=== PATIENT | male | born 1960 | race Two or more races ===

== ENCOUNTER 2024-08-03 11:50 | Inpatient (IN) | payer BC, SELFPAY ==
[2024-08-03] VITALS (8 sets, daily range): BP systolic 107–176; BP diastolic 76–101; PULSE 95–124; RESP 16–95; TEMP 36.6–38.8; O2SAT 93–95; BMI 31.6; BMI 38.2
--- NOTE | 2024-08-03 12:28 | XR_ITS ---
Examination: PA lateral chest 2 views Technique: Upright PA lateral chest 2 views Exam date and time: August 03, 2024 1306 hrs. Indications: Coughing beginning one week ago. Findings: Bilateral pneumonia, diffuse and significant in the right lung, miliary type pattern Mild prominence of ventricle Intact osseous structures Impression: Bilateral pneumonia, significant in the right lung, differential would include active tuberculosis
[2024-08-03 13:13] LABS: Lactate (Lactic Acid) 1.3 mMol/L (0.4-2.0)
[2024-08-03 13:18] LABS: Basophils % (Auto) 0 % (0-2.5); Eosinophils % (Auto) 0 % (0-10); Hematocrit 47.6 % (41.0-53.0); Hemoglobin 16.8 g/dL (13.5-16.0); Immature Granulocytes % (Auto) 0 % (0-0); Immature Granulocytes Auto 0.03 Thou/mm3 (0.00-0.00); Lymphocytes # (Auto) 1.5 Thou/mm3 (1.0-4.8); Lymphocytes % (Auto) 19 % (10-50); Mean Corpuscular HGB Conc 35.3 g/dl (31.0-37.0); Mean Corpuscular Hemoglobin 31.3 pg (25.0-35.0); Mean Corpuscular Volume 89 fL (80-100); Monocytes # (Auto) 0.5 Thou/mm3 (0.0-0.8); Monocytes % (Auto) 7 % (0-12); Neutrophils # (Auto) 5.8 Thou/mm3 (1.8-7.7); Neutrophils % (Auto) 73 % (37-80); Nucleated Red Blood Cell % 0 /100 WBC (0); Platelet Count 136 Thou/mm3 (140-440); RDW Standard Deviation 38.9 fL (35.1-43.9); Red Blood Count 5.36 Miln/mm3 (4.50-5.90); White Blood Count 7.9 Thou/mm3 (3.8-10.6)
[2024-08-03] MEDS: ACETAMINOPHEN 500 MG TABLET 1000 MG PO (13:31)
[2024-08-03 13:40] LABS: Alanine Aminotransferase 59 U/L (10-49); Albumin, Serum 4.1 gm/dL (3.4-4.8); Albumin/Globulin Ratio 1.2 (1.2-2.2); Alkaline Phosphatase 52 U/L (46-116); Anion Gap 10 (7-16); Aspartate Amino Transferase 81 U/L (0-34); BUN/Creatinine Ratio 12 Ratio (12-20); Bilirubin,Total 1.7 mg/dL (0.3-1.2); Blood Urea Nitrogen 14 mg/dL (9-23); Calcium 8.7 mg/dL (8.3-10.6); Calcium (Corrected) 8.7 mg/dL (8.5-10.1); Carbon Dioxide 25.3 mMol/L (20.0-31.0); Chloride 96 mMol/L (98-107); Creatinine (Component) 1.2 mg/dL (0.6-1.3); Estimated Creatinine Clearance 63.6 mL/min (>60); Globulin 3.5 gm/dL (2.3-3.5); Glucose 109 mg/dL (74-106); Osmolality,Calculated 264 (275-295); Potassium 3.9 mMol/L (3.4-5.1); Procalcitonin 0.26 ng/ml (0.0-0.49); Sodium 131 mMol/L (136-145); Total Protein 7.6 gm/dL (5.7-8.2); eGFR > 60 See Note
--- NOTE | 2024-08-03 15:10 | PD.EDRME ---
Rapid Medical Screening Exam RME Arrival date/time: 08/03/24 11:50 64-year-old male presents emergency dept today for complaints of fever and cough with diagnosis of pneumonia outpatient yesterday Chief Complaint: Nausea/Vomiting/Diarrhea Time Seen by Provider: 08/03/24 12:05 Vital signs: Vital Signs Temperature 101.8 F H 08/03/24 12:15 Pulse Rate 109 H 08/03/24 12:15 Respiratory Rate 18 08/03/24 12:15 Blood Pressure 129/90 H 08/03/24 12:15 Pulse Oximetry (%) 95 08/03/24 12:15 Oxygen Delivery Method Room Air 08/03/24 12:15
--- NOTE | 2024-08-03 16:06 | EDNOTE_ITS ---
ED General RME/HPI General Chief complaint: Nausea/Vomiting/Diarrhea Stated complaint: SHORTNESS OF BREATH; RECENTLY DX'D WITH PNEUMONIA Time Seen by Provider: 08/03/24 12:05 Arrival date/time: 08/03/24 11:50 RME / HPI RME / HPI narrative: 08/03/24 11:50 64-year-old male presents emergency dept today for complaints of fever and cough with diagnosis of pneumonia outpatient yesterday DR. PINA MAIN ED EVALUATION: 64 year old male presents to the Emergency Department accompanied by his with complaints of productive cough, hemoptysis, fevers, chills, and shortness of breath. Patient was diagnosed with pneumonia and has been treated with azithromycin as an outpatient but is not getting better; patient states at night he cannot sleep from so much cough and the phlegm. He also mentions he has diarrhea. No nausea, vomiting, constipation, nor blood in the stools. PCP: [facility] Related Data Home Medications ?Medication ?Instructions ?Recorded ?Confirmed azithromycin 250 mg tablet See Rx Instructions PO .COM PLEX 08/04/24 08/04/24 (Zithromax) lisinopril 10 mg tablet 10 mg PO QDAY 08/04/2408/04 Allergies Allergy/AdvReac Type Severity Reaction Status Date / Time No Known Allergies Allergy Verified 08/03/24 11:56 Review of Systems Review of Systems Systems Reviewed: All systems reviewed, normal except as documented Past Medical History Social History SMOKING STATUS: Never smoker SUBSTANCE USE: does not use ALCOHOL: Never ED Exam Narrative Physical exam: GENERAL APPEARANCE: alert and oriented x 4, well-developed, well-nourished, dyspneic VITALS: All vitals were reviewed and the pulse ox is 95% on room air, which is normal according to my interpretation. HEENT: Normocephalic, atraumatic; pupils equal, round, reactive to light; EOMI; mucous membranes pink, moist; oropharynx clear NECK: Supple LUNGS: dyspneic but CTABL; no wheezes, no rales, no rhonchi HEART: Regular rate, regular rhythm; normal S1, S2; no murmurs ABDOMEN: non distended; normal BS; soft, no tenderness, no guarding, no rebound; no masses, no organomegaly, no hernia BACK: no CVA tenderness EXTREMITIES: atraumatic; no edema NEUROLOGIC: awake; alert and oriented x4; cranial nerves II-XII grossly intact; no focal sensory or motor deficits PSYCHIATRIC: appropriate mood and affect SKIN: warm, dry, normal color; no rashes Course Course Course Narrative: 1215: Sepsis alert initiated. Orders made at this time are congruent with ED Adult Sepsis Order List. Re-evaluation is to be completed. 1631: Fluids started. 1650:Sepsis reassessment performed consisting of lab review, vitals, physical exam including auscultation of heart, lungs, and visual evaluation of capillary refills, mucosal membranes and extremities. Quality Measures Current suspected stage: sepsis Possible source: pulmonary Blood cultures ordered: yes Antibiotic ordered: Yes Pertinent labs: 08/03/24 13:03 Lactic Acid 1.3 mMol/L (0.4-2.0) Procalcitonin 0.26 ng/ml (0.0-0.49) sepsis Orders Category Date Time Status Bedside COVID-19 Antigen Test NOW Care 08/03/24 12:28 Completed Bedside Influenza A&B Antigen Test NOW Care 08/03/24 12:28 Completed XR chest 2V Stat Exams 08/03/24 12:28 Completed Blood Culture (Lab) Stat Lab 08/03/24 12:57 Results CBC Stat Lab 08/03/24 13:03 Completed Cocci Serology IgM with reflex to IgG [Cocci Serology, Lab 08/03/24 13:33 Completed Unk History] Stat Comprehensive Metabolic Panel Stat Lab 08/03/24 13:03 Completed Lactate (Lactic Acid) Stat Lab 08/03/24 13:03 Completed Procalcitonin Stat Lab 08/03/24 13:03 Completed Quantiferon-TB* Stat Lab 08/03/24 15:16 Received Acetaminophen Tab [Tylenol ES Tab] Med 08/03/24 12:28 Discontinued 1,000 mg PO X1 ONE Sodium Chloride 0.9% 1000 ml [Ns] 1,000 ml Med 08/03/24 16:22 Discontinued IV 999 mls/hr cefTRIAXone/D5w 1gm IV premix [Rocephin/D5w 1gm IV Med 08/03/24 16:22 Discontinued premix] 1 gm in 50 ml IV X1 Vital Signs Vital signs: Vital Signs Temperature 101.8 F H 08/03/24 12:15 Pulse Rate 109 H 08/03/24 12:15 Respiratory Rate 18 08/03/24 12:15 Blood Pressure 129/90 H 08/03/24 12:15 Pulse Oximetry (%) 95 08/03/24 12:15 Oxygen Delivery Method Room Air 08/03/24 12:15 [facility] Patient data External records reviewed:: [facility] previous records (Reviewed last ED visit dated 01/12/22, discharged with the following: Hypertension) Clinical information provided by:: patient Social determinants that could affect healthcare access:: none Patient has the following chronic illnesses:: Recent pneumonia diagnosis How is presenting disease/condition affected by chronic disease/condition?: e xacerbated by Evaluation data The following diagnostics were reviewed and interpreted by me:: lab results and radiology exam(s) Lab and/or radiology exams considered but not ordered:: none Interpretation Summary: Procedure(s): XR chest 2V Accession Number(s): [id number] cc: Patricia (TJ),Erick SPENCER; Chaitanya Montoya MD; NO PRIMARY/FAMILY,PHYSICIAN~ Examination: PA lateral chest 2 views Technique: Upright PA lateral chest 2 views Exam date and time: August 03, 2024 1306 hrs. Indications: Coughing beginning one week ago. Findings: Bilateral pneumonia, diffuse and significant in the right lung, miliary type pattern Mild prominence of ventricle Intact osseous structures Impression: Bilateral pneumonia, significant in the right lung, differential would include active tuberculosis Dictated By: Chaitanya Montoya MD Medications Medications considered but not ordered:: none Medication administrations:: Medication Administration History Acetaminophen (Acetaminophen 325 Mg Tablet) 650 mg PO Q6H PRN PRN Reason: Fever >100.3, PAIN RATED 1-3 Stop: 09/02/24 17:24 Fluconazole (Fluconazole 100 Mg Tablet) 400 mg PO QDAY [facility] Stop: 08/11/24 14:59 Last Admin: 08/04/24 15:16 Dose: 400 mg Documented By: COSME Heparin Sodium (Porcine) (Heparin Sod Inj 5000 Unit/Ml Vial) 5,000 unit SC Q8HR [facility] Stop: 08/17/24 21:59 Last Admin: 08/05/24 05:07 Dose: 5,000 unit Documented By: ELVA Co-signed By: Admin: 08/04/24 21:19 Dose: 5,000 unit Documented By: ELVA Co-signed By: Admin: 08/04/24 13:49 Dose: 5,000 unit Documented By: COSME Co-signed By: TEENA Admin: 08/04/24 05:14 Dose: 5,000 unit Documented By: ANGLE Co-signed By: FRANTZ Admin: 08/03/24 21:49 Dose: 5,000 unit Documented By: INGRID Co-signed By: FRANTZ Azithromycin 500 mg/ Sodium (Chloride) 250 mls @ 250 mls/hr IV QDAY@2100 [facility] Stop: 08/10/24 19:44 Last Infusion: 08/04/24 22:17 Dose: Infused Documented By: Admin: 08/04/24 20:25 Dose: 250 mls/hr Documented By: Infusion: 08/04/24 19:20 Dose: Infused Documented By: Admin: 08/03/24 21:15 Dose: 250 mls/hr Documented By: INGRID Ceftriaxone Sodium/Dextrose (Rocephin/D5w 1gm Iv Premix) 1 gm in 50 mls @ 100 mls/hr IV QDAY [facility] Stop: 08/10/24 17:33 Last Infusion: 08/04/24 19:20 Dose: Infused Documented By: Admin: 08/04/24 08:31 Dose: 100 mls/hr Documented By: Infusion: 08/03/24 19:10 Dose: Infused Documented By: Admin: 08/03/24 18:40 Dose: 100 mls/hr Documented By: LIA Diltiazem HCl (Diltiazem In D5w 125 Mg) 125 mg in 125 mls @ 5 mls/hr IV .Q24H [facility] Stop: 09/03/24 10:24 Last Admin: 08/04/24 13:14 Dose: 5 mg/hr, 5 mls/hr Documented By: COSME Sodium Chloride (Ns) 1,000 mls @ 75 mls/hr IV .[id number] [facility] Stop: 09/03/24 22:39 Last Admin: 08/04/24 23:15 Dose: 75 mls/hr Documented By: ELVA Levalbuterol HCl (Levalbuterol Rt 0.63 Mg/3 Ml Nebu) 0.63 mg INH Q8HRRT PRN PRN Reason: SHORTNESS OF BREATH OR WHEEZE Stop: 09/02/24 18:15 Ondansetron HCl (Ondansetron Inj 2 Mg/Ml Inj 2 Ml) 4 mg IV Q6H PRN; Protocol PRN Reason: NAUSEA OR VOMITING Stop: 09/02/24 17:24 Discontinued Medications Acetaminophen (Acetaminophen 500 Mg Tablet) 1,000 mg PO X1 ONE Stop: 08/03/24 12:29 Last Admin: 08/03/24 13:31 Dose: 1,000 mg Documented By: OA Amlodipine Besylate (Amlodipine Besylate 5 Mg Tablet) 5 mg PO X1 ONE Stop: 08/04/24 00:16 Last Admin: 08/04/24 00:48 Dose: 5 mg Documented By: CV Diltiazem HCl (Diltiazem Inj 5 Mg/Ml Vial 5 Ml) 15 mg IV X1 ONE Stop: 08/03/24 21:05 Last Admin: 08/03/24 21:36 Dose: 15 mg Documented By: AD Diltiazem HCl (Diltiazem Inj 5 Mg/Ml Vial 5 Ml) 15 mg IV X1 ONE Stop: 08/03/24 23:58 Last Admin: 08/04/24 00:13 Dose: Not Given Documented By: CV Non-Admin Reason: Other, see note Comments: held per MD Garduno Ceftriaxone Sodium/Dextrose (Rocephin/D5w 1gm Iv Premix) 1 gm in 50 mls @ 100 mls/hr IV X1 ONE Stop: 08/03/24 16:51 Last Infusion: 08/03/24 17:23 Dose: Infused Documented By: Admin: 08/03/24 16:33 Dose: 100 mls/hr Documented By: CS Sodium Chloride (Ns) 1,000 mls @ 999 mls/hr IV .Q1H1M ONE Stop: 08/03/24 17:22 Last Infusion: 08/03/24 18:36 Dose: Infused Documented By: Admin: 08/03/24 16:31 Dose: 999 mls/hr Documented By: CS Sodium Chloride (Ns) 1,000 mls @ 999 mls/hr IV .Q1H1M ONE Stop: 08/03/24 18:31 Last Admin: 08/03/24 18:40 Dose: 999 mls/hr Documented By: CS Sodium Chloride (Ns) 500 mls @ 125 mls/hr IV .Q4H [facility] Stop: 09/02/24 18:29 Last Admin: 08/03/24 19:30 Dose: Not Given Documented By: CV Non-Admin Reason: Discontinued Sodium Chloride (Ns) 1,000 mls @ 125 mls/hr IV .Q8H [facility] Stop: 09/02/24 20:29 Last Infusion: 08/05/24 06:32 Dose: Infused Documented By: Admin: 08/04/24 13:13 Dose: 125 mls/hr Documented By: Infusion: 08/04/24 13:13 Dose: Infused Documented By: Admin: 08/04/24 05:14 Dose: 125 mls/hr Documented By: Infusion: 08/04/24 05:14 Dose: Infused Documented By: Admin: 08/03/24 21:20 Dose: 125 mls/hr Documented By: HV Magnesium Sulfate (Magnesium Sulfate Ivpb) 4 gm in 50 mls @ 12.5 mls/hr IV X1 ONE Stop: 08/04/24 00:49 Last Infusion: 08/04/24 19:20 Dose: Infused Documented By: KABaron Admin: 08/03/24 21:11 Dose: 12.5 mls/hr Documented By: HV Sodium Chloride (Ns) 500 mls @ 999 mls/hr IV .Q31M ONE Stop: 08/03/24 21:45 Last Infusion: 08/04/24 19:20 Dose: Infused Documented By: KABaron Admin: 08/03/24 21:51 Dose: 999 mls/hr Documented By: HV Potassium Chloride (Potassium Chloride 20 Meq Tabcr) 20 meq PO X1 ONE Stop: 08/03/24 20:51 Last Admin: 08/03/24 21:10 Dose: 20 meq Documented By: HV Sodium Chloride (Sodium Chloride Rt 10% 15 Ml Nebu) 5 ml INH X1 ONE Stop: 08/03/24 17:26 Tuberculin PPD (Tuberculin Ppd Inj 5 Unit/0.1 Ml Dose) 5 unit ID X1 ONE Stop: 08/03/24 17:31 Last Admin: 08/03/24 21:04 Dose: 5 unit Documented By: RL see above Consultations Consultation(s) initiated? (list below): Yes Consultation #1 (Physician, Specialty, Details): Discussed test HPI, PMHx, lab, radiology results and/or management with hospitalist. Will admit for further evaluation and management. Accepts patient for admission. Time: 16:55 Diagnosis Differential Diagnosis ED Complaint MDM: sepsis, URI, pneumonia Most likely diagnosis given after review of the tests above:: Pneumonia Sepsis Admission Indicated Admission indicated?: indicated Explain why admission is indicated or not indicated:: Diagnoses meet admission criteria. Admission Request Was there a request for admission?: Yes Admission Attestation Admission request attestation: Discussed case with [] from Hospitalist service regarding admission. Discussed patients ED course, exam findings, labs, and radiology results. The Hospitalist [agrees,declines] to accept the patient for admission. Disposition Plan Disposition Plan: Admit Medical Decision Making MDM Narrative MDM Narrative: I, Kita Garcia am scribing for and in the presence of Dr. Pina. Differential Diagnosis Differential Diagnosis: sepsis, URI, pneumonia Lab Data 08/05/24 04:10 08/05/24 04:10 Labs: Lab Results 08/03/24 08/03/24 Range/Units 13:03 13:33 WBC 7.9 (3.8-10.6) Thou/mm3 RBC 5.36 (4.50-5.90) Miln/mm3 Hgb 16.8 H (13.5-16.0) g/dL Hct 47.6 (41.0-53.0) % MCV 89 (80-100) fL MCH 31.3 (25.0-35.0) pg MCHC 35.3 (31.0-37.0) g/dl RDW Std Deviation 38.9 (35.1-43.9) fL Plt Count 136 L (140-440) Thou/mm3 Neut % (Auto) 73 (37-80) % Lymph % (Auto) 19 (10-50) % [place] % (Auto) 7 (0-12) % Eos % (Auto) 0 (0-10) % Baso % (Auto) 0 (0-2.5) % Neut # (Auto) 5.8 (1.8-7.7) Thou/mm3 Lymph # (Auto) 1.5 (1.0-4.8) Thou/mm3 [place] # (Auto) 0.5 (0.0-0.8) Thou/mm3 Eos # (Auto) 0.0 (0.0-0.5) Thou/mm3 Baso # (Auto) 0.0 (0.0-0.2) Thou/mm3 Immature Gran # (Auto) 0.03 H (0.00-0.00) Thou/mm3 Absolute Nucleated RBC 0.00 (0.00-0.00) Thou/mm3 Immature Gran % 0 (0-0) % Nucleated RBC % 0 (0) /100 WBC Sodium 131 L (136-145) mMol/L Potassium 3.9 (3.4-5.1) mMol/L Chloride 96 L (98-107) mMol/L Carbon Dioxide 25.3 (20.0-31.0) mMol/L Anion Gap 10 (7-16) BUN 14 (9-23) mg/dL Creatinine 1.2 (0.6-1.3) mg/dL Estim Creat Clear Calc 63.6 (>60) mL/min eGFR > 60 (60 - ) See Note BUN/Creatinine Ratio 12 (12-20) Ratio Glucose 109 H (74-106) mg/dL Calculated Osmolality 264 L (275-295) Lactic Acid 1.3 (0.4-2.0) mMol/L Calcium 8.7 (8.3-10.6) mg/dL Corrected Calcium 8.7 (8.5-10.1) mg/dL Total Bilirubin 1.7 H (0.3-1.2) mg/dL AST 81 H (0-34) U/L ALT 59 H (10-49) U/L Alkaline Phosphatase 52 (46-116) U/L Total Protein 7.6 (5.7-8.2) gm/dL Albumin 4.1 (3.4-4.8) gm/dL Globulin 3.5 (2.3-3.5) gm/dL Albumin/Globulin Ratio 1.2 (1.2-2.2) Procalcitonin 0.26 (0.0-0.49) ng/ml Coccidioides IgM Ab Positive A (Negative) Critical Care Time Critical Care Time Critical Care Time: Yes Total Critical Care Time (min.): 30 Attestation: The high probability of sudden, clinically significant deterioration in the patient?s condition required the highest level of my preparedness to intervene urgently. The services I provided to this patient were to treat and/or prevent clinically significant deterioration. Services included the following: chart data review, reviewing nursing notes and/or old charts, documentation time, cardiology consultants collaboration regarding findings and treatment options, medication orders and management, direct patient care, vital sign assessments and ordering, interpreting and reviewing diagnostic studies and lab tests. Aggregate critical care time includes only time during which I was engaged in work directly related to the patient?s care, as described above, whether at bedside or elsewhere in the Emergency Department. It did not include time spent performing other reported procedures or the services of residents, students, nurses or physician assistants. Discharge Plan Plan Patient Disposition: Admit Acute Care w/in Hospital Problem List Clinical Impression: Pneumonia, Sepsis
[2024-08-03] MEDS: SODIUM CHLORIDE 0.9% 1000 ML 1,000 ML 999 ML IV ×2 (16:31→18:40)
[2024-08-03] MEDS: cefTRIAXone/D5w 1gm IV premix 1 GM/50 ML BAG IV ×2 (16:33→18:40)
--- NOTE | 2024-08-03 17:38 | ESHP_ITS ---
<Statement entered by Carmelo Ramírez MD - 08/04/24 08:02> Patient coming in with complaints of shortness of breath and coughing along with hemoptysis. Patient has failed outpatient antibiotics, will admit and treat for pneumonia and rule out cocci infection and TB with PPD test. Patient has low suspicion for TB infection as he denies any weight loss, night sweats, severe fevers or exposure. Case discussed with team. Carmelo Ramírez MD PGY3 Documentation for date of: 08/03/24 HPI History of Present Illness History of present illness: Mr. Gan is a 64-year-old male with no past medical history presented to the ED complaining of shortness of breath and cough for the past 4 days for which he went to a clinic and was prescribed antibiotics patient states he took the antibiotics twice yesterday and once this morning without relief and continued to have worsening cough and noticed streaks of blood in his sputum. Patient denies any previous history of similar. Patient denies any fever chills or night sweats and also denies any recent weight loss. Patient also denies any recent travels or sick contacts. Patient denies any abdominal pain, nausea vomiting or diarrhea. Patient works in the [employer]. ED course In the ED initial vitals include blood pressure 129/90, pulse 109, respirations 18, temperature 101.8, saturating at 95% on room air. Labs are significant for hemoglobin 16.8, platelet 136, sodium 131, chloride 96, glucose 109, total billirubin 1.7, AST 81, ALT 59 In the ED patient is given 1 L bolus of normal saline, 1 g of acetaminophen, and 1 g of ceftriaxone PMH: No significant past medical history PSH: Appendectomy SH: Patient denies smoking and drug use, patient endorses to drinking beer occasionally at parties. Home meds: Patient does not take any medications at home Review of Systems Review of Systems Systems Reviewed: All systems reviewed, normal except as documented Exam Vital Signs Temp Pulse Resp BP Pulse Ox O2 Del Method 98.4 F 95 16 107/76 95 Room Air 08/03/24 16:01 08/03/24 16:01 08/03/24 16:01 08/03/24 16:01 08/03/24 16:01 08/03/24 16:01 Narrative Exam GENERAL: A&Ox3 . elderly obese male, appears to be in mild distress due to cough NEURO: no focal neurological deficits noted HEENT: Atraumatic, Normocephalic. mucous membranes moist. Eyes open, symmetrical, & clear HEART: Normal Heart Sounds LUNGS: decreased breath sounds heard bilaterally ABDOMEN: soft, non-distended, non-tender, bowel sounds heard, no guarding or rebound tenderness SKIN: No Rash or ecchymoses EXTREMITIES: No edema, tenderness, able to move all 4 extremities, pedal pulses palpated Results: Labs 08/04/24 05:28 08/04/24 05:28 Labs: Short CBC 08/03/24 Range/Units 13:03 WBC 7.9 (3.8-10.6) Thou/mm3 Hgb 16.8 H (13.5-16.0) g/dL Hct 47.6 (41.0-53.0) % Plt Count 136 L (140-440) Thou/mm3 BMP 08/03/24 13:03 Sodium 131 L Potassium 3.9 Chloride 96 L Carbon Dioxide 25.3 BUN 14 Creatinine 1.2 Glucose 109 H Calcium 8.7 Liver Function 08/03/24 Range/Units 13:03 Total Bilirubin 1.7 H (0.3-1.2) mg/dL AST 81 H (0-34) U/L ALT 59 H (10-49) U/L Alkaline Phosphatase 52 (46-116) U/L Albumin 4.1 (3.4-4.8) gm/dL Quality Measures Quality Measures sepsis Current suspected stage: sepsis Possible source: pulmonary Blood cultures ordered: yes Antibiotic ordered: Yes Medications Home Medications and Allergies Allergies Allergy/AdvReac Type Severity Reaction Status Date / Time No Known Allergies Allergy Verified 08/03/24 11:56 Visit Medications Acetaminophen (Acetaminophen 325 Mg Tablet) 650 mg PO Q6H PRN PRN Reason: Fever >100.3, PAIN RATED 1-3 Stop: 09/02/24 17:24 Heparin Sodium (Porcine) (Heparin Sod Inj 5000 Unit/Ml Vial) 5,000 unit SC Q8HR [facility] Stop: 08/17/24 21:59 Sodium Chloride (Ns) 1,000 mls @ 999 mls/hr IV .Q1H1M ONE Stop: 08/03/24 18:31 Sodium Chloride (Ns) 500 mls @ 125 mls/hr IV .Q4H [facility] Stop: 09/02/24 18:29 Azithromycin 500 mg/ Sodium (Chloride) 250 mls @ 250 mls/hr IV QDAY [facility] Stop: 08/10/24 17:33 Ceftriaxone Sodium/Dextrose (Rocephin/D5w 1gm Iv Premix) 1 gm in 50 mls @ 100 mls/hr IV QDAY [facility] Stop: 08/10/24 17:33 Azithromycin 500 mg/ Sodium (Chloride) 250 mls @ 250 mls/hr IV X1 ONE Stop: 08/03/24 18:44 Ondansetron HCl (Ondansetron Inj 2 Mg/Ml Inj 2 Ml) 4 mg IV Q6H PRN; Protocol PRN Reason: NAUSEA OR VOMITING Stop: 09/02/24 17:24 Discontinued Medications Acetaminophen (Acetaminophen 500 Mg Tablet) 1,000 mg PO X1 ONE Stop: 08/03/24 12:29 Last Admin: 08/03/24 13:31 Dose: 1,000 mg Ceftriaxone Sodium/Dextrose (Rocephin/D5w 1gm Iv Premix) 1 gm in 50 mls @ 100 mls/hr IV X1 ONE Stop: 08/03/24 16:51 Last Infusion: 08/03/24 17:23 Dose: Infused Sodium Chloride (Ns) 1,000 mls @ 999 mls/hr IV .Q1H1M ONE Stop: 08/03/24 17:22 Last Admin: 08/03/24 16:31 Dose: 999 mls/hr Sodium Chloride (Sodium Chloride Rt 10% 15 Ml Nebu) 5 ml INH X1 ONE Stop: 08/03/24 17:26 Tuberculin PPD (Tuberculin Ppd Inj 5 Unit/0.1 Ml Dose) 5 unit ID X1 ONE Stop: 08/03/24 17:31 Assessment & Plan Plan Mr. Gan is a 64-year-old male with no past medical history presented to the ED complaining of shortness of breath and cough for the past 4 days for which he went to a clinic and was prescribed antibiotics patient states he took the antibiotics twice yesterday and once this morning without relief and continued to have worsening cough and noticed streaks of blood in his sputum. Pt is admitted to the hospital for further management of community acquired pneumonia. #Sepsis 2/2 #Community acquired pneumonia #Hemoptysis -Pt is complaining of SOB, cough for 4 days, he noticed streaks of blood today in his sputum -Pt meets sepsis criteria with SIRS 2/4 tachycardia, and fever plus end organ damage, evidence of CHRIS -Lactic acid 1.4, procalcitonin 0.26 -In the ED pt receiced rocephin 1gm and 1L bolus fluid -CXR- Bilateral pneumonia, significant in the right lung Plan: -Blood and sputum cultured ordered -Supplemental oxygen PRN -IV fluids ordered -Cocci, RSV and TB PPD skin test ordered -Influenza and covid negative -Rocephin and azithromycin started 08/03- #Acute Kidney injury -On admission Cr 1.2 and baseline 1.0, likely secondary to decreased oral intake -IV fluids given -Will continue to monitor daily CMP -Avoid nephrotoxic and renally dose medications #Transiminitis #Hyerbillirubinemia -On Admission Total billirubin 1.7 and AST 81 and ALT 59 -Pt denies alcohol use or RUQ pain -Liver US ordered -will continue to monitor daily labs Health Maintenance Disposition: Med-tele DVT Prophylaxis: Heparin 5000 units SC Q8 hrs GI Prophylaxis: not indicated Diet: Cardiac Diet Lines: Peripheral lines Code status: Full Assessment and plan discussed with my senior resident Dr. Ramírez & attending physician Dr. Reina Moody (PGY-1)- Internal medicine resident Attending Provider Attestation/Addendum I attest that I was physically present for the evaluation, physical examination, lab and imaging review of the patient with the residents. I discussed the case with the residents and agree with the findings and plans of care as documented above. Patient is a 64 years old male with no known past medical history presented to the ED with complaint of shortness of breath and cough for past 4 days. Patient initially started having cough with phlegm and mild shortness of breath which has been worsening. He also has noticed streaks of blood in his sputum. He went to his PCP yesterday and received some antibiotics. Despite antibiotic, he continued to worsen and decided to visit the ED. Patient works in [employer] but denies any fever, chills, night sweats, recent weight loss, sick contacts or travel. In the ED, he was found to be tachycardic, had a temperature of 101.8 ?F. He was saturating well on room air. Lab results were significant for sodium of 131, total bilirubin 1.7, AST 81 and ALT 59. Chest x-ray was done, which shows bilateral extensive pneumonia, concerning for cocci/TB. We will admit the patient for management of sepsis secondary to community-acquired pneumonia. We will start him on IV Rocephin and azithromycin. We will obtain cocci, RSV serology and PPD. Patient also noted to have CHRIS with mild creatinine increased to 1.2, he received 30 cc/kg IV fluid, we will monitor closely for kidney function. Given patient's liver function, we will obtain liver ultrasound. Amanda Huang MD
--- NOTE | 2024-08-03 18:46 | XR_ITS ---
Examination: Abdomen sonogram, Limited Date and time of exam: August 03, 2024 2036 hrs. Indications: Elevated transaminase and bilirubin on laboratory examination today Technique: Real-time kim scale transabdominal sonographic images of the upper abdomen obtained. Findings: Contracted gallbladder Gallbladder wall 0.3 cm Common bile duct 0.4 cm Pancreatic head prominent 3.7 cm Liver 17.1 cm fatty infiltration Normal hepatopedal portal venous Patent IVC Impression: Recommend repeating the gallbladder portion of the study with fasting No extrahepatic biliary tract dilatation Prominent pancreatic head 3.7 cm, recommend CT scan abdomen pelvis post intravenous contrast follow-up
--- NOTE | 2024-08-03 18:50 | PC.NURSE ---
Received phone report from ED nurse Amelie at [phone]. Patient not on the floor yet. Gave hand off report to night nurse Vero RN and Diane RN.
[2024-08-03 19:27] LABS: Respiratory Syncytial Virus Ag Negative (Negative)
--- NOTE | 2024-08-03 20:39 | PC.NURSE ---
POWER CUTTING MACHINE OPERATOR called due to concern for change of rhythm, EKG, cxr, meds (see chart) ordered.
--- NOTE | 2024-08-03 20:43 | EKG_ITS ---
[facility] Test Date: 2024-08-03 Pat Name: CHANDAN MICHAELS [facility] Gynecologist: ROBERT : 1960 Requested By: Amanda Huang Order Number: [id number] [place] MD: Amanda Huang Measurements Intervals [place] Rate: 125 P: [place]: QRS: -5 QRSD: 93 T: 33 QT: 286 QTc: 413 Interpretive Statements ATRIAL FIBRILLATION WITH RAPID VENTRICULAR RESPONSE NONSPECIFIC T-WAVE ABNORMALITY ABNORMAL RHYTHM ECG No previous ECG available for comparison /store/S0/[id number]/ecg/[id number]
--- NOTE | 2024-08-03 20:49 | XR_ITS ---
Examination: AP chest single view Technique one AP portable upright chest single view Exam date and time: August 03, 2024: 36 hours Comparison August 03, 2024 1306 hrs. Indications: Atrial fibrillation chest pain today. Findings: Diffuse significant right lung pneumonia Mild enlargement cardiac contour with prominent vascular congestion Moderate osteopenia Impression: Diffuse significant bilateral pneumonia Mild heart failure
[2024-08-03] MEDS: TUBERCULIN PPD INJ 5 UNIT/0.1 ML DOSE ID (21:04)
--- NOTE | 2024-08-03 21:09 | PD.RESEVENT ---
Documentation for date of: 08/03/24 Event Note Event Note: At 12:35 PM rapid response was called to room 360 due to patient having A-fib. Record reviewed vitals were blood pressure 148/100, heart rate 124, oxygen saturation 95 on room air, respiratory rate 28. Patient denied shortness of breath, chest pain, was lying in the bed during the abdominal ultrasound. EKG showed A-fib with RVR, on telemetry heart rate was in the range 120s?140s. On examination rate irregularly irregular. On ausculation mild wheezing. Ordered diltiazem 15 mg IV once, magnesium 4 g IV once, bolus of fluids 500 ml, potassium, magnesium, lactate levels, chest x-ray. Plan of care discussed with attending Dr. Hoang, PGY-[address] Garduno. Cara David MD, PGY 1.
[2024-08-03] MEDS: POTASSIUM CHLORIDE 20 mEq TABCR PO (21:10)
[2024-08-03] MEDS: Magnesium Sulfate 4 GM Ivpb 4 GM/50 ML BAG IV (21:11)
[2024-08-03] MEDS: AZITHROMYCIN INJ 500 MG in SODIUM CHLORIDE 0.9% 250 ML 250 ML 250 MG IV (21:15)
--- NOTE | 2024-08-03 21:18 | PC.NURSE ---
TB skin test done on the inner left forearm at 2103. Med syringe expiration date 08/03/24 @ 2130.
[2024-08-03] MEDS: SODIUM CHLORIDE 0.9% 1000 ML 1,000 ML 125 ML IV (21:20)
[2024-08-03] MEDS: DILTIAZEM INJ 5 MG/ML VIAL 5 ML 15 MG IV (21:36)
[2024-08-03] MEDS: HEPARIN SOD INJ 5000 UNIT/ML VIAL SC (21:49)
[2024-08-03] MEDS: SODIUM CHLORIDE 0.9% 500 ML 500 ML 999 ML IV (21:51)
[2024-08-04] VITALS (11 sets, daily range): BP systolic 128–164; BP diastolic 85–97; PULSE 63–137; RESP 19–96; TEMP 36.1–37.3; O2SAT 92–97
[2024-08-04 00:22] LABS: Magnesium 2.1 mg/dL (1.6-2.6)
[2024-08-04] MEDS: amLODIPine BESYLATE 5 MG TABLET PO (00:48)
[2024-08-04] MEDS: SODIUM CHLORIDE 0.9% 1000 ML 1,000 ML 125 ML IV ×2 (05:14→13:13)
[2024-08-04] MEDS: HEPARIN SOD INJ 5000 UNIT/ML VIAL SC ×3 (05:14→21:19)
[2024-08-04 05:48] LABS: Quantiferon-TB* See Sep Rpt
[2024-08-04 05:51] LABS: Basophils % (Auto) 0 % (0-2.5); Eosinophils % (Auto) 0 % (0-10); Hematocrit 43.1 % (41.0-53.0); Hemoglobin 15.1 g/dL (13.5-16.0); Immature Granulocytes % (Auto) 1 % (0-0); Immature Granulocytes Auto 0.04 Thou/mm3 (0.00-0.00); Lymphocytes # (Auto) 2.1 Thou/mm3 (1.0-4.8); Lymphocytes % (Auto) 32 % (10-50); Mean Corpuscular Hemoglobin 31.3 pg (25.0-35.0); Mean Corpuscular Volume 89 fL (80-100); Monocytes # (Auto) 0.5 Thou/mm3 (0.0-0.8); Monocytes % (Auto) 7 % (0-12); Neutrophils # (Auto) 3.9 Thou/mm3 (1.8-7.7); Neutrophils % (Auto) 60 % (37-80); Nucleated Red Blood Cell % 0 /100 WBC (0); Platelet Count 126 Thou/mm3 (140-440); RDW Standard Deviation 39.7 fL (35.1-43.9); Red Blood Count 4.83 Miln/mm3 (4.50-5.90); White Blood Count 6.5 Thou/mm3 (3.8-10.6)
[2024-08-04 06:51] LABS: Glucose Estimated Average 120 mg/dL (80-131); Hemoglobin A1C 5.8 % Hgb (4.8-6.0)
[2024-08-04 06:57] LABS: Alanine Aminotransferase 51 U/L (10-49); Albumin, Serum 3.6 gm/dL (3.4-4.8); Albumin/Globulin Ratio 1.2 (1.2-2.2); Alkaline Phosphatase 45 U/L (46-116); Anion Gap 11 (7-16); Aspartate Amino Transferase 65 U/L (0-34); BUN/Creatinine Ratio 14 Ratio (12-20); Bilirubin,Total 0.8 mg/dL (0.3-1.2); Blood Urea Nitrogen 13 mg/dL (9-23); Calcium 7.9 mg/dL (8.3-10.6); Calcium (Corrected) 8.2 mg/dL (8.5-10.1); Carbon Dioxide 21.9 mMol/L (20.0-31.0); Cardiac Risk Estimate 5.9 RATIO (4.0-6.7); Chloride 103 mMol/L (98-107); Cholesterol 82 mg/dL (132-200); Creatinine (Component) 0.9 mg/dL (0.6-1.3); Estimated Creatinine Clearance 93.4 mL/min (>60); Globulin 2.9 gm/dL (2.3-3.5); Glucose 99 mg/dL (74-106); HDL Cholesterol 14 mg/dL (40-60); LDL Cholesterol,Calculated 49 mg/dL (0-130); Magnesium 2.6 mg/dL (1.6-2.6); Osmolality,Calculated 272 (275-295); Phosphorous 2.8 mg/dL (2.4-5.1); Potassium 4.2 mMol/L (3.4-5.1); Sodium 136 mMol/L (136-145); Thyroid Stimulating Hormone 0.81 uIU/mL (0.55-4.78); Total Protein 6.5 gm/dL (5.7-8.2); Triglycerides 96 mg/dL (30-150); eGFR > 60 See Note
[2024-08-04] MEDS: cefTRIAXone/D5w 1gm IV premix 1 GM/50 ML BAG IV (08:31)
--- NOTE | 2024-08-04 10:14 | PC.NURSE ---
drs at nurse station, updated about pt HR in 130's and high blood pressure. no new orders received. pt doesnt complain about any chest pain, laying in bed. per dr, will put orders in.
--- NOTE | 2024-08-04 10:24 | ECHO_ITS ---
Transthoracic Echo Report Ht (in): 65 Wt (lb): 230 Exam Location: Portable Status: Inpatient Deputy Chief Magistrate: GILBERT Rafael^^^^ Indications: Procedure Performed: BP: 138 / 82 HR: 110 Rhythm: Atrial fibrillation Technical Quality: Fair MEASUREMENTS (Male / Female) Normal Values 2D ECHO LV Diastolic Diameter PLAX 5.0 cm 4.2 - 5.9 / 3.9 - 5.3 cm LV Systolic Diameter PLAX 4.0 cm IVS Diastolic Thickness 1.1 cm 0.6 - 1.0 / 0.6 - 0.9 cm LVPW Diastolic Thickness 1.2 cm 0.6 - 1.0 / 0.6 - 0.9 cm LV Relative Wall Thickness 0.5 LVOT Diameter 1.7 cm Aortic Root Diameter 4.3 cm LA Systolic Diameter LX 4.2 cm 3.0 - 4.0 / 2.7 - 3.8 cm LV Ejection Fraction MOD 4C 36.3 % LV Cardiac Index MOD 4C 5459.3 cm?/min?m? LV Ejection Fraction 4C AL 39.5 % LV Cardiac Index 4C AL 6170.7 cm?/min?m? LA Volume Index 62.4 cm?/m? 16 - 28 cm?/m? DOPPLER AV Peak Velocity 150.0 cm/s AV Peak Gradient 9.0 mmHg AV Mean Gradient 6.0 mmHg AV Velocity Time Integral 23.9 cm AI Peak Velocity 274.0 cm/s AI Peak Gradient 30.0 mmHg AI Pressure Half Time 440.0 ms LVOT Peak Velocity 104.0 cm/s LVOT Peak Gradient 4.3 mmHg LVOT Velocity Time Integral 18.9 cm LVOT Cardiac Index 2109.9 cm?/min?m? AV Area Cont Eq vti 1.8 cm? AV Area Cont Eq pk 1.6 cm? MV Peak Velocity 81.8 cm/s MV Peak Gradient 2.7 mmHg MV Mean Velocity 50.3 cm/s MV Mean Gradient 1.0 mmHg MV Area PHT 4.7 cm? MR Peak Velocity 515.0 cm/s MR Peak Gradient 106.1 mmHg Mitral E Point Velocity 81.5 cm/s LV E' Lateral Velocity 8.2 cm/s Mitral E to LV E' Lateral Ratio 9.9 LV E' Septal Velocity 7.3 cm/s Mitral E to LV E' Septal Ratio 11.2 TR Peak Velocity 265.0 cm/s TR Peak Gradient 28.1 mmHg PV Peak Velocity 94.7 cm/s PV Peak Gradient 3.6 mmHg RVOT Peak Velocity 58.4 cm/s FINDINGS Left Ventricle The left ventricular ejection fraction is mildly decreased, mild global hypokinesis LVEF estimated at 40-45%. There is grade III diastolic dysfunction of the left ventricle (restrictive filling pattern). Right Ventricle The right ventricle is normal in size and systolic function. The estimated right ventricular systolic pressure, 45 mmHg. Left Atrium Moderately increased left atrial volume 62.4 mL/m?. Right Atrium The right atrium is normal by two-dimensional imaging, color flow and Doppler imaging with no structural abnormalities, no thrombus formation present. Atrial Septum The interatrial septum appears normal with no evidence of a shunt. Aorta The aorta is normal by two-dimensional, color flow and Doppler interrogation. Mitral Valve [id number] mitral regurgitation. Mild thickening of the mitral valve leaflets. Mild mitral annular calcification. Aortic Valve Aortic valve sclerosis. Eccentric aortic regurgitation jet directed at the mitral valve. Tricuspid Valve There is mild tricuspid valve regurgitation. Pulmonic Valve Trivial pulmonic valve regurgitation. Vessels The pulmonary artery appears normal. The inferior vena cava pulmonary and hepatic veins appear normal. Pericardium The pericardium is normal by two-dimensional imaging. There is no significant pericardial effusion. CONCLUSIONS indication: Afib w/ RVR Normal size LV with MIld global hypokinesis LVEF 40% Normal RV size and fucntion RVSP mildly elevated 45 mmHg LA is moderatley dilated Mild MAC with moderate 2+ miotral regurgitation Mild tricuspid regurgitation AOV scelerosis with mild aortic regurgitation Aminta Ansari (Electronically Signed) Final Date: 04 August 2024 12:57
--- NOTE | 2024-08-04 10:26 | XR_ITS ---
Examination: CT abdomen with intravenous contrast CT pelvis with intravenous contrast 2-D coronal reconstructions 2-D sagittal reconstructions Date and time of exam:August 04, 2024 1223 hrs. Indications: Ultrasound abdomen the grade 2024 enlarged pancreatic head. CTDI: vol (mGy) 11.9 DLP: (mGycm) 808 Technique: Multiple axial sections of the abdomen and pelvis have been obtained. 64 slice high-resolution scanner used. 3 mm axial sections have been obtained, post intravenous injection 60 cc [id number] 2-D sagittal, coronal reconstructions obtained. Low dose protocols were performed. One or more of the following dose reduction techniques were used; automated exposure control, adjustment of the mA and/or KV according to patient size, use of iterative reconstruction technique. Findings: Diffuse right lung pneumonia. Left base pneumonia Mild enlargement cardiac contour Fatty liver Contracted gallbladder No pancreatic edema AP dimension pancreatic head 2.6 cm No dilated pancreatic duct Bilateral benign renal cysts No hydronephrosis Aorta normal size No pericecal inflammatory change No bowel obstruction Intact urinary bladder Normal seminal vesicles Transverse prostate dimension 5.4 cm Impression: Diffuse right lung pneumonia Left base pneumonia No pancreatic mass or peripancreatic edema
--- NOTE | 2024-08-04 10:49 | PC.NURSE ---
pt has a order for diltezam iv drip.pt is on [facility] as a tele bed.charge nurse yayo updated that pt has a order to transfer pt to tele [facility] pt need iv drip .charge nurse updated she said they will move pt from 260 and after that we will transfer the patient 360 to 260.
--- NOTE | 2024-08-04 10:50 | PC.SS ---
Patient Ziggy Gan is a 64 Year old male admitted for SOB, Cough and PNA. SS contacted patient's , Devante Hanson who reports patient lives at home with her and is also surrogate decision maker, . Patient is able to ambulate independently prior to admission and was able to complete all ADL's independently. patient was seen at [facility] in [place]. Choice of Pharmacy is [facility]. At time of discharge patient will return home, family will provide transportation. Next of Kin, , Devante Hanson Discharge Plan: Home
--- NOTE | 2024-08-04 10:53 | PC.NURSE ---
dr groves updated that pt is at [facility] when pt move to tele they will start a drip .dr groves said she will come and see patient.
--- NOTE | 2024-08-04 11:35 | PC.NURSE ---
waiting for bed assigned to pt so pt moved to tele for iv drip.
--- NOTE | 2024-08-04 11:36 | PC.SS ---
SS follow up note; TB R/O pending. Patient is on IV ABX. Coxy results pending. When patient is medically cleared patient will return back home.
[2024-08-04] MEDS: DILTIAZEM in D5W 125 MG 125 MG/125 ML BAG IV (13:14)
--- NOTE | 2024-08-04 13:18 | PC.NURSE ---
room 260 ready for pt to be transferred. called and gave report to Radha REICH on phone at [phone]. pt went to CT then from CT pt will go to room 260
--- NOTE | 2024-08-04 13:26 | ESPR_ITS ---
<Statement entered by Uzair Wilkinson MD - 08/05/24 13:29> Senior Resident Attestation: I supervised/discussed management plan with business services intern physician Dr. Moody, and was involved in the care of this patient. I personally saw and examined the patient and discussed the assessment and plan with the entire medicine team, including my attending. I agree with the assessment and plan as documented. Patient's care was discussed with attending physician, Dr. Huang. Uzair Wilkinson MD PGY-2. Documentation for date of: 08/04/24 Subjective Subjective Interval history: Overnight team reported patient had rapid response and patient was found to be in A-fib with RVR with heart rate in 140s patient was given diltiazem and magnesium. Patient seen and examined at bedside this morning patient continues to be in A-fib with RVR with heart rate of 130s diltiazem drip is started patient is transferred to telemetry. An echocardiogram is ordered. patient denies any chest pain, or shortness of saturating on room air at 94%. Patient denies any abdominal pain constipation or dysuria/urinary urgency. Patient AST and ALT is elevated and ultrasound of the liver showed pancreatic head prominence 3.7cm. CT of abdomen/pelvis did not show pancreatic mass or peripancreatic edema. Cocci is positive, will start fluconazole. Exam Vital Signs Temp Pulse Resp BP Pulse Ox O2 Del Method O2 Flow Rate 98.7 F 137 H 19 135/96 H 95 Nasal Cannula 4 08/04/24 08:00 08/04/24 13:14 08/04/24 08:00 08/04/24 13:14 08/04/24 08:00 08/04/24 08:00 08/04/24 08:00 Narrative Exam GENERAL: A&Ox3 . elderly obese male, laying in bed, not in acute distress NEURO: no focal neurological deficits noted HEENT: Atraumatic, Normocephalic. mucous membranes moist. Eyes open, symmetrical, & clear HEART: Normal Heart Sounds LUNGS: decreased breath sounds heard bilaterally ABDOMEN: soft, non-distended, non-tender, bowel sounds heard, no guarding or rebound tenderness SKIN: No Rash or ecchymoses EXTREMITIES: No edema, tenderness, able to move all 4 extremities, pedal pulses palpated Objective Labs 08/05/24 04:10 08/05/24 04:10 Labs: Laboratory Results - last 24 hr 08/03/24 08/03/24 08/03/24 13:03 18:28 21:10 WBC RBC Hgb Hct MCV MCH MCHC RDW Std Deviation Plt Count Neut % (Auto) Lymph % (Auto) [place] % (Auto) Eos % (Auto) Baso % (Auto) Neut # (Auto) Lymph # (Auto) [place] # (Auto) Eos # (Auto) Baso # (Auto) Immature Gran # (Auto) Absolute Nucleated RBC Immature Gran % Nucleated RBC % Sodium 131 L Potassium 3.9 Chloride 96 L Carbon Dioxide 25.3 Anion Gap 10 BUN 14 Creatinine 1.2 Estim Creat Clear Calc 63.6 eGFR > 60 BUN/Creatinine Ratio [address] Glu mg/dL Hemoglobin A1c Calculated Osmolality 264 L Lactic Acid 1.3 1.0 Calcium 8.7 Corrected Calcium 8.7 Phosphorus Magnesium 2.1 Total Bilirubin 1.7 H AST 81 H ALT 59 H Alkaline Phosphatase 52 Total Protein 7.6 Albumin 4.1 Globulin 3.5 Albumin/Globulin Ratio 1.2 Triglycerides Cholesterol LDL Cholesterol, Calc HDL Cholesterol Cholesterol/HDL Ratio Procalcitonin 0.26 TSH RSV Rapid Negative 08/04/24 05:28 WBC 6.5 RBC 4.83 Hgb 15.1 Hct 43.1 MCV 89 MCH 31.3 MCHC 35.0 RDW Std Deviation 39.7 Plt Count 126 L Neut % (Auto) 60 Lymph % (Auto) 32 [place] % (Auto) 7 Eos % (Auto) 0 Baso % (Auto) 0 Neut # (Auto) 3.9 Lymph # (Auto) 2.1 [place] # (Auto) 0.5 Eos # (Auto) 0.0 Baso # (Auto) 0.0 Immature Gran # (Auto) 0.04 H Absolute Nucleated RBC 0.00 Immature Gran % 1 H Nucleated RBC % 0 Sodium 136 Potassium 4.2 Chloride 103 Carbon Dioxide 21.9 Anion Gap 11 BUN 13 Creatinine 0.9 Estim Creat Clear Calc 93.4 eGFR > 60 BUN/Creatinine Ratio [address] Glu mg/dL 120 Hemoglobin A1c 5.8 Calculated Osmolality 272 L Lactic Acid Calcium 7.9 L Corrected Calcium 8.2 L Phosphorus 2.8 Magnesium 2.6 Total Bilirubin 0.8 D AST 65 H ALT 51 H Alkaline Phosphatase 45 L Total Protein 6.5 Albumin 3.6 D Globulin 2.9 Albumin/Globulin Ratio 1.2 Triglycerides 96 Cholesterol 82 L LDL Cholesterol, Calc 49 HDL Cholesterol 14 L Cholesterol/HDL Ratio 5.9 Procalcitonin TSH 0.81 RSV Rapid Quality Measures Quality Measures sepsis Current suspected stage: sepsis Possible source: pulmonary Blood cultures ordered: yes Antibiotic ordered: Yes Assessment & Plan Assessment Current Active Medications: Generic Name Dose Route Start Last Admin Trade Name Freq PRN Reason Stop Dose Admin Acetaminophen 650 mg 08/03/24 17:25 Acetaminophen 325 Mg Tablet PO 09/02/24 17:24 Q6H PRN Fever >100.3, PAIN RATED 1-3 Heparin Sodium (Porcine) 5,000 unit 08/03/24 22:00 08/04/24 05:14 Heparin Sod Inj 5000 Unit/Ml Vial SC 08/17/24 21:59 5,000 unit Q8HR NANDO Administration Azithromycin 500 mg/ Sodium 250 mls @ 250 mls/hr 08/03/24 19:45 08/03/24 21:15 Chloride IV 08/10/24 19:44 250 mls/hr QDAY@2100 NANDO Administration Ceftriaxone Sodium/Dextrose 1 gm in 50 mls @ 100 mls/hr 08/03/24 17:34 08/04/24 08:31 Rocephin/D5w 1gm Iv Premix IV 08/10/24 17:33 100 mls/hr QDAY NANDO Administration Sodium Chloride 1,000 mls @ 125 mls/hr 08/03/24 20:30 08/04/24 13:13 Ns IV 09/02/24 20:29 125 mls/hr .Q8H NANDO Administration Diltiazem HCl 125 mg in 125 mls @ 5 mls/hr 08/04/24 10:25 08/04/24 13:14 Diltiazem In D5w 125 Mg IV 09/03/24 10:24 5 mg/hr .Q24H NANDO 5 mls/hr Administration 5 MG/HR Levalbuterol HCl 0.63 mg 08/03/24 18:16 Levalbuterol Rt 0.63 Mg/3 Ml Nebu INH 09/02/24 18:15 Q8HRRT PRN SHORTNESS OF BREATH OR WHEEZE Ondansetron HCl 4 mg 08/03/24 17:25 Ondansetron Inj 2 Mg/Ml Inj 2 Ml IV 09/02/24 17:24 Q6H PRN NAUSEA OR VOMITING Protocol Plan Mr. Gan is a 64-year-old male with no past medical history presented to the ED complaining of shortness of breath and cough for the past 4 days for which he went to a clinic and was prescribed antibiotics patient states he took the antibiotics twice yesterday and once this morning without relief and continued to have worsening cough and noticed streaks of blood in his sputum. Pt is admitted to the hospital for further management of community acquired pneumonia. #Sepsis 2/2 #Community acquired pneumonia #Cocci pneumonia #Hemoptysis - resolved -Pt is complaining of SOB, cough for 4 days, he noticed streaks of blood today in his sputum -Pt meets sepsis criteria with SIRS 2/4 tachycardia, and fever plus end organ damage, evidence of CHRIS -Lactic acid 1.4, procalcitonin 0.26 -In the ED pt receiced rocephin 1gm and 1L bolus fluid -CXR- Bilateral pneumonia, significant in the right lung -Cocci IgM positive Plan: -Blood and sputum cultured ordered -Supplemental oxygen PRN -IV fluids ordered -Cocci IgM positive, RSV negative TB PPD skin test ordered -Influenza and covid negative -Rocephin and azithromycin started 08/03- -Flucanazole 400mg daily ordered 07/04- -ID consult placed #A-fib with RVR, new onset -Overnight on 08/04 pt developed a-fib with RVR with HR above 140's -EKG is evident pf afib wit RVR with rate of 125 -Pt is given dose of diltiazam PO overnight -CHADs-VAS score 1 plan: -Diltiazam drip started -Echo ordered -will consider cardip consult if pt continues to be in afib despite diltiazam drip #Acute Kidney injury - resolved -On admission Cr 1.2 and baseline 1.0, likely secondary to decreased oral intake -IV fluids given -Will continue to monitor daily CMP -Avoid nephrotoxic and renally dose medications #Transiminitis #Hyerbillirubinemia -On Admission Total billirubin 1.7 and AST 81 and ALT 59 -Pt denies alcohol use or RUQ pain -Liver US - showed pancreatic head priminent 3.7cm -CT of abdomen/Pelvis did not show pancreatic mass or peripancreatic edema -will continue to monitor daily labs Health Maintenance Disposition: telemetry for diltiazam drip DVT Prophylaxis: Heparin 5000 units SC Q8 hrs GI Prophylaxis: not indicated Diet: Cardiac Diet Lines: Peripheral lines Code status: Full Assessment and plan discussed with my senior resident Dr. Wilkinson & attending physician Dr. Reina Moody (PGY-1)- Internal medicine resident Attending Provider Attestation/Addendum I attest that I was physically present for the evaluation, physical examination, lab and imaging review of the patient with the residents. I discussed the case with the residents and agree with the findings and plans of care as documented above. At bedside today, patient states he is feeling well and does not have new complaints.? He continues to have some cough, shortness of breath improved.? Was saturating well on room air.? LFTs noted to be improving.? Overnight, patient went into A-fib with RVR, received IV diltiazem with conversion back to sinus rhythm.? This morning, he again started having A-fib with RVR, we will start him on diltiazem drip.? Liver ultrasound yesterday showed enlarged pancreatic head at 3.7 cm, we will obtain CT abdomen/pelvis with contrast as recommended.? Blood pressure noted to be high at 164/96 this morning, we will monitor his blood pressure closely since he is started on diltiazem drip. Amanda Huang MD
[2024-08-04 13:44] LABS: Cocid Sro, CF/ID (UCD) NO CHG* See Sep Rpt
[2024-08-04 13:44] LABS: Cocci Serology, IgM Positive (Negative)
[2024-08-04] MEDS: FLUCONAZOLE 100 MG TABLET 400 MG PO (15:16)
--- NOTE | 2024-08-04 16:40 | ESPR_ITS ---
Subjective Subjective Interval history: pos cocci but recent rx initiation at the [address] [place] [address]. Exam Vital Signs Temp Pulse Resp BP Pulse Ox O2 Del Method O2 Flow Rate 97.2 F 119 H 20 135/96 H 97 Nasal Cannula 4 08/04/24 12:00 08/04/24 16:01 08/04/24 16:01 08/04/24 13:14 08/04/24 12:00 08/04/24 12:00 08/04/24 16:01 Narrative Exam on O2 but not distressed. Objective - Internal Medicine Labs 08/04/24 05:28 08/04/24 05:28 Labs: Laboratory Results - last 24 hr 08/03/24 08/03/24 08/03/24 13:33 18:28 21:10 WBC RBC Hgb Hct MCV MCH MCHC RDW Std Deviation Plt Count Neut % (Auto) Lymph % (Auto) [place] % (Auto) Eos % (Auto) Baso % (Auto) Neut # (Auto) Lymph # (Auto) [place] # (Auto) Eos # (Auto) Baso # (Auto) Immature Gran # (Auto) Absolute Nucleated RBC Immature Gran % Nucleated RBC % Sodium Potassium Chloride Carbon Dioxide Anion Gap BUN Creatinine Estim Creat Clear Calc eGFR BUN/Creatinine Ratio Glucose Estimated Ave Glu mg/dL Hemoglobin A1c Calculated Osmolality Lactic Acid 1.0 Calcium Corrected Calcium Phosphorus Magnesium 2.1 Total Bilirubin AST ALT Alkaline Phosphatase Total Protein Albumin Globulin Albumin/Globulin Ratio Triglycerides Cholesterol LDL Cholesterol, Calc HDL Cholesterol Cholesterol/HDL Ratio TSH Coccidioides IgM Ab Positive A RSV Rapid Negative 08/04/24 05:28 WBC 6.5 RBC 4.83 Hgb 15.1 Hct 43.1 MCV 89 MCH 31.3 MCHC 35.0 RDW Std Deviation 39.7 Plt Count 126 L Neut % (Auto) 60 Lymph % (Auto) 32 [place] % (Auto) 7 Eos % (Auto) 0 Baso % (Auto) 0 Neut # (Auto) 3.9 Lymph # (Auto) 2.1 [place] # (Auto) 0.5 Eos # (Auto) 0.0 Baso # (Auto) 0.0 Immature Gran # (Auto) 0.04 H Absolute Nucleated RBC 0.00 Immature Gran % 1 H Nucleated RBC % 0 Sodium 136 Potassium 4.2 Chloride 103 Carbon Dioxide 21.9 Anion Gap 11 BUN 13 Creatinine 0.9 Estim Creat Clear Calc 93.4 eGFR > 60 BUN/Creatinine Ratio [address] Glu mg/dL 120 Hemoglobin A1c 5.8 Calculated Osmolality 272 L Lactic Acid Calcium 7.9 L Corrected Calcium 8.2 L Phosphorus 2.8 Magnesium 2.6 Total Bilirubin 0.8 D AST 65 H ALT 51 H Alkaline Phosphatase 45 L Total Protein 6.5 Albumin 3.6 D Globulin 2.9 Albumin/Globulin Ratio 1.2 Triglycerides 96 Cholesterol 82 L LDL Cholesterol, Calc 49 HDL Cholesterol 14 L Cholesterol/HDL Ratio 5.9 TSH 0.81 Coccidioides IgM Ab RSV Rapid Assessment & Plan A&P Narrative 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 but if O2 need static or improved then stay with the flucon 400 will check procal in am and may move to all po by friday if that is neg Time Spent With Patient Time: Total time spent is greater than 50% in coordination of care (as documented) at patient's floor/unit and/or counseling patient:
--- NOTE | 2024-08-04 19:24 | ESCONSULT_ITS ---
RE: CHANDAN MICHAELS : 1960 DATE OF CONSULTATION: 08/04/2024 REFERRING PHYSICIAN: Dr. Huang. REASON FOR CONSULTATION: Valley fever recently started on treatment versus other pneumonia. HISTORY OF PRESENT ILLNESS: The patient is here for presumptive Valley fever. He was diagnosed recently apparently as an outpatient at the [facility] clinic, but he reports that he did not start treatment until very recently. He may have only started treatment on admission. He has been on azithromycin, Rocephin, and fluconazole. The fluconazole is oral, which is fine. He should probably finish 3 days of azithromycin tomorrow. If his procal is negative, we will probably stop the Rocephin or switch him to oral and stop the azithromycin on Friday. Fluconazole can be continued orally as we do not know its titer and we cannot get a result from [facility]. The patient's chest x-ray is abnormal. He is also on O2 He is on oxygen, but not distressed. Oxygen saturations are in the mid to upper 90s on 4 liters, so he may be less on 2 liters on nothing, but as long as he is above 90%, he may not qualify for home oxygen. The exam is otherwise benign. The patient denies stress. I do not think there is any reason to suspect TB at this time. His Valley fever test is positive as noted. I will check on him again superficially on Friday. DT: 16:44:18 TT: 18:22:00 Ref: [id number] - TID: [id number] [facility]
[2024-08-04] MEDS: AZITHROMYCIN INJ 500 MG in SODIUM CHLORIDE 0.9% 250 ML 250 ML 250 MG IV (20:25)
[2024-08-04] MEDS: SODIUM CHLORIDE 0.9% 1000 ML 1,000 ML 75 ML IV (23:15)
[2024-08-05] VITALS (14 sets, daily range): BP systolic 117–151; BP diastolic 79–99; PULSE 81–111; RESP 13–96; TEMP 36.1–36.6; O2SAT 95–100; BMI 38.3
[2024-08-05] MEDS: HEPARIN SOD INJ 5000 UNIT/ML VIAL SC ×3 (05:07→21:24)
[2024-08-05 05:41] LABS: Basophils % (Auto) 1 % (0-2.5); Eosinophils % (Auto) 0 % (0-10); Hematocrit 42.1 % (41.0-53.0); Hemoglobin 14.5 g/dL (13.5-16.0); Immature Granulocytes % (Auto) 1 % (0-0); Immature Granulocytes Auto 0.04 Thou/mm3 (0.00-0.00); Lymphocytes # (Auto) 3.1 Thou/mm3 (1.0-4.8); Lymphocytes % (Auto) 39 % (10-50); Mean Corpuscular HGB Conc 34.4 g/dl (31.0-37.0); Mean Corpuscular Volume 90 fL (80-100); Monocytes # (Auto) 0.6 Thou/mm3 (0.0-0.8); Monocytes % (Auto) 8 % (0-12); Neutrophils # (Auto) 4.2 Thou/mm3 (1.8-7.7); Neutrophils % (Auto) 52 % (37-80); Nucleated Red Blood Cell % 0 /100 WBC (0); Platelet Count 141 Thou/mm3 (140-440); Red Blood Count 4.67 Miln/mm3 (4.50-5.90)
[2024-08-05 06:21] LABS: Alanine Aminotransferase 52 U/L (10-49); Albumin, Serum 3.6 gm/dL (3.4-4.8); Albumin/Globulin Ratio 1.3 (1.2-2.2); Alkaline Phosphatase 43 U/L (46-116); Anion Gap 7 (7-16); Aspartate Amino Transferase 53 U/L (0-34); BUN/Creatinine Ratio 15 Ratio (12-20); Bilirubin,Total 0.8 mg/dL (0.3-1.2); Blood Urea Nitrogen 12 mg/dL (9-23); Calcium 8.2 mg/dL (8.3-10.6); Calcium (Corrected) 8.5 mg/dL (8.5-10.1); Carbon Dioxide 28.4 mMol/L (20.0-31.0); Chloride 104 mMol/L (98-107); Creatinine (Component) 0.8 mg/dL (0.6-1.3); Estimated Creatinine Clearance 105.1 mL/min (>60); Globulin 2.7 gm/dL (2.3-3.5); Glucose 89 mg/dL (74-106); Osmolality,Calculated 276 (275-295); Phosphorous 2.5 mg/dL (2.4-5.1); Potassium 3.5 mMol/L (3.4-5.1); Procalcitonin 0.15 ng/ml (0.0-0.49); Sodium 139 mMol/L (136-145); Total Protein 6.3 gm/dL (5.7-8.2); eGFR > 60 See Note
[2024-08-05 06:49] LABS: Hepatitis C Antibody Non Reactive (Non React)
[2024-08-05 08:21] LABS: HIV (1&2) Antibody Rapid Non-Reactive
[2024-08-05] MEDS: POTASSIUM CHLORIDE 20 mEq TABCR 40 MEQ PO (08:24)
[2024-08-05] MEDS: FLUCONAZOLE 100 MG TABLET 400 MG PO (08:24)
[2024-08-05] MEDS: cefTRIAXone/D5w 1gm IV premix 1 GM/50 ML BAG IV (08:24)
--- NOTE | 2024-08-05 08:31 | PC.SS ---
SS follow up note; SS contacted financial counselor Chelle in regards to patient obtaining medi-madi, She informed SS that yesterday morning referral was sent to the medical worker, at the time patient is pending call.
[2024-08-05] MEDS: DILTIAZEM in D5W 125 MG 125 MG/125 ML BAG IV (08:36)
--- NOTE | 2024-08-05 10:20 | ESPR_ITS ---
<Statement entered by Uzair Wilkinson MD - 08/06/24 14:20> Senior Resident Attestation: I supervised/discussed management plan with graphic design intern physician Dr. Moody, and was involved in the care of this patient. I personally saw and examined the patient and discussed the assessment and plan with the entire medicine team, including my attending. I agree with the assessment and plan as documented. Patient's care was discussed with attending physician, Dr. Huang. Uzair Wilkinson MD PGY-2. Documentation for date of: 08/05/24 Subjective Subjective Interval history: No acute overnight events reported. Patient seen and examined bedside this morning patient is still in A-fib with RVR with heart rate of 1 10-1 40s. Patient initially saturating 100% on 2 L oxygen and then turned off the oxygen patient continues to saturate at 100% on room air. Patient is notified atthat positive results and TB is negative patient is started on fluconazole and ID is consulted. Echo was done on 07/04 which showed HFrEF with EF of 40% patient is started on GDMT slowly with spironolactone and metoprolol for now and will consult cardio for further management. Patient denies any chest pain pressure or palpitations patient states he feels much better his shortness of breath has resolved he is continues to have a mild cough. Patient has no other complaints, labs are significant for potassium 3.5 and 40 mEq repleted. Blood cultures and sputum culture showed no growth at 24 hours. T. bili has resolved 0.8. Exam Vital Signs Temp Pulse Resp BP Pulse Ox O2 Del Method O2 Flow Rate 97.9 F 97 20 151/98 H 100 Nasal Cannula 2 08/05/24 08:00 08/05/24 08:36 08/05/24 08:00 08/05/24 08:36 08/05/24 08:00 08/05/24 08:00 08/05/24 08:00 Narrative Exam GENERAL: A&Ox3 . elderly obese male, laying in bed, not in acute distress NEURO: no focal neurological deficits noted HEENT: Atraumatic, Normocephalic. mucous membranes moist. Eyes open, symmetrical, & clear HEART: Normal Heart Sounds LUNGS: decreased breath sounds heard bilaterally ABDOMEN: soft, non-distended, non-tender, bowel sounds heard, no guarding or rebound tenderness SKIN: No Rash or ecchymoses EXTREMITIES: No edema, tenderness, able to move all 4 extremities, pedal pulses palpated Objective Labs 08/06/24 05:26 08/06/24 05:26 Labs: Laboratory Results - last 24 hr 08/03/24 08/05/24 13:33 04:10 WBC 8.0 RBC 4.67 Hgb 14.5 Hct 42.1 MCV 90 MCH 31.0 MCHC 34.4 RDW Std Deviation 41.0 Plt Count 141 Neut % (Auto) 52 Lymph % (Auto) 39 [place] % (Auto) 8 Eos % (Auto) 0 Baso % (Auto) 1 Neut # (Auto) 4.2 Lymph # (Auto) 3.1 [place] # (Auto) 0.6 Eos # (Auto) 0.0 Baso # (Auto) 0.0 Immature Gran # (Auto) 0.04 H Absolute Nucleated RBC 0.00 Immature Gran % 1 H Nucleated RBC % 0 Sodium 139 Potassium 3.5 D Chloride 104 Carbon Dioxide 28.4 Anion Gap 7 BUN 12 Creatinine 0.8 Estim Creat Clear Calc 105.1 eGFR > 60 BUN/Creatinine Ratio 15 Glucose 89 Calculated Osmolality 276 Calcium 8.2 L Corrected Calcium 8.5 Phosphorus 2.5 Magnesium 2.0 Total Bilirubin 0.8 AST 53 H ALT 52 H Alkaline Phosphatase 43 L Total Protein 6.3 Albumin 3.6 Globulin 2.7 Albumin/Globulin Ratio 1.3 Procalcitonin 0.15 Coccidioides IgM Ab Positive A Hepatitis C Antibody Non Reactive HIV 1&2 Antibody Rapid Non-Reactive Quality Measures Quality Measures sepsis Current suspected stage: sepsis (resolved) Possible source: pulmonary Blood cultures ordered: yes Antibiotic ordered: Yes Assessment & Plan Assessment Current Active Medications: Generic Name Dose Route Start Last Admin Trade Name Freq PRN Reason Stop Dose Admin Acetaminophen 650 mg 08/03/24 17:25 Acetaminophen 325 Mg Tablet PO 09/02/24 17:24 Q6H PRN Fever >100.3, PAIN RATED 1-3 Fluconazole 400 mg 08/04/24 15:00 08/05/24 08:24 Fluconazole 100 Mg Tablet PO 08/11/24 14:59 400 mg QDAY NANDO Administration Heparin Sodium (Porcine) 5,000 unit 08/03/24 22:00 08/05/24 05:07 Heparin Sod Inj 5000 Unit/Ml Vial SC 08/17/24 21:59 5,000 unit Q8HR NANDO Administration Azithromycin 500 mg/ Sodium 250 mls @ 250 mls/hr 08/03/24 19:45 08/04/24 22:17 Chloride IV 08/10/24 19:44 Infused QDAY@2100 NANDO Infusion Ceftriaxone Sodium/Dextrose 1 gm in 50 mls @ 100 mls/hr 08/03/24 17:34 08/05/24 08:24 Rocephin/D5w 1gm Iv Premix IV 08/10/24 17:33 100 mls/hr QDAY NANDO Administration Diltiazem HCl 125 mg in 125 mls @ 5 mls/hr 08/04/24 10:25 08/05/24 08:36 Diltiazem In D5w 125 Mg IV 09/03/24 10:24 5 mg/hr .Q24H NANDO 5 mls/hr Administration 5 MG/HR Sodium Chloride 1,000 mls @ 75 mls/hr 08/04/24 22:40 08/04/24 23:15 Ns IV 09/03/24 22:39 75 mls/hr .[id number] NANDO Administration Levalbuterol HCl 0.63 mg 08/03/24 18:16 Levalbuterol Rt 0.63 Mg/3 Ml Nebu INH 09/02/24 18:15 Q8HRRT PRN SHORTNESS OF BREATH OR WHEEZE Metoprolol Succinate 25 mg 08/05/24 10:30 Metoprolol Succinate Xl 25 Mg Tabcr PO 09/04/24 10:29 QDAY NANDO Ondansetron HCl 4 mg 08/03/24 17:25 Ondansetron Inj 2 Mg/Ml Inj 2 Ml IV 09/02/24 17:24 Q6H PRN NAUSEA OR VOMITING Protocol Plan Mr. Gan is a 64-year-old male with no past medical history presented to the ED complaining of shortness of breath and cough for the past 4 days for which he went to a clinic and was prescribed antibiotics patient states he took the antibiotics twice yesterday and once this morning without relief and continued to have worsening cough and noticed streaks of blood in his sputum. Pt is admitted to the hospital for further management of community acquired pneumonia. #A-fib with RVR, new onset #HFrEF, EF 40% -Overnight on 08/04 pt developed a-fib with RVR with HR above 140's -EKG is evident pf afib wit RVR with rate of 125 -Pt is given dose of diltiazam PO overnight -CHADs-VAS score 1, at this time will defer anticoagulation -Echo done on 08/04: Normal size LV with MIld global hypokinesis LVEF 40% Normal RV size and fucntion RVSP mildly elevated 45 mmHg LA is moderatley dilated Mild MAC with moderate 2+ miotral regurgitation Mild tricuspid regurgitation AOV scelerosis with mild aortic regurgitation plan: -Diltiazam drip started, will eventually transition to PO diltiazam -will consider cardip consult if pt continues to be in afib despite diltiazam drip -Metoprolol succinate 25mg daily added -Will slowly start GDMT, will continue to monitor BP and add medications as tolerated. Currently started metoprolol and spironolactone -Consulted Cardio, appreciate recommendations #Sepsis 2/2- resolved #Community acquired pneumonia #Cocci pneumonia #Hemoptysis - resolved -Pt is complaining of SOB, cough for 4 days, he noticed streaks of blood today in his sputum -Pt meets sepsis criteria with SIRS 2/4 tachycardia, and fever plus end organ damage, evidence of CHRIS -Lactic acid 1.4, procalcitonin 0.26 -In the ED pt received rocephin 1gm and 1L bolus fluid -CXR- Bilateral pneumonia, significant in the right lung -Cocci IgM positive Plan: -Blood and sputum cultured ordered -Supplemental oxygen PRN -IV fluids ordered -Cocci IgM positive, RSV negative TB PPD skin test ordered -Influenza and covid negative -Rocephin and azithromycin started 08/03- -Flucanazole 400mg daily ordered 07/04- -ID consult placed #Acute Kidney injury - resolved -On admission Cr 1.2 and baseline 1.0, likely secondary to decreased oral intake -IV fluids given -Will continue to monitor daily CMP -Avoid nephrotoxic and renally dose medications #Transiminitis - improving #Hyerbillirubinemia - resolved -On Admission Total billirubin 1.7 and AST 81 and ALT 59 -Pt denies alcohol use or RUQ pain -Liver US - showed pancreatic head priminent 3.7cm -CT of abdomen/Pelvis did not show pancreatic mass or peripancreatic edema -will continue to monitor daily labs Health Maintenance Disposition: telemetry for diltiazam drip DVT Prophylaxis: Heparin 5000 units SC Q8 hrs GI Prophylaxis: not indicated Diet: Cardiac Diet Lines: Peripheral lines Code status: Full Assessment and plan discussed with my senior resident Dr. Wilkinson & attending physician Dr. Reina Moody (PGY-1)- Internal medicine resident Attending Provider Attestation/Addendum I attest that I was physically present for the evaluation, physical examination, lab and imaging review of the patient with the residents. I discussed the case with the residents and agree with the findings and plans of care as documented above. At bedside today, patient states he is feeling better compared to yesterday.? Denies any new complaints.? His PPD test has been negative for more than 48 hours, we will discontinue his isolation.? 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 Infectious disease following, appreciate recommendations.? Patient's heart rate continues to be difficult to control, he continues to be on diltiazem drip, added metoprolol 25 daily.? Still in A-fib with RVR at bedside, heart rate going up to 110s.? Blood pressure has been on higher range as well, 148/79 this afternoon.? Patient found to have ejection fraction of 40% on echocardiography.? Stopped IV hydration, added spironolactone as goal-directed medical therapy.? We will also obtain cardiology consult. Amanda Huang MD
[2024-08-05] MEDS: SPIRONOLACTONE 25 MG TABLET 12.5 MG PO ×2 (11:12→20:38)
[2024-08-05] MEDS: METOPROLOL SUCCINATE XL 25 MG TABCR PO (11:13)
--- NOTE | 2024-08-05 16:37 | ESCONSULT_ITS ---
<Statement entered by Marcial Rees MD - 08/07/24 19:50> I personally evaluated the patient examined the patient appears to be atrial fibrillation moderate rapid ventricular sponsor continue beta-pema IV followed by oral beta-pema metoprolol increase the doses as tolerated. I evaluated the patient with PGY 2 Dr. Denisha Daniels agree with the treatment plan recommendation will continue to follow the patient. HPI Data of Consult Requesting Physician: Amanda Huang MD Admitting Provider: Amanda Huang MD Attending Provider: Amanda Huang MD Primary Care Provider: Physician No Primary/Family Consult Narrative Reason for consult: New onset afib and new onset CHF with reduced EF History of present illness: Patient is a 64-year-old Cymraes-speaking male with no past medical history who presented to the ED on 08/03/2024 with 4 days of shortness of breath, cough, and blood-tinged sputum. Interpretation completed using [employer] telephone events intern. He had seen an outpatient clinic for these symptoms and was prescribed 2 antibiotics but felt no relief after taking them so came to the hospital. CXR findings showed diffuse significant bilateral pneumonia and patient was found to have fever 101.8 and tachycardia. Patient was subsequently admitted for sepsis secondary to community acquired pneumonia and was diagnosed with pulmonary coccidioidomycosis with a positive IgM. He works various seasonal jobs in physical labor. Patient went into afib on the night of admission with HR up to the 120-140s range. Patient was subsequently started on diltiazem drip at 5 mg/hr. Cardiology was consulted due to persistent afib and new onset CHF as found on echo with EF of 40%. Patient does endorse episodes of chest pain described as pressure-like which occur during times of physical activity and typically last around 15 minutes and resolve with rest. He states these episodes have happened only occasionally, once every 1-2 months. Patient does endorse feelings of palpitations over the last 1 month. Patient otherwise denies any orthopnea, lower extremity swelling, or shortness of breath on exertion other than in the recent few days due to the pneumonia. He currently denies chest pain on this admission. Patient denies any prior cardiac history, history of cardiac arrhythmias, and denies taking any home medications for any reason. Review of Systems Review of systems otherwise negative except what is mentioned above. cc:: cc: Amanda Huang MD Past Medical History Past Medical History Comments PMH COMMENT: Past Medical History: No known past medical history Family History: No first-degrees relatives with history of cardiac disease. Mother - alive. Father - , ESRD and diabetic. No other known first- degree relatives with diabetes. Surgical History: Appendectomy in 1982 Social History: Denies history of smoking, occasional social alcohol use last drink 2 months ago, denies recreational drug use Current Medications: No home medications Allergies: No known drug allergies Exam Vital Signs Temp Pulse Resp BP Pulse Ox O2 Del Method O2 Flow Rate 96.9 F 85 13 148/79 H 96 Room Air 2 08/05/24 11:41 08/05/24 15:58 08/05/24 11:41 08/05/24 11:41 08/05/24 11:41 08/05/24 11:41 08/05/24 08:00 Narrative Exam Physical Exam General: Awake and in no acute distress. Conversational and non-toxic appearing. HEENT: Normocephalic, atraumatic, mucous membranes moist. Heart: Regular rate and rhythm, normal S1 and S2, no murmurs. Lungs: Mild wheezing bilaterally. Abdomen: Soft, obese, nondistended, nontender, positive bowel sounds. ?No guarding or rebound tenderness. Neurologic: Alert and oriented x3, no gross neurological deficit, and patient able to move all 4 extremities. Extremities: No edema. Skin: No rash or ecchymoses. Results Labs 08/05/24 04:10 08/05/24 04:10 Labs: Short CBC 08/05/24 Range/Units 04:10 WBC 8.0 (3.8-10.6) Thou/mm3 Hgb 14.5 (13.5-16.0) g/dL Hct 42.1 (41.0-53.0) % Plt Count 141 (140-440) Thou/mm3 BMP 08/05/24 04:10 Sodium 139 Potassium 3.5 D Chloride 104 Carbon Dioxide 28.4 BUN 12 Creatinine 0.8 Glucose 89 Calcium 8.2 L Liver Function 08/05/24 Range/Units 04:10 Total Bilirubin 0.8 (0.3-1.2) mg/dL AST 53 H (0-34) U/L ALT 52 H (10-49) U/L Alkaline Phosphatase 43 L (46-116) U/L Albumin 3.6 (3.4-4.8) gm/dL Quality Measures Quality Measures sepsis Current suspected stage: sepsis Possible source: pulmonary Blood cultures ordered: yes Antibiotic ordered: Yes Medications Home Medications and Allergies Home Medications ?Medication ?Instructions ?Recorded ?Confirmed ?Type azithromycin 250 mg tablet See Rx Instructions PO .COM PLEX 08/04/24 08/04/24 History (Zithromax) lisinopril 10 mg tablet 10 mg PO QDAY 08/04/2408/04 History Allergies Allergy/AdvReac Type Severity Reaction Status Date / Time No Known Allergies Allergy Verified 08/03/24 11:56 Visit Medications Acetaminophen (Acetaminophen 325 Mg Tablet) 650 mg PO Q6H PRN PRN Reason: Fever >100.3, PAIN RATED 1-3 Stop: 09/02/24 17:24 Azithromycin (Azithromycin 250 Mg Tablet) [address] [facility] Stop: 08/10/24 19:44 Fluconazole (Fluconazole 100 Mg Tablet) [address] [facility] Stop: 08/11/24 14:59 Last Admin: 08/05/24 08:24 Dose: 400 mg Heparin Sodium (Porcine) (Heparin Sod Inj 5000 Unit/Ml Vial) 5,000 unit SC Q8HR NANDO Stop: 08/17/24 21:59 Last Admin: 08/05/24 14:21 Dose: 5,000 unit Azithromycin 500 mg/ Sodium (Chloride) 250 mls @ 250 mls/hr IV QDAY@2100 [facility] Stop: 08/06/24 09:00 Last Infusion: 08/04/24 22:17 Dose: Infused Ceftriaxone Sodium/Dextrose (Rocephin/D5w 1gm Iv Premix) 1 gm in 50 mls @ 100 mls/hr IV QDAY NANDO Stop: 08/10/24 17:33 Last Admin: 08/05/24 08:24 Dose: 100 mls/hr Diltiazem HCl (Diltiazem In D5w 125 Mg) 125 mg in 125 mls @ 5 mls/hr IV .Q24H NANDO Stop: 09/03/24 10:24 Last Admin: 08/05/24 08:36 Dose: 5 mg/hr, 5 mls/hr Levalbuterol HCl (Levalbuterol Rt 0.63 Mg/3 Ml Nebu) 0.63 mg INH Q8HRRT PRN PRN Reason: SHORTNESS OF BREATH OR WHEEZE Stop: 09/02/24 18:15 Metoprolol Succinate (Metoprolol Succinate Xl 25 Mg Tabcr) [address] [facility] Stop: 09/04/24 10:29 Last Admin: 08/05/24 11:13 Dose: 25 mg Ondansetron HCl (Ondansetron Inj 2 Mg/Ml Inj 2 Ml) 4 mg IV Q6H PRN; Protocol PRN Reason: NAUSEA OR VOMITING Stop: 09/02/24 17:24 Spironolactone (Spironolactone 25 Mg Tablet) 12.[address] [facility] Stop: 09/04/24 10:29 Last Admin: 08/05/24 11:12 Dose: 12.5 mg Discontinued Medications Acetaminophen (Acetaminophen 500 Mg Tablet) 1,000 mg PO X1 ONE Stop: 08/03/24 12:29 Last Admin: 08/03/24 13:31 Dose: 1,000 mg Amlodipine Besylate (Amlodipine Besylate 5 Mg Tablet) 5 mg PO X1 ONE Stop: 08/04/24 00:16 Last Admin: 08/04/24 00:48 Dose: 5 mg Diltiazem HCl (Diltiazem Inj 5 Mg/Ml Vial 5 Ml) 15 mg IV X1 ONE Stop: 08/03/24 21:05 Last Admin: 08/03/24 21:36 Dose: 15 mg Diltiazem HCl (Diltiazem Inj 5 Mg/Ml Vial 5 Ml) 15 mg IV X1 ONE Stop: 08/03/24 23:58 Last Admin: 08/04/24 00:13 Dose: Not Given Ceftriaxone Sodium/Dextrose (Rocephin/D5w 1gm Iv Premix) 1 gm in 50 mls @ 100 mls/hr IV X1 ONE Stop: 08/03/24 16:51 Last Infusion: 08/03/24 17:23 Dose: Infused Sodium Chloride (Ns) 1,000 mls @ 999 mls/hr IV .Q1H1M ONE Stop: 08/03/24 17:22 Last Infusion: 08/03/24 18:36 Dose: Infused Sodium Chloride (Ns) 1,000 mls @ 999 mls/hr IV .Q1H1M ONE Stop: 08/03/24 18:31 Last Admin: 08/03/24 18:40 Dose: 999 mls/hr Sodium Chloride (Ns) 500 mls @ 125 mls/hr IV .Q4H [facility] Stop: 09/02/24 18:29 Last Admin: 08/03/24 19:30 Dose: Not Given Sodium Chloride (Ns) 1,000 mls @ 125 mls/hr IV .Q8H [facility] Stop: 09/02/24 20:29 Last Infusion: 08/05/24 06:32 Dose: Infused Magnesium Sulfate (Magnesium Sulfate Ivpb) 4 gm in 50 mls @ 12.5 mls/hr IV X1 ONE Stop: 08/04/24 00:49 Last Infusion: 08/04/24 19:20 Dose: Infused Sodium Chloride (Ns) 500 mls @ 999 mls/hr IV .Q31M ONE Stop: 08/03/24 21:45 Last Infusion: 08/04/24 19:20 Dose: Infused Sodium Chloride (Ns) 1,000 mls @ 75 mls/hr IV .[id number] [facility] Stop: 09/03/24 22:39 Last Admin: 08/04/24 23:15 Dose: 75 mls/hr Potassium Chloride (Potassium Chloride 20 Meq Tabcr) 20 meq PO X1 ONE Stop: 08/03/24 20:51 Last Admin: 08/03/24 21:10 Dose: 20 meq Potassium Chloride (Potassium Chloride 20 Meq Tabcr) 40 meq PO X1 ONE Stop: 08/05/24 08:06 Last Admin: 08/05/24 08:24 Dose: 40 meq Sodium Chloride (Sodium Chloride Rt 10% 15 Ml Nebu) 5 ml INH X1 ONE Stop: 08/03/24 17:26 Tuberculin PPD (Tuberculin Ppd Inj 5 Unit/0.1 Ml Dose) 5 unit ID X1 ONE Stop: 08/03/24 17:31 Last Admin: 08/03/24 21:04 Dose: 5 unit Assessment & Plan Plan 64-year-old male with no past medical history who presented to the ED on 08/03/2024 with 4 days of shortness of breath, cough, and blood-tinged sputum. Patient was subsequently admitted for sepsis secondary to community acquired pneumonia and was diagnosed with pulmonary coccidioidomycosis with a positive IgM. Cardiology was consulted due to persistent afib and new onset CHF as found on echo with EF of 40%. #Persistent versus paroxsymal afib with RvR Patient was tachycardic on admission and on the same night rapid was called for afib with RvR. EKG at that time showed afib at a rate of 125. Patient denies known history of diagnosed afib. [id number] score is 2 stroke risk 2.2% per year given +hypertension and +CHF as found on this admission. Anticoagulation may be recommended. -Stop diltiazem drip -Start metoprolol succinate 50 mg qday, uptitrate if needed to achieve rate control -Treat underlying sepsis -Keep K >4.0 and Mag >2.0 #New diagnosis of CHF with reduced EF 40%, not currently in exacerbation #Angina-type chest pain #Likely tachycardia-induced cardiomyopathy 08/04/2024 Echo showed normal size LV with mild global hypokinesis LVEF 40%, normal RV size and function, RVSP mildly elevated 45 mmHg, LA is moderately dilated, mild MAC with moderate 2+ mitral regurgitation, mild tricuspid regurgitation, AOV sclerosis with mild aortic regurgitation. Patient denies any known cardiac history. Patient does endorse episodes of anginal-like chest pain lasting 15 minutes with physical activity that improves upon rest, this happens every once in a couple months. Patient denies any chest pain this admission, denies orthopnea, denies any leg edema. Does not appear to be in acute heart failure exacerbation at this time. Patient denies drug use or any significant alcohol use. Suspecting tachycardia-induced cardiomyopathy. Ischemic heart disease also cannot be ruled out and patient likely would benefit from outpatient cardiac workup. -Continue metoprolol succinate 50 mg qday -Will obtain a BNP for baseline -Outpatient cardiac stress testing after sepsis is treated #Essential hypertension Patient had BP ranging in the 140-150 systolic and the 80-90s diastolic range since admission, likely has some underlying hypertension, patient not previously on meds. -Continue with beta-pema for now as BP tolerates -Add antihypertensive agent HIRAM or ARB if BP still elevated Rest of conditions to continue current management per primary team: #Sepsis #Community acquired pneumonia #Pulmonary coccidioidomycosis #Acute kidney injury #Elevated AST and ALT #Elevated alkaline phosphatase Patient was discussed with the Cardiology attending, Dr. Rees. Thank you for allowing us to participate in the care of this patient. Natasha Dc, PGY-2
[2024-08-05] MEDS: AZITHROMYCIN INJ 500 MG in SODIUM CHLORIDE 0.9% 250 ML 250 ML 250 MG IV (20:38)
[2024-08-06] VITALS (13 sets, daily range): BP systolic 139–160; BP diastolic 92–118; PULSE 85–161; RESP 14–100; TEMP 36.1–36.9; O2SAT 98–100
[2024-08-06] MEDS: HEPARIN SOD INJ 5000 UNIT/ML VIAL SC (05:10)
[2024-08-06 05:55] LABS: Basophils % (Auto) 1 % (0-2.5); Eosinophils # (Auto) 0.1 Thou/mm3 (0.0-0.5); Eosinophils % (Auto) 1 % (0-10); Hematocrit 43.6 % (41.0-53.0); Hemoglobin 15.3 g/dL (13.5-16.0); Immature Granulocytes % (Auto) 1 % (0-0); Immature Granulocytes Auto 0.04 Thou/mm3 (0.00-0.00); Lymphocytes # (Auto) 2.7 Thou/mm3 (1.0-4.8); Lymphocytes % (Auto) 35 % (10-50); Mean Corpuscular HGB Conc 35.1 g/dl (31.0-37.0); Mean Corpuscular Hemoglobin 31.2 pg (25.0-35.0); Mean Corpuscular Volume 89 fL (80-100); Monocytes # (Auto) 0.6 Thou/mm3 (0.0-0.8); Monocytes % (Auto) 8 % (0-12); Neutrophils # (Auto) 4.1 Thou/mm3 (1.8-7.7); Neutrophils % (Auto) 55 % (37-80); Nucleated Red Blood Cell % 0 /100 WBC (0); Platelet Count 164 Thou/mm3 (140-440); Red Blood Count 4.91 Miln/mm3 (4.50-5.90); White Blood Count 7.6 Thou/mm3 (3.8-10.6)
[2024-08-06 06:13] LABS: B-Type Natriuretic Peptide 298 pg/mL (0-100)
[2024-08-06 06:18] LABS: Alanine Aminotransferase 58 U/L (10-49); Albumin, Serum 3.9 gm/dL (3.4-4.8); Albumin/Globulin Ratio 1.3 (1.2-2.2); Alkaline Phosphatase 47 U/L (46-116); Anion Gap 9 (7-16); Aspartate Amino Transferase 49 U/L (0-34); BUN/Creatinine Ratio 13 Ratio (12-20); Bilirubin,Total 1.5 mg/dL (0.3-1.2); Blood Urea Nitrogen 9 mg/dL (9-23); Calcium (Corrected) 9.1 mg/dL (8.5-10.1); Carbon Dioxide 24.6 mMol/L (20.0-31.0); Chloride 105 mMol/L (98-107); Creatinine (Component) 0.7 mg/dL (0.6-1.3); Glucose 96 mg/dL (74-106); Osmolality,Calculated 276 (275-295); Phosphorous 2.9 mg/dL (2.4-5.1); Potassium 3.6 mMol/L (3.4-5.1); Sodium 139 mMol/L (136-145); Total Protein 6.9 gm/dL (5.7-8.2); eGFR > 60 See Note
[2024-08-06] MEDS: FLUCONAZOLE 100 MG TABLET 400 MG PO (08:21)
[2024-08-06] MEDS: METOPROLOL SUCCINATE XL 25 MG TABCR 50 MG PO ×2 (08:21→20:17)
[2024-08-06] MEDS: SPIRONOLACTONE 25 MG TABLET 12.5 MG PO ×2 (08:22→20:17)
[2024-08-06] MEDS: cefTRIAXone/D5w 1gm IV premix 1 GM/50 ML BAG IV (08:23)
[2024-08-06] MEDS: POTASSIUM CHLORIDE 20 mEq TABCR 40 MEQ PO (08:24)
--- NOTE | 2024-08-06 09:16 | ESPR_ITS ---
Subjective Subjective Interval history: called [facility]. they do not have a specimen. will re order as precaution. no hiv test noted. no hep c. Exam Vital Signs Temp Pulse Resp BP Pulse Ox O2 Del Method O2 Flow Rate 97.3 F 119 H 18 160/105 H 100 Room Air 2 08/06/24 08:00 08/06/24 08:22 08/06/24 08:00 08/06/24 08:22 08/06/24 08:00 08/06/24 08:00 08/05/24 16:00 Narrative Exam limited eval Objective - Internal Medicine Labs 08/06/24 05:26 08/06/24 05:26 Labs: Laboratory Results - last 24 hr 08/06/24 05:26 WBC 7.6 RBC 4.91 Hgb 15.3 Hct 43.6 MCV 89 MCH 31.2 MCHC 35.1 RDW Std Deviation 40.0 Plt Count 164 Neut % (Auto) 55 Lymph % (Auto) 35 [place] % (Auto) 8 Eos % (Auto) 1 Baso % (Auto) 1 Neut # (Auto) 4.1 Lymph # (Auto) 2.7 [place] # (Auto) 0.6 Eos # (Auto) 0.1 Baso # (Auto) 0.0 Immature Gran # (Auto) 0.04 H Absolute Nucleated RBC 0.00 Immature Gran % 1 H Nucleated RBC % 0 Sodium 139 Potassium 3.6 Chloride 105 Carbon Dioxide 24.6 Anion Gap 9 BUN 9 Creatinine 0.7 Estim Creat Clear Calc 118.0 eGFR > 60 BUN/Creatinine Ratio 13 Glucose 96 Calculated Osmolality 276 Calcium 9.0 Corrected Calcium 9.1 Phosphorus 2.9 Magnesium 2.0 Total Bilirubin 1.5 H D AST 49 H ALT 58 H Alkaline Phosphatase 47 B-Natriuretic Peptide 298 H Total Protein 6.9 Albumin 3.9 Globulin 3.0 Albumin/Globulin Ratio 1.3 Assessment & Plan A&P Narrative probable [place] fever, off O2 now. pneumonia , procal neg. stay with the flucon 400/day moved to [facility] po home at your discretion I can see in clinic but a copy of the cxr and cocci at [facility] are needed as well as a referral from outpt primary. Time Spent With Patient Time: Total time spent is greater than 50% in coordination of care (as documented) at patient's floor/unit and/or counseling patient:
--- NOTE | 2024-08-06 09:45 | ESPR_ITS ---
<Statement entered by Uzair Wilkinson MD - 08/07/24 09:38> Senior Resident Attestation: I supervised/discussed management plan with pharmacy graduate intern physician Dr. Moody, and was involved in the care of this patient. I personally saw and examined the patient and discussed the assessment and plan with the entire medicine team, including my attending. I agree with the assessment and plan as documented. Patient's care was discussed with attending physician, Dr. Huang. Uzair Wilkinson MD PGY-2. Documentation for date of: 08/06/24 Subjective Subjective Interval history: No acute overnight events reported. Pt is seen and examined at bedside this morning. Saturating on room air. Telemetry is review, Pt continues to be in a- fib with HR range 100-140's. Although pt denies any chest pain, palpitation, SOB or pressure. Pt is saturating on room air, continues to have a cough and wheezing. Pt has remained afebrile. Per cardiology recommendation patient is off of diltiazem drip and will titrate metoprolol as his blood pressure is tolerating. Patient is also started on Entresto with a half a tablet and will continue spironolactone as part of GDMT. Patient is explained that he will need to follow-up with outpatient cardiology for further workup. Currently patient has no other complaints. Significant labs passing 3.6 and 40 mEq is repleted, BNP is 298 and T. bili is and will continue to monitor with daily labs. Exam Vital Signs Temp Pulse Resp BP Pulse Ox O2 Del Method O2 Flow Rate 97.3 F 119 H 18 160/105 H 100 Room Air 2 08/06/24 08:00 08/06/24 08:22 08/06/24 08:00 08/06/24 08:22 08/06/24 08:00 08/06/24 08:00 08/05/24 16:00 Narrative Exam GENERAL: A&Ox3 . elderly obese male, laying in bed, saturating on room air, not in acute distress NEURO: no focal neurological deficits noted HEENT: Atraumatic, Normocephalic. mucous membranes moist. Eyes open, symmetrical, & clear HEART: Normal Heart Sounds LUNGS: wheezing heard bilaterally ABDOMEN: soft, non-distended, non-tender, bowel sounds heard, no guarding or rebound tenderness SKIN: No Rash or ecchymoses EXTREMITIES: No edema, tenderness, able to move all 4 extremities, pedal pulses palpated Objective Labs 08/06/24 05:26 08/07/24 06:45 Labs: Laboratory Results - last 24 hr 08/06/24 05:26 WBC 7.6 RBC 4.91 Hgb 15.3 Hct 43.6 MCV 89 MCH 31.2 MCHC 35.1 RDW Std Deviation 40.0 Plt Count 164 Neut % (Auto) 55 Lymph % (Auto) 35 [place] % (Auto) 8 Eos % (Auto) 1 Baso % (Auto) 1 Neut # (Auto) 4.1 Lymph # (Auto) 2.7 [place] # (Auto) 0.6 Eos # (Auto) 0.1 Baso # (Auto) 0.0 Immature Gran # (Auto) 0.04 H Absolute Nucleated RBC 0.00 Immature Gran % 1 H Nucleated RBC % 0 Sodium 139 Potassium 3.6 Chloride 105 Carbon Dioxide 24.6 Anion Gap 9 BUN 9 Creatinine 0.7 Estim Creat Clear Calc 118.0 eGFR > 60 BUN/Creatinine Ratio 13 Glucose 96 Calculated Osmolality 276 Calcium 9.0 Corrected Calcium 9.1 Phosphorus 2.9 Magnesium 2.0 Total Bilirubin 1.5 H D AST 49 H ALT 58 H Alkaline Phosphatase 47 B-Natriuretic Peptide 298 H Total Protein 6.9 Albumin 3.9 Globulin 3.0 Albumin/Globulin Ratio 1.3 Quality Measures Quality Measures sepsis Current suspected stage: sepsis (resolved) Possible source: pulmonary Blood cultures ordered: yes Antibiotic ordered: Yes Assessment & Plan Assessment Current Active Medications: Generic Name Dose Route Start Last Admin Trade Name Freq PRN Reason Stop Dose Admin Acetaminophen 650 mg 08/03/24 17:25 Acetaminophen 325 Mg Tablet PO 09/02/24 17:24 Q6H PRN Fever >100.3, PAIN RATED 1-3 Apixaban 5 mg 08/06/24 09:45 Apixaban 2.5 Mg Tablet PO 09/05/24 09:44 BID [facility] Cefuroxime Axetil 250 mg 08/06/24 21:00 Cefuroxime Axetil 250 Mg Tablet PO 08/09/24 12:00 BID NANDO Fluconazole 400 mg 08/04/24 15:00 08/06/24 08:21 Fluconazole 100 Mg Tablet PO 08/11/24 14:59 400 mg QDAY NANDO Administration Levalbuterol HCl 0.63 mg 08/03/24 18:16 Levalbuterol Rt 0.63 Mg/3 Ml Nebu INH 09/02/24 18:15 Q8HRRT PRN SHORTNESS OF BREATH OR WHEEZE Metoprolol Succinate 50 mg 08/06/24 09:00 08/06/24 08:21 Metoprolol Succinate Xl 25 Mg Tabcr PO 09/05/24 08:59 50 mg QDAY NANDO Administration Ondansetron HCl 4 mg 08/03/24 17:25 Ondansetron Inj 2 Mg/Ml Inj 2 Ml IV 09/02/24 17:24 Q6H PRN NAUSEA OR VOMITING Protocol Sacubitril/Valsartan 0.5 tab 08/06/24 09:45 Sacubitril 24 Mg/Valsartan 26 Mg Tablet PO 09/05/24 09:44 BID NANDO Spironolactone 12.5 mg 08/05/24 10:30 08/06/24 08:22 Spironolactone 25 Mg Tablet PO 09/04/24 10:29 12.5 mg BID NANDO Administration Plan Mr. Gan is a 64-year-old male with no past medical history presented to the ED complaining of shortness of breath and cough for the past 4 days for which he went to a clinic and was prescribed antibiotics patient states he took the antibiotics twice yesterday and once this morning without relief and continued to have worsening cough and noticed streaks of blood in his sputum. Pt is admitted to the hospital for further management of community acquired pneumonia. 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 -Overnight on 08/04 pt developed a-fib with RVR with HR above 140's -EKG is evident pf afib wit RVR with rate of 125 -Pt is given dose of diltiazam PO overnight -CHADs-VAS score 2, at this time will defer anticoagulation -Echo done on 08/04: Normal size LV with MIld global hypokinesis LVEF 40% Normal RV size and fucntion RVSP mildly elevated 45 mmHg LA is moderatley dilated Mild MAC with moderate 2+ mitral regurgitation Mild tricuspid regurgitation AOV scelerosis with mild aortic regurgitation plan: -Diltiazam drip is turned of 08/06, transitioned to metoprolol sucinate and will continue to uptitrate as BP is able to tolerate -Metoprolol succinate 25mg daily added -Will slowly start GDMT, will continue to monitor BP and add medications as tolerated. Currently started metoprolol, 1/2 tablet entresto and spironolactone -Consulted Cardio, and following -Eliquis 5mg BID for anticoagulation in the setting of A-fib #Sepsis 2/2- resolved #Community acquired pneumonia #Cocci pneumonia #Hemoptysis - resolved -Pt is complaining of SOB, cough for 4 days, he noticed streaks of blood today in his sputum -Pt meets sepsis criteria with SIRS 2/4 tachycardia, and fever plus end organ damage, evidence of CHRIS -Lactic acid 1.4, procalcitonin 0.26 -In the ED pt received rocephin 1gm and 1L bolus fluid -CXR- Bilateral pneumonia, significant in the right lung -Cocci IgM positive Plan: -Blood and sputum cultured ordered -Supplemental oxygen PRN -IV fluids ordered -Cocci IgM positive, RSV negative TB PPD skin test negative -Influenza and covid negative -Rocephin and azithromycin started 08/03- -Flucanazole 400mg daily ordered 07/04- -ID consult placed #Acute Kidney injury - resolved -On admission Cr 1.2 and baseline 1.0, likely secondary to decreased oral intake -IV fluids given -Will continue to monitor daily CMP -Avoid nephrotoxic and renally dose medications #Fatty liver #Transiminitis - improving #Hyerbillirubinemia -On Admission Total billirubin 1.7 and AST 81 and ALT 59 -Pt denies alcohol use or RUQ pain -Liver US - showed pancreatic head priminent 3.7cm -CT of abdomen/Pelvis did not show pancreatic mass or peripancreatic edema -will continue to monitor daily labs Health Maintenance Disposition: telemetry for management and monitoring of afib DVT Prophylaxis: pt is on eliquis GI Prophylaxis: not indicated Diet: Cardiac Diet Lines: Peripheral lines Code status: Full Assessment and plan discussed with my senior resident Dr. Wilkinson & attending physician Dr. Reina Moody (PGY-1)- Internal medicine resident Attending Provider Attestation/Addendum I attest that I was physically present for the evaluation, physical examination, lab and imaging review of the patient with the residents. I discussed the case with the residents and agree with the findings and plans of care as documented above. At bedside, patient states he is feeling better and denies new complaints.? Noted to have mild elevation in bilirubin from 0.8-1.5.? AST and ALT are slightly elevated but stable.? BNP also mildly elevated at 298.? Patient does not have any pedal edema on exam.? Continues to have bilateral wheezing but saturating well on room air.? Patient continues to be on A-fib with heart rate fluctuating between 80s to 140s.? Discussed with cardiology, changed metoprolol dosing from 50 mg daily to 50 mg twice daily.? Patient also continues to have high blood pressure.? Added half tab Entresto twice daily. Amanda Huang MD
[2024-08-06 10:06] LABS: Coccid Serology, CF (UCD)* See Sep Rpt
[2024-08-06] MEDS: SACUBITRIL 24 MG/VALSARTAN 26 MG TABLET 0.5 TAB PO ×2 (10:07→20:18)
[2024-08-06] MEDS: APIXABAN 2.5 MG TABLET 5 MG PO ×2 (10:07→20:26)
[2024-08-06 11:07] LABS: Hepatitis C Antibody Non Reactive (Non React)
[2024-08-06 11:52] LABS: HIV (1&2) Antibody Rapid Non-Reactive
--- NOTE | 2024-08-06 13:10 | PC.CC ---
Gris, Dental Financial Coordinator, met with patient and at bedside to discuss insurance coverage and medication access. Note [employer] Cov [place] card scanned into EMR today. See note below. Provided the patient with discount cards for newly prescribed discharge medications. Advised the patient to follow up with their primary care provider (PCP) for medication refills and routine follow-up care. Additionally, encouraged the patient to verify their insurance status. The patient?s reported that their insurance had been mistakenly deactivated, but she received notification on 08/05/2024 that it has been reactivated and may take a few days to reflect in the system. The patient inquired about an outpatient cardiology referral; I advised them to discuss this with the medical team, who can assess the need for outpatient cardiology follow-up.
--- NOTE | 2024-08-06 13:27 | ESPR_ITS ---
<Statement entered by Marcial Rees MD - 08/07/24 19:50> I personally examined the patient evaluated patient appears to be doing better but heart rate is still 120 bpm despite increasing metoprolol succinate to 50 mg dose twice daily will recommend IV amiodarone drip bolus followed by infusion continue anticoagulation as well with Eliquis. If the heart rate is controlled or if patient goes to sinus rhythm we will discharge him home tomorrow otherwise may require another day of hospitalization I evaluated the patient with PGY 2 Dr[address] Denisha Dc agree with treatment plan recommendations. Documentation for date of: 08/06/24 Subjective Subjective Interval history: No acute events overnight.?Diltiazem drip was discontinued and metoprolol succinate was increased from 50 mg qday to BID. Patient seen and examined at bedside, he reports no new symptoms and that he is feeling better since admission. He denies any chest pain, palpitations, or shortness of breath.?Labs and vitals were reviewed.?24-hour telemetry reviewed. Patient HR remains fluctuating from 80-150s in afib. Due to this patient was started on amiodarone drip in the evening. Hopefully will convert and be transitioned to PO for discharge. Potassium 3.6 this morning and patient received 40 mEq PO repletion. Magnesium 2.0. BNP was 298. Treatment course was explained to patient using [place]ugu [employer] upholstery tech. No further complaints at this time. Review of systems otherwise negative except what is mentioned above. Exam Vital Signs Temp Pulse Resp BP Pulse Ox O2 Del Method O2 Flow Rate 98.4 F 124 H 14 149/92 H 99 Room Air 2 08/06/24 12:00 08/06/24 12:00 08/06/24 12:08/06/24 12:08/06/24 12:08/06/24 12:08/05/24 16:00 Narrative Exam Physical Exam General: Awake and in no acute distress. Conversational and non-toxic appearing. HEENT: Normocephalic, atraumatic, mucous membranes moist. Heart: Irregularly irregular rate and rhythm, normal S1 and S2, no murmurs. Lungs: Clear to auscultation bilaterally. Abdomen: Soft, obese, nondistended, nontender, positive bowel sounds. ?No guarding or rebound tenderness. Neurologic: Alert and oriented x3, no gross neurological deficit, and patient able to move all 4 extremities. Extremities: No edema. Skin: No rash or ecchymoses. Objective Labs 08/06/24 05:26 08/06/24 05:26 Labs: Laboratory Results - last 24 hr 08/06/24 05:26 WBC 7.6 RBC 4.91 Hgb 15.3 Hct 43.6 MCV 89 MCH 31.2 MCHC 35.1 RDW Std Deviation 40.0 Plt Count 164 Neut % (Auto) 55 Lymph % (Auto) 35 [place] % (Auto) 8 Eos % (Auto) 1 Baso % (Auto) 1 Neut # (Auto) 4.1 Lymph # (Auto) 2.7 [place] # (Auto) 0.6 Eos # (Auto) 0.1 Baso # (Auto) 0.0 Immature Gran # (Auto) 0.04 H Absolute Nucleated RBC 0.00 Immature Gran % 1 H Nucleated RBC % 0 Sodium 139 Potassium 3.6 Chloride 105 Carbon Dioxide 24.6 Anion Gap 9 BUN 9 Creatinine 0.7 Estim Creat Clear Calc 118.0 eGFR > 60 BUN/Creatinine Ratio 13 Glucose 96 Calculated Osmolality 276 Calcium 9.0 Corrected Calcium 9.1 Phosphorus 2.9 Magnesium 2.0 Total Bilirubin 1.5 H D AST 49 H ALT 58 H Alkaline Phosphatase 47 B-Natriuretic Peptide 298 H Total Protein 6.9 Albumin 3.9 Globulin 3.0 Albumin/Globulin Ratio 1.3 Hepatitis C Antibody Non Reactive HIV 1&2 Antibody Rapid Non-Reactive Quality Measures Quality Measures sepsis Current suspected stage: sepsis Possible source: pulmonary Blood cultures ordered: yes Antibiotic ordered: Yes Assessment & Plan Assessment Current Active Medications: Generic Name Dose Route Start Last Admin Trade Name Freq PRN Reason Stop Dose Admin Acetaminophen 650 mg 08/03/24 17:25 Acetaminophen 325 Mg Tablet PO 09/02/24 17:24 Q6H PRN Fever >100.3, PAIN RATED 1-3 Apixaban 5 mg 08/06/24 09:45 08/06/24 10:07 Apixaban 2.5 Mg Tablet PO 09/05/24 09:44 5 mg BID NANDO Administration Cefuroxime Axetil 250 mg 08/06/24 21:00 Cefuroxime Axetil 250 Mg Tablet PO 08/09/24 12:00 BID NANDO Fluconazole 400 mg 08/04/24 15:00 08/06/24 08:21 Fluconazole 100 Mg Tablet PO 08/11/24 14:59 400 mg QDAY NANDO Administration Levalbuterol HCl 0.63 mg 08/03/24 18:16 Levalbuterol Rt 0.63 Mg/3 Ml Nebu INH 09/02/24 18:15 Q8HRRT PRN SHORTNESS OF BREATH OR WHEEZE Metoprolol Succinate 50 mg 08/06/24 21:00 Metoprolol Succinate Xl 25 Mg Tabcr PO 09/05/24 20:59 BID NANDO Ondansetron HCl 4 mg 08/03/24 17:25 Ondansetron Inj 2 Mg/Ml Inj 2 Ml IV 09/02/24 17:24 Q6H PRN NAUSEA OR VOMITING Protocol Sacubitril/Valsartan 0.5 tab 08/06/24 09:45 08/06/24 10:07 Sacubitril 24 Mg/Valsartan 26 Mg Tablet PO 09/05/24 09:44 0.5 tab BID NANDO Administration Spironolactone 12.5 mg 08/05/24 10:30 08/06/24 08:22 Spironolactone 25 Mg Tablet PO 09/04/24 10:29 12.5 mg BID NANDO Administration Plan 64-year-old male with no past medical history who presented to the ED on 08/03/2024 with 4 days of shortness of breath, cough, and blood-tinged sputum. Patient was subsequently admitted for sepsis secondary to community acquired pneumonia and was diagnosed with pulmonary coccidioidomycosis with a positive IgM. Cardiology was consulted due to persistent afib and new onset CHF as found on echo with EF of 40%. #Persistent versus paroxsymal afib with RvR Patient was tachycardic on admission and on the same night rapid was called for afib with RvR. EKG at that time showed afib at a rate of 125. Patient denies known history of diagnosed afib. [id number] score is 2 stroke risk 2.2% per year given +hypertension and +CHF as found on this admission. Anticoagulation may be recommended. 08/06/2024 HR is still afib fluctuating 80-150, therefore amio drip was started -Increased metoprolol succinate 50 mg qday to BID, may convert to 100 mg qday on discharge -Started amiodarone IV drip -Keep K >4.0 and Mag >2.0 -Continue Eliquis 5 mg BID #New diagnosis of CHF with reduced EF 40%, not currently in exacerbation #History of angina-type chest pain #Likely tachycardia-induced cardiomyopathy 08/04/2024 Echo showed normal size LV with mild global hypokinesis LVEF 40%, normal RV size and function, RVSP mildly elevated 45 mmHg, LA is moderately dilated, mild MAC with moderate 2+ mitral regurgitation, mild tricuspid regurgitation, AOV sclerosis with mild aortic regurgitation. Patient denies any known cardiac history. Patient does endorse episodes of anginal-like chest pain lasting 15 minutes with physical activity that improves upon rest, this happens every once in a couple months. Patient denies any chest pain this admission, denies orthopnea, denies any leg edema. Does not appear to be in acute heart failure exacerbation at this time. Patient denies drug use or any significant alcohol use. Suspecting tachycardia-induced cardiomyopathy. Ischemic heart disease also cannot be ruled out and patient likely would benefit from outpatient cardiac workup. -Increased metoprolol succinate 50 mg qday to BID, may convert to 100 mg qday on discharge -Outpatient cardiac stress testing after sepsis is treated #Essential hypertension Patient had BP ranging in the 140-150 systolic and the 80-90s diastolic range since admission, likely has some underlying hypertension, patient not previously on meds. -Continue with beta-pema -Continue with HIRAM/ARB or Entresto Rest of conditions to continue current management per primary team: #Sepsis #Community acquired pneumonia #Pulmonary coccidioidomycosis #Acute kidney injury #Elevated AST and ALT #Elevated alkaline phosphatase Patient was discussed with the Cardiology attending, Dr. Rees. Thank you for allowing us to participate in the care of this patient. Natasha Dc, PGY-2
--- NOTE | 2024-08-06 15:42 | PC.SS ---
SS follow up note; Heart rate being monitored, patient will discharge back home when medically cleared.
[2024-08-06] MEDS: AMIODARONE 150 MG IVPB 150 MG/100 ML BAG 600 MG IV (20:03)
[2024-08-06] MEDS: cefuroxime axetiL 250 MG TABLET PO (20:19)
[2024-08-06] MEDS: AMIODARONE 360 MG IVPB 360 MG/200 ML BAG 33.333 MG IV (20:24)
[2024-08-07] VITALS (14 sets, daily range): BP systolic 124–155; BP diastolic 95–116; PULSE 82–125; RESP 12–97; TEMP 35.9–36.6; O2SAT 97–100
[2024-08-07] MEDS: AMIODARONE 360 MG IVPB 360 MG/200 ML BAG 16.667 MG IV ×2 (02:06→13:46)
[2024-08-07 07:22] LABS: Alanine Aminotransferase 81 U/L (10-49); Albumin/Globulin Ratio 1.3 (1.2-2.2); Alkaline Phosphatase 51 U/L (46-116); Anion Gap 7 (7-16); Aspartate Amino Transferase 56 U/L (0-34); BUN/Creatinine Ratio 14 Ratio (12-20); Bilirubin,Total 1.3 mg/dL (0.3-1.2); Blood Urea Nitrogen 13 mg/dL (9-23); Calcium 9.2 mg/dL (8.3-10.6); Calcium (Corrected) 9.2 mg/dL (8.5-10.1); Carbon Dioxide 27.9 mMol/L (20.0-31.0); Chloride 103 mMol/L (98-107); Creatinine (Component) 0.9 mg/dL (0.6-1.3); Estimated Creatinine Clearance 91.8 mL/min (>60); Glucose 111 mg/dL (74-106); Magnesium 2.1 mg/dL (1.6-2.6); Osmolality,Calculated 276 (275-295); Potassium 4.6 mMol/L (3.4-5.1); Sodium 138 mMol/L (136-145); eGFR > 60 See Note
[2024-08-07] MEDS: APIXABAN 2.5 MG TABLET 5 MG PO ×2 (08:32→20:22)
[2024-08-07] MEDS: SACUBITRIL 24 MG/VALSARTAN 26 MG TABLET 0.5 TAB PO (08:33)
[2024-08-07] MEDS: cefuroxime axetiL 250 MG TABLET PO ×2 (08:33→20:23)
[2024-08-07] MEDS: FLUCONAZOLE 100 MG TABLET 400 MG PO (08:34)
[2024-08-07] MEDS: SPIRONOLACTONE 25 MG TABLET 12.5 MG PO ×2 (08:34→20:23)
[2024-08-07] MEDS: METOPROLOL SUCCINATE XL 25 MG TABCR 100 MG PO (08:39)
[2024-08-07] MEDS: DAPAGLIFLOZIN PROPANEDIOL 5 MG TABLET PO (10:02)
--- NOTE | 2024-08-07 10:08 | PD.RESPRO ---
Documentation for date of: 08/07/24 Subjective Subjective Interval history: No acute overnight events reported. Patient is seen and examined at bedside this morning patient denies shortness of breath, chest pain, palpitation or chest pressure. Patient continues to have a lingering cough but is not as bothersome as before. Patient is saturating on room air and is comfortable. Patient's is at bedside. Patient continues to be in A-fib, yesterday patient was started on amnio drip by the fire control technician b however patient continues to be in A-fib on telemetry with a heart rate going up to 130s. Although patient is eager to go home he understands that his heart rate needs to be have better control, discussed with patient not if unable to be rate controlled by amiodarone will consider a discussion with cardiology about the possibility of cardioversion which patient is agreeable to. Blood pressure is improved however still high therefore we will increase the Entresto to 1 tablet twice daily and will add SGL 2 inhibitor. Patient is net +400 mL and fluid restrictions are to 1500. Labs are reviewed and are stable, T. bili is improving. Patient has no other complaints. Exam Vital Signs Temp Pulse Resp BP Pulse Ox O2 Del Method O2 Flow Rate 96.9 F 120 H 16 155/109 H 100 Room Air 2 08/07/24 08:00 08/07/24 08:39 08/07/24 08:00 08/07/24 08:39 08/07/24 08:00 08/07/24 08:00 08/05/24 16:00 Narrative Exam GENERAL: A&Ox3 . elderly obese male, laying in bed, saturating on room air, not in acute distress NEURO: no focal neurological deficits noted HEENT: Atraumatic, Normocephalic. mucous membranes moist. Eyes open, symmetrical, & clear HEART: Normal Heart Sounds LUNGS: clear breath sounds heard bilaterally ABDOMEN: soft, non-distended, non-tender, bowel sounds heard, no guarding or rebound tenderness SKIN: No Rash or ecchymoses EXTREMITIES: No edema, tenderness, able to move all 4 extremities, pedal pulses palpated Objective Labs 08/06/24 05:26 08/07/24 06:45 Labs: Laboratory Results - last 24 hr 08/06/24 08/07/24 05:26 06:45 Sodium 138 Potassium 4.6 D Chloride 103 Carbon Dioxide 27.9 Anion Gap 7 BUN 13 Creatinine 0.9 Estim Creat Clear Calc 91.8 eGFR > 60 BUN/Creatinine Ratio 14 Glucose 111 H Calculated Osmolality 276 Calcium 9.2 Corrected Calcium 9.2 Magnesium 2.1 Total Bilirubin 1.3 H AST 56 H ALT 81 H Alkaline Phosphatase 51 Total Protein 7.0 Albumin 4.0 Globulin 3.0 Albumin/Globulin Ratio 1.3 Hepatitis C Antibody Non Reactive HIV 1&2 Antibody Rapid Non-Reactive Quality Measures Quality Measures sepsis Current suspected stage: sepsis (resolved) Possible source: pulmonary Blood cultures ordered: yes Antibiotic ordered: Yes Assessment & Plan Assessment Current Active Medications: Generic Name Dose Route Start Last Admin Trade Name Freq PRN Reason Stop Dose Admin Acetaminophen 650 mg 08/03/24 17:25 Acetaminophen 325 Mg Tablet PO 09/02/24 17:24 Q6H PRN Fever >100.3, PAIN RATED 1-3 Apixaban 5 mg 08/06/24 09:45 08/07/24 08:32 Apixaban 2.5 Mg Tablet PO 09/05/24 09:44 5 mg BID NANDO Administration Cefuroxime Axetil 250 mg 08/06/24 21:00 08/07/24 08:33 Cefuroxime Axetil 250 Mg Tablet PO 08/09/24 12:00 250 mg BID NANDO Administration Dapagliflozin 5 mg 08/07/24 10:00 08/07/24 10:02 Dapagliflozin Propanediol 5 Mg Tablet PO 09/06/24 09:59 5 mg QAM NANDO Administration Fluconazole 400 mg 08/04/24 15:00 08/07/24 08:34 Fluconazole 100 Mg Tablet PO 08/11/24 14:59 400 mg QDAY NANDO Administration Amiodarone HCl/Dextrose 360 mg in 200 mls @ 16.667 mls/hr 08/07/24 01:55 08/07/24 02:06 Nexterone Ivpb IV 08/08/24 01:54 16.667 mls/hr .Q12H NANDO Administration Levalbuterol HCl 0.63 mg 08/03/24 18:16 Levalbuterol Rt 0.63 Mg/3 Ml Nebu INH 09/02/24 18:15 Q8HRRT PRN SHORTNESS OF BREATH OR WHEEZE Metoprolol Succinate 100 mg 08/07/24 09:00 08/07/24 08:39 Metoprolol Succinate Xl 25 Mg Tabcr PO 09/06/24 08:59 100 mg QDAY NANDO Administration Ondansetron HCl 4 mg 08/03/24 17:25 Ondansetron Inj 2 Mg/Ml Inj 2 Ml IV 09/02/24 17:24 Q6H PRN NAUSEA OR VOMITING Protocol Sacubitril/Valsartan 1 tab 08/07/24 21:00 Sacubitril 24 Mg/Valsartan 26 Mg Tablet PO 09/06/24 20:59 BID NANDO Spironolactone 12.5 mg 08/05/24 10:30 08/07/24 08:34 Spironolactone 25 Mg Tablet PO 09/04/24 10:29 12.5 mg BID NANDO Administration Plan Mr. aGn is a 64-year-old male with no past medical history presented to the ED complaining of shortness of breath and cough for the past 4 days for which he went to a clinic and was prescribed antibiotics patient states he took the antibiotics twice yesterday and once this morning without relief and continued to have worsening cough and noticed streaks of blood in his sputum. Pt is admitted to the hospital for further management of community acquired pneumonia. 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 -Overnight on 08/04 pt developed a-fib with RVR with HR above 140's -EKG is evident pf afib wit RVR with rate of 125 -Pt is given dose of diltiazam PO overnight -CHADs-VAS score 2, at this time will defer anticoagulation -Echo done on 08/04: Normal size LV with MIld global hypokinesis LVEF 40% Normal RV size and fucntion RVSP mildly elevated 45 mmHg LA is moderatley dilated Mild MAC with moderate 2+ mitral regurgitation Mild tricuspid regurgitation AOV scelerosis with mild aortic regurgitation Plan: -Diltiazam drip is turned of 08/06, transitioned to metoprolol sucinate and will continue to uptitrate as BP is able to tolerate -Metoprolol succinate 25mg daily added -Will slowly start GDMT, will continue to monitor BP and add medications as tolerated. Currently started metoprolol, 1/2 tablet entresto and spironolactone -Consulted Cardio, and following -Eliquis 5mg BID for anticoagulation in the setting of A-fib #Sepsis 2/2- resolved #Community acquired pneumonia #Cocci pneumonia #Hemoptysis - resolved -Pt is complaining of SOB, cough for 4 days, he noticed streaks of blood today in his sputum -Pt meets sepsis criteria with SIRS 2/4 tachycardia, and fever plus end organ damage, evidence of CHRIS -Lactic acid 1.4, procalcitonin 0.26 -In the ED pt received rocephin 1gm and 1L bolus fluid -CXR- Bilateral pneumonia, significant in the right lung -Cocci IgM positive Plan: -Blood and sputum cultured ordered -Supplemental oxygen PRN -IV fluids ordered -Cocci IgM positive, RSV negative TB PPD skin test negative -Influenza and covid negative -Rocephin and azithromycin started 08/03- 08/06, started on cefuroxime 250 twice daily 08/06- -Flucanazole 400mg daily ordered 07/04- -ID following, appreciate recommendations #Acute Kidney injury - resolved -On admission Cr 1.2 and baseline 1.0, likely secondary to decreased oral intake -IV fluids given -Will continue to monitor daily CMP -Avoid nephrotoxic and renally dose medications #Fatty liver #Transiminitis - improving #Hyerbillirubinemia -On Admission Total billirubin 1.7 and AST 81 and ALT 59 -Pt denies alcohol use or RUQ pain -Liver US - showed pancreatic head prominent 3.7cm -CT of abdomen/Pelvis did not show pancreatic mass or peripancreatic edema -will continue to monitor daily labs Health Maintenance Disposition: telemetry for management and monitoring of afib DVT Prophylaxis: pt is on eliquis GI Prophylaxis: not indicated Diet: Cardiac Diet Lines: Peripheral lines Code status: Full Assessment and plan discussed with my attending physician Dr. Reina Moody (PGY-1)- Internal medicine resident Attending Provider Attestation/Addendum I attest that I was physically present for the evaluation, physical examination, lab and imaging review of the patient with the residents. I discussed the case with the residents and agree with the findings and plans of care as documented above. At bedside, patient continues to feel well and denies any new complaints. Has been saturating well on room air. Blood pressure has been slightly elevated. Patient continues to be on A-fib with RVR with heart rate going up to 140s. Has been started on amiodarone drip with cardiology. Also added SGLT2 inhibitor along with increasing Entresto dosing to full tablets twice daily. 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 Antibiotics have been switched to cefuroxime for possible superimposed bacterial pneumonia. Infectious disease following, appreciate recommendations. CHRIS has resolved, creatinine stable. Liver function continues to be stable as well. Awaiting patient's heart rate to be stabilized before discharge. Amanda Huang MD
--- NOTE | 2024-08-07 17:19 | ESPR_ITS ---
<Statement entered by Marcial Rees MD - 08/08/24 16:30> I personally evaluated the patient examined in the telemetry unit to 60 discussed about options patient has atrial fibrillation are very symptomatic but heart rate is quite fast 110 120 range amiodarone is being continued we will continue the amiodarone and switch her to oral amiodarone after the 3 bags for rate control also continue to increase beta-pema dose to 100 mg twice daily as tolerated for rate control continue anticoagulation. Since the patient not symptomatic no need for cardioversion we will plan on doing elective cardioversion after 3 weeks of anticoagulation. Continue to monitor the patient in the telemetry. I discussed about all options and explained risks benefits alternatives with the patient with per diem interpreter and understood. Evaluate the patient along with resident physician PGY [address] Dr[address] Denisha Dc agree with the treatment plan recommendation as documented. Documentation for date of: 08/07/24 Subjective Subjective Interval history: No acute events overnight.?Patient seen and examined at bedside this AM.?He reports doing better, cough has improved overall. He continues to be asymptomatic for the afib, denying chest pain or palpitations. Labs and vitals were reviewed.?Potassium 4.6, Mag 2.1. He remains saturating well on room air. Patient continues to have elevated BP systolic ranging 140-150s and diastolic elevated at 90-110s. Okay with increasing dose of Entresto. 24-hour telemetry reviewed and showed that the patient was still in afib with rate continuously fluctuating in the 80-130s. There appears to be slight improvement in heart rate variability after starting the amiodarone drip. Will complete the loading infusion and transition to PO amio tomorrow. Likely discharge on 200 mg PO amiodarone BID and metoprolol XL 100 mg qday. Continue with the Eliquis and patient will need close outpatient follow-up with cardiology. Review of systems otherwise negative except what is mentioned above. Exam Vital Signs Temp Pulse Resp BP Pulse Ox O2 Del Method O2 Flow Rate 96.9 F 102 H 27 H 137/102 H 100 Room Air 2 08/07/24 16:00 08/07/24 16:00 08/07/24 16:00 08/07/24 16:00 08/07/24 16:00 08/07/24 16:00 08/07/24 16:00 Narrative Exam Physical Exam General: Awake and in no acute distress. Conversational and non-toxic appearing. HEENT: Normocephalic, atraumatic, mucous membranes moist. Heart: Irregularly irregular rate and rhythm, normal S1 and S2, no murmurs. Lungs: Clear to auscultation bilaterally. Abdomen: Soft, obese, nondistended, nontender, positive bowel sounds. ?No guarding or rebound tenderness. Neurologic: Alert and oriented x3, no gross neurological deficit, and patient able to move all 4 extremities. Extremities: No edema. Skin: No rash or ecchymoses. Objective Labs 08/06/24 05:26 08/07/24 06:45 Labs: Laboratory Results - last 24 hr 08/07/24 06:45 Sodium 138 Potassium 4.6 D Chloride 103 Carbon Dioxide 27.9 Anion Gap 7 BUN 13 Creatinine 0.9 Estim Creat Clear Calc 91.8 eGFR > 60 BUN/Creatinine Ratio 14 Glucose 111 H Calculated Osmolality 276 Calcium 9.2 Corrected Calcium 9.2 Magnesium 2.1 Total Bilirubin 1.3 H AST 56 H ALT 81 H Alkaline Phosphatase 51 Total Protein 7.0 Albumin 4.0 Globulin 3.0 Albumin/Globulin Ratio 1.3 Quality Measures Quality Measures sepsis Current suspected stage: ruled out Possible source: pulmonary Blood cultures ordered: yes Antibiotic ordered: Yes Assessment & Plan Assessment Current Active Medications: Generic Name Dose Route Start Last Admin Trade Name Freq PRN Reason Stop Dose Admin Acetaminophen 650 mg 08/03/24 17:25 Acetaminophen 325 Mg Tablet PO 09/02/24 17:24 Q6H PRN Fever >100.3, PAIN RATED 1-3 Apixaban 5 mg 08/06/24 09:45 08/07/24 08:32 Apixaban 2.5 Mg Tablet PO 09/05/24 09:44 5 mg BID NANDO Administration Cefuroxime Axetil 250 mg 08/06/24 21:00 08/07/24 08:33 Cefuroxime Axetil 250 Mg Tablet PO 08/09/24 12:00 250 mg BID NANDO Administration Dapagliflozin 5 mg 08/07/24 10:00 08/07/24 10:02 Dapagliflozin Propanediol 5 Mg Tablet PO 09/06/24 09:59 5 mg QAM NANDO Administration Fluconazole 400 mg 08/04/24 15:00 08/07/24 08:34 Fluconazole 100 Mg Tablet PO 08/11/24 14:59 400 mg QDAY NANDO Administration Amiodarone HCl/Dextrose 360 mg in 200 mls @ 16.667 mls/hr 08/07/24 01:55 08/07/24 13:46 Nexterone Ivpb IV 08/08/24 01:54 16.667 mls/hr .Q12H NANDO Administration Levalbuterol HCl 0.63 mg 08/03/24 18:16 Levalbuterol Rt 0.63 Mg/3 Ml Nebu INH 09/02/24 18:15 Q8HRRT PRN SHORTNESS OF BREATH OR WHEEZE Metoprolol Succinate 100 mg 08/07/24 09:00 08/07/24 08:39 Metoprolol Succinate Xl 25 Mg Tabcr PO 09/06/24 08:59 100 mg QDAY NANDO Administration Ondansetron HCl 4 mg 08/03/24 17:25 Ondansetron Inj 2 Mg/Ml Inj 2 Ml IV 09/02/24 17:24 Q6H PRN NAUSEA OR VOMITING Protocol Sacubitril/Valsartan 1 tab 08/07/24 21:00 Sacubitril 24 Mg/Valsartan 26 Mg Tablet PO 09/06/24 20:59 BID NANDO Spironolactone 12.5 mg 08/05/24 10:30 08/07/24 08:34 Spironolactone 25 Mg Tablet PO 09/04/24 10:29 12.5 mg BID NANDO Administration Plan 64-year-old male with no past medical history who presented to the ED on 08/03/2024 with 4 days of shortness of breath, cough, and blood-tinged sputum. Patient was subsequently admitted for sepsis secondary to community acquired pneumonia and was diagnosed with pulmonary coccidioidomycosis with a positive IgM. Cardiology was consulted due to persistent afib and new onset CHF as found on echo with EF of 40%. #Persistent versus paroxsymal afib with RvR Patient was tachycardic on admission and on the same night rapid was called for afib with RvR. EKG at that time showed afib at a rate of 125. Patient denies known history of diagnosed afib. [id number] score is 2 stroke risk 2.2% per year given +hypertension and +CHF as found on this admission. Anticoagulation may be recommended. 08/06/2024 HR is still afib fluctuating 80-150, therefore amio drip was started For consideration of cardioversion, patient may require a CHEL to first evaluate for any thrombus as it is uncertain how long the patient has been in afib prior to hospitalization. Likely will be outpatient follow up. -Continue metoprolol succinate 100 mg qday -Continue amiodarone IV drip until completion -Start amiodarone 200 mg BID tomorrow AM -Keep K >4.0 and Mag >2.0 -Continue Eliquis 5 mg BID -Discharge tomorrow on the above regimen if HR <110, follow up with cardiology in 1-2 weeks #New diagnosis of CHF with reduced EF 40%, not currently in exacerbation #History of angina-type chest pain #Likely tachycardia-induced cardiomyopathy 08/04/2024 Echo showed normal size LV with mild global hypokinesis LVEF 40%, normal RV size and function, RVSP mildly elevated 45 mmHg, LA is moderately dilated, mild MAC with moderate 2+ mitral regurgitation, mild tricuspid regurgitation, AOV sclerosis with mild aortic regurgitation. Patient denies any known cardiac history. Patient does endorse episodes of anginal-like chest pain lasting 15 minutes with physical activity that improves upon rest, this happens every once in a couple months. Patient denies any chest pain this admission, denies orthopnea, denies any leg edema. Does not appear to be in acute heart failure exacerbation at this time. Patient denies drug use or any significant alcohol use. Suspecting tachycardia-induced cardiomyopathy. Ischemic heart disease also cannot be ruled out and patient likely would benefit from outpatient cardiac workup. -Continue metoprolol succinate 100 mg qday -Outpatient cardiac stress testing after sepsis is treated #Essential hypertension Patient had BP ranging in the 140-150 systolic and the 90-110s diastolic range since admission, likely had underlying untreated hypertension, patient not previously on meds. -Continue with beta-pema -Continue with HIRAM/ARB or Entresto Rest of conditions to continue current management per primary team: #Sepsis #Community acquired pneumonia #Pulmonary coccidioidomycosis #Acute kidney injury #Elevated AST and ALT #Elevated alkaline phosphatase Patient was discussed with the Cardiology attending, Dr. Rees. Thank you for allowing us to participate in the care of this patient. Natasha Dc, PGY-2
[2024-08-07] MEDS: SACUBITRIL 24 MG/VALSARTAN 26 MG TABLET 1 TAB PO (20:22)
[2024-08-08] VITALS (16 sets, daily range): BP systolic 126–157; BP diastolic 92–113; PULSE 84–145; RESP 14–100; TEMP 36.1–36.6; O2SAT 97–100
[2024-08-08 06:33] LABS: Alanine Aminotransferase 75 U/L (10-49); Albumin, Serum 3.8 gm/dL (3.4-4.8); Alkaline Phosphatase 49 U/L (46-116); Anion Gap 10 (7-16); BUN/Creatinine Ratio 12 Ratio (12-20); Blood Urea Nitrogen 13 mg/dL (9-23); Calcium 8.9 mg/dL (8.3-10.6); Calcium (Corrected) 9.1 mg/dL (8.5-10.1); Carbon Dioxide 23.1 mMol/L (20.0-31.0); Chloride 103 mMol/L (98-107); Creatinine (Component) 1.1 mg/dL (0.6-1.3); Estimated Creatinine Clearance 75.1 mL/min (>60); Glucose 109 mg/dL (74-106); Osmolality,Calculated 273 (275-295); Potassium 4.4 mMol/L (3.4-5.1); Sodium 136 mMol/L (136-145); eGFR > 60 See Note
[2024-08-08 06:37] LABS: Albumin/Globulin Ratio 1.1 (1.2-2.2); Aspartate Amino Transferase 40 U/L (0-34); Bilirubin,Total 1.9 mg/dL (0.3-1.2); Globulin 3.4 gm/dL (2.3-3.5); Total Protein 7.2 gm/dL (5.7-8.2)
[2024-08-08] MEDS: AMIODARONE HCL 200 MG TABLET PO ×2 (10:12→20:39)
[2024-08-08] MEDS: METOPROLOL SUCCINATE XL 25 MG TABCR 100 MG PO ×2 (10:17→20:40)
[2024-08-08] MEDS: SPIRONOLACTONE 25 MG TABLET 12.5 MG PO ×2 (10:17→20:38)
[2024-08-08] MEDS: APIXABAN 2.5 MG TABLET 5 MG PO ×2 (10:17→20:39)
[2024-08-08] MEDS: DAPAGLIFLOZIN PROPANEDIOL 5 MG TABLET PO (10:18)
[2024-08-08] MEDS: FLUCONAZOLE 100 MG TABLET 400 MG PO (10:18)
[2024-08-08] MEDS: cefuroxime axetiL 250 MG TABLET PO ×2 (10:18→20:39)
[2024-08-08] MEDS: SACUBITRIL 24 MG/VALSARTAN 26 MG TABLET 1 TAB PO ×2 (10:18→20:39)
--- NOTE | 2024-08-08 12:44 | ESPR_ITS ---
Documentation for date of: 08/08/24 Subjective Subjective Interval history: Patient was seen and examined at bedside. No acute overnight events. He is currently remains elevated between 80 to 130 bpm and is irregularly irregular. He is on oral amiodarone and metoprolol for rate control. Will discuss with cardiology regarding further management of his A-fib and continue monitoring patient. Discharge was postponed due to A-fib with RVR. Exam Vital Signs Temp Pulse Resp BP Pulse Ox O2 Del Method O2 Flow Rate 96.9 F 118 H 15 154/98 H 100 Room Air 2 08/08/24 11:39 08/08/24 11:39 08/08/24 11:39 08/08/24 11:39 08/08/24 11:39 08/08/24 11:39 08/07/24 16:00 Narrative Exam Gen: Well-developed and well-nourished obese male. HEENT: NCAT, PERRLA, EOMI, MMM, anicteric conjunctivae. CVS: normal S1 and S2. Irregularly irregular. No M/R/G. Resp: CTA B/L. No rhonchi, rales, crackles or wheezing. Abd: soft, obese, non-tender, non-distended. BS+ in all 4 quadrants. MSK: Good ROM in BUE & BLE. No edema or rash. Neuro: CN II-XII grossly intact. Strength 5/5 in BUE & BLE. Alert and oriented x3. Psych: appropriate mood and affect. Objective Labs 08/06/24 05:26 08/08/24 05:32 Labs: Laboratory Results - last 24 hr 08/08/24 05:32 Sodium 136 Potassium 4.4 Chloride 103 Carbon Dioxide 23.1 Anion Gap 10 BUN 13 Creatinine 1.1 Estim Creat Clear Calc 75.1 eGFR > 60 BUN/Creatinine Ratio 12 Glucose 109 H Calculated Osmolality 273 L Calcium 8.9 Corrected Calcium 9.1 Magnesium 2.0 Total Bilirubin 1.9 H D AST 40 H ALT 75 H Alkaline Phosphatase 49 Total Protein 7.2 Albumin 3.8 Globulin 3.4 Albumin/Globulin Ratio 1.1 L Quality Measures Quality Measures sepsis Current suspected stage: sepsis Possible source: pulmonary Blood cultures ordered: yes Antibiotic ordered: Yes Assessment & Plan Assessment Current Active Medications: Generic Name Dose Route Start Last Admin Trade Name Freq PRN Reason Stop Dose Admin Acetaminophen 650 mg 08/03/24 17:25 Acetaminophen 325 Mg Tablet PO 09/02/24 17:24 Q6H PRN Fever >100.3, PAIN RATED 1-3 Amiodarone HCl 200 mg 08/08/24 09:00 08/08/24 10:12 Amiodarone Hcl 200 Mg Tablet PO 09/07/24 08:59 200 mg BID NANDO Administration Apixaban 5 mg 08/06/24 09:45 08/08/24 10:17 Apixaban 2.5 Mg Tablet PO 09/05/24 09:44 5 mg BID NANDO Administration Cefuroxime Axetil 250 mg 08/06/24 21:00 08/08/24 10:18 Cefuroxime Axetil 250 Mg Tablet PO 08/09/24 12:00 250 mg BID NANDO Administration Dapagliflozin 5 mg 08/07/24 10:00 08/08/24 10:18 Dapagliflozin Propanediol 5 Mg Tablet PO 09/06/24 09:59 5 mg QAM NNADO Administration Fluconazole 400 mg 08/04/24 15:00 08/08/24 10:18 Fluconazole 100 Mg Tablet PO 08/11/24 14:59 400 mg QDAY NANDO Administration Levalbuterol HCl 0.63 mg 08/03/24 18:16 Levalbuterol Rt 0.63 Mg/3 Ml Nebu INH 09/02/24 18:15 Q8HRRT PRN SHORTNESS OF BREATH OR WHEEZE Metoprolol Succinate 100 mg 08/07/24 09:00 08/08/24 10:17 Metoprolol Succinate Xl 25 Mg Tabcr PO 09/06/24 08:59 100 mg QDAY NANDO Administration Ondansetron HCl 4 mg 08/03/24 17:25 Ondansetron Inj 2 Mg/Ml Inj 2 Ml IV 09/02/24 17:24 Q6H PRN NAUSEA OR VOMITING Protocol Sacubitril/Valsartan 1 tab 08/07/24 21:00 08/08/24 10:18 Sacubitril 24 Mg/Valsartan 26 Mg Tablet PO 09/06/24 20:59 1 tab BID NANDO Administration Spironolactone 12.5 mg 08/05/24 10:30 08/08/24 10:17 Spironolactone 25 Mg Tablet PO 09/04/24 10:29 12.5 mg BID NANDO Administration Plan Mr. Gan is a 64-year-old male with no past medical history presented to the ED complaining of shortness of breath and cough for the past 4 days for which he went to a clinic and was prescribed antibiotics patient states he took the antibiotics twice yesterday and once this morning without relief and continued to have worsening cough and noticed streaks of blood in his sputum. Pt is admitted to the hospital for further management of community acquired pneumonia. #A-fib with RVR, new onset. #HFrEF, EF 40%, newly diagnosed. 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 -Overnight on 08/04 pt developed a-fib with RVR with HR above 140's -EKG is evident pf afib wit RVR with rate of 125 -Pt is given dose of diltiazam PO overnight -CHADs-VAS score 2, at this time will defer anticoagulation -Echo done on 08/04: Normal size LV with MIld global hypokinesis LVEF 40% Normal RV size and fucntion RVSP mildly elevated 45 mmHg LA is moderatley dilated Mild MAC with moderate 2+ mitral regurgitation Mild tricuspid regurgitation AOV scelerosis with mild aortic regurgitation Diltiazam drip is turned of 08/06 Plan: -Metoprolol succinate 100 mg daily to BID and amiodarone 200 mg BID. -continue entresto and spironolactone -Consulted Cardio, and following -Eliquis 5mg BID for anticoagulation in the setting of A-fib. #Sepsis 2/2- resolved. #Community acquired pneumonia. #Cocci pneumonia . #Hemoptysis - resolved. -Pt is complaining of SOB, cough for 4 days, he noticed streaks of blood today in his sputum -Pt meets sepsis criteria with SIRS 2/4 tachycardia, and fever plus end organ damage, evidence of CHRIS -Lactic acid 1.4, procalcitonin 0.26 -In the ED pt received rocephin 1gm and 1L bolus fluid -CXR- Bilateral pneumonia, significant in the right lung -Cocci IgM positive -Influenza, RSV, PPD and covid negative. Plan: -Blood and sputum cultured ordered -Supplemental oxygen PRN -continue on cefuroxime 250 twice daily 08/06- -Flucanazole 400mg daily 07/04- -ID following, appreciate recommendations. #Acute Kidney injury - resolved. -On admission Cr 1.2 and baseline 1.0, likely secondary to decreased oral intake -IV fluids given -Will continue to monitor daily CMP. -Avoid nephrotoxic and renally dose medications. #Fatty liver. #Transiminitis - improving. #Hyerbillirubinemia. -On Admission Total billirubin 1.7 and AST 81 and ALT 59. -Pt denies alcohol use or RUQ pain. -Liver US - showed pancreatic head prominent 3.7cm. -CT of abdomen/Pelvis did not show pancreatic mass or peripancreatic edema. -will continue to monitor daily labs. Health Maintenance Disposition: telemetry for management and monitoring of afib DVT Prophylaxis: pt is on eliquis GI Prophylaxis: not indicated Diet: Cardiac Diet Lines: Peripheral lines Code status: Full Assessment and plan discussed with my attending physician Dr. Huang. Uzair Wilkinson MD, PGY 2. Disclaimer: This note was dictated by speech recognition. Minor errors in solderer production line may be present due to voice recognition software. Attending Provider Attestation/Addendum I attest that I was physically present for the evaluation, physical examination, lab and imaging review of the patient with the residents. I discussed the case with the residents and agree with the findings and plans of care as documented above. At bedside, patient appears comfortable, denies any new complaints. Denies chest pain, palpitations, shortness of breath. Switched from amiodarone drip to oral amiodarone. Heart rate appears to have slightly improved, mostly ranging from 90s to 100's but still spiking up to 130s. Discussed with cardiology, recommended to increase the dosing of metoprolol from from 50-100 twice daily. Family at bedside, explained in detail about ongoing medical management and further plans, they showed understanding and agree with the plan. Awaiting heart rate to stabilize. Amanda Huang MD
--- NOTE | 2024-08-08 18:56 | ESPR_ITS ---
RE: CHANDAN MICHAELS : 1960 DATE OF SERVICE: 08/08/2024 LOCATION: Room 260. 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 The patient was started on amiodarone and did not convert to sinus rhythm, but heart rate is still on the faster side. Beta-pema dose was increased to 50 mg twice daily and now will be increased to 100 mg twice daily for better rate control. He is asymptomatic. His heart rate is about 105-110 beats per minute at rest. asymptomatic. PHYSICAL EXAMINATION: Neck: Supple. Lungs: Decreased breath sounds with no rales. Heart: S1 and S2 irregular. Abdomen: Thin and soft. Extremities: Mild edema. Genitourinary and Rectal: Not performed. LABORATORY DATA: Showed white count is normal and hemoglobin and hematocrit are essentially normal. Renal function is normal as well. There is slight elevation of bilirubin level, otherwise unremarkable. IMPRESSION: 1. Atrial fibrillation with rapid ventricular response, now reasonably controlled well. 2. Coccidioidomycosis pneumonia. RECOMMENDATIONS: Continue metoprolol 100 mg twice daily and amiodarone 200 mg twice daily. Once the rate is controlled reasonably well at 100 plus or minus 10, the patient can be discharged home. I will also recommend Eliquis 5 mg b.i.d. After discharge, I will see him in 1-2 weeks. If he remains in atrial fibrillation, we will consider cardioversion after 3 weeks of anticoagulation. DT: 16:38:02 TT: 18:50:00 Ref: [id number] - TID: [id number]
[2024-08-09] VITALS (7 sets, daily range): BP systolic 120–134; BP diastolic 82–100; PULSE 73–97; RESP 15–97; TEMP 36.1–36.2; O2SAT 96–100
[2024-08-09] MEDS: METOPROLOL SUCCINATE XL 25 MG TABCR 100 MG PO (08:36)
[2024-08-09] MEDS: FLUCONAZOLE 100 MG TABLET 400 MG PO (08:37)
[2024-08-09] MEDS: AMIODARONE HCL 200 MG TABLET PO (08:37)
[2024-08-09] MEDS: DAPAGLIFLOZIN PROPANEDIOL 5 MG TABLET PO (08:37)
[2024-08-09] MEDS: APIXABAN 2.5 MG TABLET 5 MG PO (08:37)
[2024-08-09] MEDS: SPIRONOLACTONE 25 MG TABLET 12.5 MG PO (08:37)
[2024-08-09] MEDS: cefuroxime axetiL 250 MG TABLET PO (08:38)
[2024-08-09] MEDS: SACUBITRIL 24 MG/VALSARTAN 26 MG TABLET 1 TAB PO (08:38)
--- NOTE | 2024-08-09 09:49 | ESDS_ITS ---
Planned Discharge Date 08/09/24 DS: Providers Provider Date of admission: 08/03/24 17:25 Primary care physician: Physician No Primary/Family Admitting Provider: Amanda Huang MD Attending Provider on Admission: Amanda Huang MD Consults: 08/03/24 19:46 Referral Infection Control Urgent Comment: Reason for Infection Control Referral: Admitted with Diarrhea 08/03/24 19:47 Referral Registered Dietitian Urgent Comment: Referral Respiratory Therapy Urgent Comment: 08/04/24 14:54 Consult to Infectious Diseases Routine Comment: Consulting Provider: Jagdish Ruiz 08/05/24 13:39 Consult to Cardiology Stat Comment: new onset CHF and Afib Consulting Provider: Marcial Rees Attending Provider on DC: Samaria Moody MD Discharging Provider: Samaria Moody MD DS: Diagnosis Problem List Completed Was Problem List Reviewed/Reconciled?: Yes Hospital Course Hospital Course Hospital course: Mr. Gan is a 64-year-old male with no past medical history presented to [facility] ED on 08/03/2024 complaining of shortness of breath and cough. On admission patient was found to have bilateral pneumonia significant in the right lung on chest x-ray and patient was started on IV antibiotics including Rocephin and azithromycin. Patient was also tested for RSV and TB which were negative including COVID and patient was tested for cocci which IgM was positive patient was started on fluconazole 400 mg daily and infectious disease specialist Dr Ruiz was consulted. On the first day of hospitalization patient had a rapid response for A-fib with RVR with a heart rate in the 140s patient was started on diltiazem drip as well as transition to p.o. diltiazem with metoprolol however patient's heart rate was not controlled with these medications and patient continued to be in A-fib with RVR. Scrap Separator Dr. Rees was consulted and patient was placed on amiodarone drip with increase metoprolol patient however continued to be in A-fib with RVR patient's stay in the hospital was extended due to inability to rate control. During hospitalization echo was also ordered which showed global hypokinesis with left ventricular EF 40% and left atrium is moderately dilated, mild MAC with moderate 2+ mitral regurgitation and mild tricuspid regurgitation and AOV sclerosis with mild aortic regurgitation. Patient's metoprolol was increased to 100 mg twice daily and transition to oral amiodarone 200 mg twice daily which converted patient into A-fib rate controlled. Patient was also started on Eliquis twice daily due to [id number] score being 2 for the purpose of anticoagulation to prevent stroke and A-fib. Patient is started on goal- directed medical therapy with Entresto, spironolactone, metoprolol and dapaglifl ozin. During hospitalization patient completed the course of antibiotics patient is rate controlled, saturating on room air and hemodynamically stable to be discharged home with medications as well as fluconazole for cocci pneumonia. During hospitalization patient was also found to have slightly elevated T. bili, AST and ALT however patient denied any abdominal pain specifically in the right upper quadrant and ultrasound of the liver showed fatty liver patient is advised to follow-up outpatient with primary care for surveillance and further workup. Patient is advised if his symptoms return or worsen to promptly return to the ED. Patient is also recommended to see small animal veterinarian Dr. Rees for further workup including cardiac catheterization. Discharge Recommendations -Follow up with primary care within 1 week after discharge -Follow up with small animal veterinarian Dr. Marcial Rees outpatient with in 1 week -You have been prescribe several medications for your heart including: Entresto, Spironolactone, dapagliflozin, AMiodarone, Metoprolol. You also have been prescribe a blood thinner for A-fib called Eliquis. Please avoid falling and injuries as it can cause bleeding. If you fall or have an injury please report it to your primary care or come to the ED. Please take remainder of you medications for your heart as prescribed. -For Valley fever you have been prescribed a medication called Flucanazole. Continue the medication for 3 months and follow up with infectious disease specialist Dr. Ruiz outpatient. -If your symptoms return or worsen, return to the ED promptly Hospitalization Diagnosis #A-fib with RVR, new onset- rate controlled #HFrEF, EF 40%, newly diagnosed. 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 #SepsisSepsis 2/2- resolved. #Community acquired pneumonia. #Cocci pneumonia . #Hemoptysis - resolved. #Acute Kidney injury - resolved. #Fatty liver. #Transiminitis - improving. #Hyerbillirubinemia. Assessment and plan discussed with my attending physician Dr. Reina Moody (PGY-1)- Internal medicine resident Time Spent with Patient Time attestation: Total time spent providing and/or coordinating discharge services: Time spent: Less than 30 minutes Exam Vital Signs Temp Pulse Resp BP Pulse Ox O2 Del Method O2 Flow Rate 97.0 F 90 18 120/95 H 100 Room Air 2 08/09/24 08:00 08/09/24 08:37 08/09/24 08:00 08/09/24 08:37 08/09/24 08:00 08/09/24 08:00 08/08/24 16:00 Narrative Exam GENERAL: A&Ox3 . elderly obese male, laying in bed, saturating on room air, not in acute distress NEURO: no focal neurological deficits noted HEENT: Atraumatic, Normocephalic. mucous membranes moist. Eyes open, symmetrical, & clear HEART: Normal Heart Sounds LUNGS: clear breath sounds heard bilaterally ABDOMEN: soft, non-distended, non-tender, bowel sounds heard, no guarding or rebound tenderness SKIN: No Rash or ecchymoses EXTREMITIES: No edema, tenderness, able to move all 4 extremities, pedal pulses palpated Discharge Plan Plan Patient Disposition: HOME (Self Care) Care Plan Goals: -Follow up with primary care within 1 week after discharge -Follow up with small animal veterinarian Dr. Marcial Rees outpatient with in 1 week -You have been prescribe several medications for your heart including: Entresto, Spironolactone, dapagliflozin, AMiodarone, Metoprolol. You also have been prescribe a blood thinner for A-fib called Eliquis. Please avoid falling and injuries as it can cause bleeding. If you fall or have an injury please report it to your primary care or come to the ED. Please take remainder of you medications for your heart as prescribed. -For Valley fever you have been prescribed a medication called Flucanazole. Continue the medication for 3 months and follow up with infectious disease specialist Dr. Ruiz outpatient. -If your symptoms return or worsen, return to the ED promptly Prescriptions/Referrals Prescriptions/Med Rec: New amiodarone 200 mg Tablet 200 mg PO BID Qty: 60 3RF spironolactone 25 mg Tablet 12.5 mg PO BID Qty: 60 3RF Entresto 24-26 mg Tablet 1 tab PO BID Qty: 60 3RF metoprolol succinate 100 mg tablet extended release 24 hr 100 mg PO BID Qty: 60 3RF fluconazole 200 mg tablet 400 mg PO QDAY Qty: 60 3RF Eliquis 5 mg tablet 5 mg PO BID Qty: 60 3RF dapagliflozin propanediol 10 mg tablet 10 mg PO QDAY Qty: 30 3RF Discontinued lisinopril 10 mg tablet 10 mg PO QDAY azithromycin [Zithromax] 250 mg tablet See Rx Instructions .ROUTE .COMPLEX Rx Instructions: For 250 mg dose pack: take 500 mg today (day 1), then 250 mg for 4 days (days 2-5) Referrals: Jagdish Ruiz MD [Physician] - No Primary/Family,Physician [Primary Care Provider] - Marcial Rees MD [Physician] - Patient/Caregiver Discharge Instructions Education Materials: AFL/Afib, Stroke Prevent Live W Atrial Fib Print Language: Yoruba Stand Alone Forms: Radha Award Info., Patient Portal Info Letter Discharge Order Discharge Orders: Discharge (Routine); Ordered 08/09/24 Ordered By: Samaria Moody Quality Discharge Quality Measures VTE prophylaxis Attestestation MD Attestation I attest that I was physically present for the evaluation, physical examination, lab and imaging review of the patient with the residents. I discussed the case with the residents and agree with the findings and plans of care as documented above. Amanda Huang MD
--- NOTE | 2024-08-09 11:27 | ESPR_ITS ---
Subjective Subjective Interval history: called [facility]. they state Exam Vital Signs Temp Pulse Resp BP Pulse Ox O2 Del Method O2 Flow Rate 97.0 F 90 18 120/95 H 100 Room Air 2 08/09/24 08:00 08/09/24 08:37 08/09/24 08:00 08/09/24 08:37 08/09/24 08:00 08/09/24 08:00 08/08/24 16:00 Narrative Exam limited eval Objective - Internal Medicine Labs 08/06/24 05:26 08/08/24 05:32 Assessment & Plan A&P Narrative probable valley fever, off O2 now. pneumonia , procal neg. stay with the flucon 400/day moved to all po home at your discretion I can see in clinic but a copy of the cxr and cocci at [facility] are needed as well as a referral from outpt primary. ok to send home on all po regimen and have primary contact the reference lab for formal dx Time Spent With Patient Time: Total time spent is greater than 50% in coordination of care (as documented) at patient's floor/unit and/or counseling patient:
--- NOTE | 2024-08-09 13:54 | PC.SS ---
SS follow up note; Patient will discharge home today.
== END 2024-08-09 12:30 | disposition home or self-care (01) | DRG 871 ==
LOC: SERX 16:44 → SERHOLD 18:02 → S3NX 08-04 06:05 → S2NX 08-04 13:03
PROVIDERS: Internal Medicine Infectious Disease; Nurse Practitioner Primary Care; Student in an Organized Health Care Education/Training Program; Admitting Provider Student in an Organized Health Care Education/Training Program; Emergency Provider Emergency Medicine; Visit Provider Student in an Organized Health Care Education/Training Program
DX: A41.9 Sepsis, unspecified organism (principal); J18.9 Pneumonia, unspecified organism; R04.2 Hemoptysis; N17.9 Acute kidney failure, unspecified; B38.0 Acute pulmonary coccidioidomycosis; I50.20 Unspecified systolic (congestive) heart failure; I48.19 Other persistent atrial fibrillation; J11.1 Influenza due to unidentified influenza virus with other respiratory manifestations; R65.20 Severe sepsis without septic shock; I48.91 Unspecified atrial fibrillation; I34.0 Nonrheumatic mitral (valve) insufficiency; I11.0 Hypertensive heart disease with heart failure; K76.0 Fatty (change of) liver, not elsewhere classified; Z87.01 Personal history of pneumonia (recurrent); Z79.899 Other long term (current) drug therapy; Z11.52 Encounter for screening for COVID-19; Z60.3 Acculturation difficulty
CPT/HCPCS: 36415; 71045; 71046; 74177; 76705; 80053; 80061; 83036; 83605; 83735; 83880; 84100; 84145; 84443; 85025; 86171; 86480; 86580; 86635; 86703; 86803; 87040; 87205; 87400; 87634; 87811; 93005; 93225; 93306; 99291; A4649; J0283; J0456; J0696; J1643; J3475; J3490; J7030; J7040; J7050; J8499; Q9967; A9270

== ENCOUNTER 2024-08-25 10:09 | Inpatient (IN) | payer BC, SELFPAY ==
[2024-08-25] VITALS (8 sets, daily range): BP systolic 132–170; BP diastolic 72–86; PULSE 57–71; RESP 15–24; TEMP 36.1–36.7; O2SAT 97–100; BMI 31.8
--- NOTE | 2024-08-25 10:25 | XR_ITS ---
Examination: PA lateral chest 2 views TECHNIQUE: Upright PA lateral chest 2 views Exam date and time: August 25, 2024 1037 hours Comparison August 03, 2024 INDICATIONS: Chest pain today. FINDINGS: Normal heart size The pneumonia on the film of July 2024 has cleared No current pneumonia or pulmonary edema The osseous structures are intact IMPRESSION: No active disease
--- NOTE | 2024-08-25 10:25 | EKG_ITS ---
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
--- NOTE | 2024-08-25 10:26 | PD.EDRME ---
Rapid Medical Screening Exam RME Arrival date/time: 08/25/24 10:09 64-year-old male presents to the emergency department for complaint for abnormal lab work sent by PCP for further evaluation Chief Complaint: Recheck/Abnormal Lab/Rx Time Seen by Provider: 08/25/24 10:23 Vital signs: Vital Signs Temperature 98.0 F 08/25/24 10:16 Pulse Rate 68 08/25/24 10:16 Respiratory Rate 18 08/25/24 10:16 Blood Pressure 163/84 H 08/25/24 10:16 Pulse Oximetry (%) 98 08/25/24 10:16 Oxygen Delivery Method Room Air 08/25/24 10:16
[2024-08-25 10:57] LABS: Basophils # (Auto) 0.1 Thou/mm3 (0.0-0.2); Basophils % (Auto) 1 % (0-2.5); Eosinophils # (Auto) 0.1 Thou/mm3 (0.0-0.5); Eosinophils % (Auto) 2 % (0-10); Immature Granulocytes % (Auto) 0 % (0-0); Immature Granulocytes Auto 0.03 Thou/mm3 (0.00-0.00); Nucleated Red Blood Cell % 0 /100 WBC (0)
[2024-08-25 10:58] LABS: Hematocrit 45.3 % (41.0-53.0); Hemoglobin 15.5 g/dL (13.5-16.0); Lymphocytes % (Auto) 24 % (10-50); Mean Corpuscular HGB Conc 34.2 g/dl (31.0-37.0); Mean Corpuscular Volume 93 fL (80-100); Monocytes # (Auto) 0.9 Thou/mm3 (0.0-0.8); Monocytes % (Auto) 11 % (0-12); Neutrophils # (Auto) 5.1 Thou/mm3 (1.8-7.7); Neutrophils % (Auto) 62 % (37-80); Platelet Count 155 Thou/mm3 (140-440); RDW Standard Deviation 43.6 fL (35.1-43.9); Red Blood Count 4.85 Miln/mm3 (4.50-5.90); White Blood Count 8.2 Thou/mm3 (3.8-10.6)
[2024-08-25 11:07] LABS: INR 1.1 (0.9-1.3); Partial Thromboplastin Time 27.1 Seconds (22.0-36.0); Prothrombin Time 11.7 Seconds (9.0-12.2)
[2024-08-25 11:17] LABS: Alanine Aminotransferase 32 U/L (10-49); Albumin, Serum 4.3 gm/dL (3.4-4.8); Albumin/Globulin Ratio 1.2 (1.2-2.2); Alkaline Phosphatase 71 U/L (46-116); Anion Gap 8 (7-16); Aspartate Amino Transferase 29 U/L (0-34); BUN/Creatinine Ratio 17 Ratio (12-20); Bilirubin,Total 1.2 mg/dL (0.3-1.2); Blood Urea Nitrogen 42 mg/dL (9-23); Calcium 9.4 mg/dL (8.3-10.6); Calcium (Corrected) 9.4 mg/dL (8.5-10.1); Carbon Dioxide 17.1 mMol/L (20.0-31.0); Chloride 108 mMol/L (98-107); Creatinine (Component) 2.5 mg/dL (0.6-1.3); Estimated Creatinine Clearance 34.9 mL/min (>60); Globulin 3.7 gm/dL (2.3-3.5); Glucose 120 mg/dL (74-106); Magnesium 2.3 mg/dL (1.6-2.6); Osmolality,Calculated 277 (275-295); Sodium 133 mMol/L (136-145); Troponin I < 0.020 ng/mL (0.0-0.045); eGFR 28 See Note
--- NOTE | 2024-08-25 11:54 | PD.EDRECHK ---
ED Recheck Abnl Lab Rx-RME/HPI General Chief Complaint: Recheck/Abnormal Lab/Rx Stated Complaint: K+ HIGH Time Seen by Provider: 08/25/24 10:23 Arrival date/time: 08/25/24 10:09 RME / HPI RME / HPI narrative: 64-year-old male patient with a recent diagnosis of A-fib, cocci pneumonia, heart failure with ejection fraction of 40%, was sent to us by PCP for evaluation regarding elevated potassium. Apparently patient had a follow-up few days ago and was advised to come to the emergency room for elevated potassium. Currently patient still complaining of cough, described as nonproductive, severity mild. Currently taking Diflucan, Eliquis, and spironolactone. Patient denies any fever denies any chest pain denies any other complaints no medications taken prior to arrival. Related Data Previous Rx's ?Medication ?Instructions ?Recorded amiodarone 200 mg tablet 200 mg PO BID #60 tabs 08/09/24 apixaban 5 mg tablet (Eliquis) 5 mg PO BID #60 tabs 08/09/24 dapagliflozin propanediol 10 mg 10 mg PO QDAY #30 tabs 08/09/24 tablet fluconazole 200 mg tablet 400 mg (2 x 200 mg) PO QDAY #60 08/09/24 tabs metoprolol succinate 100 mg 100 mg PO BID #60 tabs 08/09/24 tablet,extended release 24 hr sacubitril 24 mg-valsartan 26 mg 1 tab PO BID #60 tabs 08/09/24 tablet (Entresto) spironolactone 25 mg tablet 12.5 mg (1/2 x 25 mg) PO BID #60 08/09/24 tabs Allergies Allergy/AdvReac Type Severity Reaction Status Date / Time No Known Allergies Allergy Verified 08/03/24 11:56 Review of Systems Review of Systems Narrative Review of Systems: Review of system reviewed and within normal limits except mentioned in HPI ED Exam Narrative Physical exam: VITAL SIGNS: Reviewed. GENERAL APPEARANCE: Alert and interactive, follows commands, no acute distress, HEAD AND FACE: Non-traumatic. ENT: PERRL, pink conjunctivitis, eyelid no trauma, Mucous membrane moist. NECK: Supple, nontender, no nuchal rigidity. CHEST: No tenderness, no crepitus, no paradoxical movement, no retractions. LUNGS: Clear, well ventilated, symmetric, no rales, no wheezing, no ronchi, no stridor, good breath sounds bilaterally. HEART: Regular rate, regular rhythm, no murmur, no gallops. ABDOMEN: Soft, positive bowel sounds, nondistended, no guarding, nontender, no rebound, no masses, RECTAL: Deferred. GENITAL: Deferred. NEUROLOGICAL: Gross motor function intact sensory function intact, Appropriate for age. MUSCULOSKELETAL: low back nontender, full range of motion. EXTREMITIES: Nontender, full range of motion. SKIN: Color pink, dry, no rash, no lacerations, no abrasions, no contusions. LYMPHATICS: Deferred. Course Quality Measures none Orders Category Date Time Status Bedside Blood Glucose Q2HX3 Care 08/25/24 11:47 Active COVID-19 Screening Questionnaire NOW Care 08/25/24 12:11 Active Decision to Admit X1 Care 08/25/24 12:11 Active EKG (ED ONLY) *Do not use* NOW Care 08/25/24 10:25 Completed Consult to Nephrology Stat Cons 08/25/24 11:57 Ordered EKG (ED Only) Stat Exams 08/25/24 10:25 Draft XR chest 2V Stat Exams 08/25/24 10:25 Completed B-Type Natriuretic Peptide Stat Lab 08/25/24 10:46 Ordered CBC Stat Lab 08/25/24 10:46 Completed Comprehensive Metabolic Panel Stat Lab 08/25/24 10:46 Completed Magnesium Stat Lab 08/25/24 10:46 Completed Partial Thromboplastin Time Stat Lab 08/25/24 10:46 Completed Prothrombin Time with INR Stat Lab 08/25/24 10:46 Completed Troponin I Stat Lab 08/25/24 10:46 Completed ALBUTEROL RT 0.5ml [Proventil Rt 0.5ml] Med 08/25/24 11:54 Discontinued 7.5 mg INH X1 ONE Calcium Chloride 10% Abboject Med 08/25/24 11:47 Discontinued 10 ml IV X1 ONE Dextrose 10%-Water 1000 ml [D10w 1000 ml] 1,000 ml Med 08/25/24 12:00 Active IV 100 mls/hr Dextrose 50% Syr [D50w Syringe Abboject] Med 08/25/24 11:47 Active 25 ml IV Q15MIN PRN Dextrose 50% Syr [D50w Syringe Abboject] Med 08/25/24 11:47 Active 50 ml IV Q15MIN PRN Furosemide [Lasix Inj] Med 08/25/24 11:47 Discontinued 40 mg IVP X1 ONE Glucagon Inj Med 08/25/24 11:47 Active 1 mg IM Q15MIN PRN Insulin Regular Med 08/25/24 11:47 Discontinued 10 unit IV X1 ONE Sod Polystyrene Sulfon Susp [Kayexalate Susp] Med 08/25/24 11:47 Discontinued 30 gm PO X1 ONE Sodium Chloride Rt Zulema 0.9% [NS Rt Zulema 0.9%] Med 08/25/24 11:54 Active 3 ml INH PRN PRN Vital Signs Vital signs: Vital Signs Temperature 98.0 F 08/25/24 10:16 Pulse Rate 68 08/25/24 10:16 Respiratory Rate 18 08/25/24 10:16 Blood Pressure 163/84 H 08/25/24 10:16 Pulse Oximetry (%) 98 08/25/24 10:16 Oxygen Delivery Method Room Air 08/25/24 10:16 Recheck / Abnormal Lab / Rx MDM Narrative MDM Narrative:: 64-year-old male patient with a recent diagnosis of A-fib, cocci pneumonia, heart failure with ejection fraction of 40%, hypertension was sent to us by PCP for evaluation regarding elevated potassium. Apparently patient had a follow-up few days ago and was advised to come to the emergency room for elevated potassium. Currently patient still complaining of cough, described as nonproductive, severity mild. Currently taking Diflucan, Eliquis, and spironolactone. Patient denies any fever denies any chest pain denies any other complaints no medications taken prior to arrival. I personally reviewed and interpreted the x-ray of this patient. There is no acute abnormalities found, no infiltrates no pneumothorax no hemothorax normal chest x-ray. Review of other structures was without significant abnormal findings also. I additionally reviewed the radiologist report and agree with the interpretation. EKG showed sinus rhythm, ventricular rate of 68 bpm, NE interval 190 MS, QRS duration 109 MS, no ST segment elevation depression noted. Patient CBC showed no abnormality, CMP significant for sodium 133, potassium 7.0 chloride 108 carbon oxide of 17.1 creatinine 2.5 BUN of 42. Patient received albuterol breathing treatment calcium chloride Lasix IV insulin 10 units IV and Kayexalate Patient data External records reviewed:: None Clinical information provided by:: patient Social determinants that could affect healthcare access:: none Patient has the following chronic illnesses:: Chronic A-fib cocci pneumonia heart failure hypertension How is presenting disease/condition affected by chronic disease/condition?: exacerbated by Evaluation data The following diagnostics were reviewed and interpreted by me:: lab results, radiology exam(s) and EKG tracing(s) Lab and/or radiology exams considered but not ordered:: None Interpretation Summary: See results MDM Medications / Prescriptions Medications or Prescriptions considered but not ordered:: None Medication administrations:: Medication Administration History Dextrose (Dextrose 50%-Water Inj 50 Ml Syringe) 25 ml IV Q15MIN PRN PRN Reason: BG 50-70 responsive npo pt Stop: 09/24/24 11:46 Dextrose (Dextrose 50%-Water Inj 50 Ml Syringe) 50 ml IV Q15MIN PRN PRN Reason: BG <50 OR BG <70 & pt unresponsive Stop: 09/24/24 11:46 Glucagon (Glucagon Inj 1 Mg Vial) 1 mg IM Q15MIN PRN PRN Reason: BG <70, and no IV access Dextrose (D10w 1000 Ml) 1,000 mls @ 100 mls/hr IV .Q10H NANDO Stop: 08/25/24 21:59 Sodium Chloride (Sodium Chloride Rt Zulema 0.9% 3 Ml Nebu) 3 ml INH PRN PRN PRN Reason: SOLN Stop: 09/24/24 11:53 Last Admin: 08/25/24 12:11 Dose: 3 ml Documented By: JORGE Discontinued Medications Albuterol (Albuterol Rt 2.5 Mg/0.5 Ml Nebu) 7.5 mg INH X1 ONE Stop: 08/25/24 11:55 Last Admin: 08/25/24 12:10 Dose: 7.5 mg Documented By: JORGE Calcium Chloride (Calcium Chloride 10% Inj 10 Ml Syrg) 10 ml IV X1 ONE Stop: 08/25/24 11:48 Furosemide (Furosemide Inj 10 Mg/Ml Vial 2 Ml) 40 mg IVP X1 ONE Stop: 08/25/24 11:48 Insulin Human Regular (Insulin Hum Regular 1 Unit/0.01 Ml (Per Unit)) 10 unit IV X1 ONE Stop: 08/25/24 11:48 Sodium Polystyrene Sulfonate (Sod Polystyrene Sulfon Susp 15 Gm/60 Ml Btl) 30 gm PO X1 ONE Stop: 08/25/24 11:48 Albuterol calcium chloride Lasix insulin and Kayexalate Consultations Consultation(s) initiated? (list below): No Diagnosis Recheck Differential Diagnosis: other (CHRIS, hyperkalemia, dehydration) Most likely diagnosis given after review of the tests above:: CHRIS, hyperkalemia Admission Indicated Admission indicated?: indicated Explain why admission is indicated or not indicated:: For further management Admission Request Was there a request for admission?: Yes Admission Attestation Admission request attestation: Discussed case with Hospitalist service regarding admission. Discussed patients ED course, exam findings, labs, and radiology results. The Hospitalist [agrees,] to accept the patient for admission. Disposition Plan Disposition Plan: Admit Discharge Plan Plan Patient Disposition: Admit Acute Care w/in Hospital Disposition Comment: stable Prescriptions/Referrals Prescriptions/Med Rec: No Action amiodarone 200 mg Tablet 200 mg PO BID Qty: 60 3RF spironolactone 25 mg Tablet 12.5 mg PO BID Qty: 60 3RF Entresto 24-26 mg Tablet 1 tab PO BID Qty: 60 3RF metoprolol succinate 100 mg tablet extended release 24 hr 100 mg PO BID Qty: 60 3RF fluconazole 200 mg tablet 400 mg PO QDAY Qty: 60 3RF Eliquis 5 mg tablet 5 mg PO BID Qty: 60 3RF dapagliflozin propanediol 10 mg tablet 10 mg PO QDAY Qty: 30 3RF Referrals: Shayna Grimm PA-C [Primary Care Provider] - In 1 week Problem List Clinical Impression: CHRIS (acute kidney injury), Acute hyperkalemia Patient/Caregiver Discharge Instructions Print Language: Thai Stand Alone Forms: Radha Award Info., Patient Portal Info Letter
[2024-08-25] MEDS: SOD POLYSTYRENE SULFON SUSP 15 GM/60 ML BTL 30 GM PO (12:05)
[2024-08-25] MEDS: ALBUTEROL RT 2.5 MG/0.5 ML NEBU 7.5 MG INH (12:10)
[2024-08-25] MEDS: SODIUM CHLORIDE RT SOL 0.9% 3 ML NEBU INH (12:11)
[2024-08-25] MEDS: INSULIN HUM REGULAR 1 UNIT/0.01 ML (PER UNIT) 10 UNIT IV (12:13)
[2024-08-25] MEDS: FUROSEMIDE INJ 10 MG/ML VIAL 2 ML 40 MG IVP (12:13)
[2024-08-25] MEDS: CALCIUM CHLORIDE 10% INJ 10 ML SYRG IV (12:14)
[2024-08-25] MEDS: DEXTROSE 10%-WATER 1000 ML 1,000 ML 100 ML IV (12:14)
[2024-08-25 12:42] LABS: B-Type Natriuretic Peptide 38 pg/mL (0-100)
[2024-08-25 14:55] LABS: Albumin, Serum 4.2 gm/dL (3.4-4.8); Anion Gap 10 (7-16); BUN/Creatinine Ratio 17 Ratio (12-20); Blood Urea Nitrogen 42 mg/dL (9-23); Calcium 10.2 mg/dL (8.3-10.6); Calcium (Corrected) 10.2 mg/dL (8.5-10.1); Carbon Dioxide 17.5 mMol/L (20.0-31.0); Chloride 107 mMol/L (98-107); Creatinine (Component) 2.5 mg/dL (0.6-1.3); Estimated Creatinine Clearance 34.9 mL/min (>60); Glucose 125 mg/dL (74-106); Osmolality,Calculated 279 (275-295); Phosphorous 4.3 mg/dL (2.4-5.1); Potassium 5.6 mMol/L (3.4-5.1); Sodium 134 mMol/L (136-145); eGFR 28 See Note
--- NOTE | 2024-08-25 15:18 | PD.RESHP ---
Documentation for date of: 08/25/24 [facility] History of Present Illness Chief complaint: Hyperkalemia History of present illness: 64 y/o M with PMHx significant for hypertension, A-fib, CHF, cocci pneumonia on 08/09 presented after being found to have hyperkalemia and CHRIS on outpatient labs. Patient was started on spironolactone 2 weeks ago. Patient otherwise feels well, denies fevers, chills, chest pain, palpitations, nausea, vomiting, dysuria. ED COURSE: Labs significant for: Potassium 7.0, serum bicarb 17, BUN 42, creatinine 2.5, EGFR 28. Previous renal function WNL. Imaging significant for: EKG without T wave changes, sinus rhythm. Chest x-ray unremarkable. Patient received albuterol 1.5 mg, Lasix 40 x 1, 10 insulin, 1 L dextrose, calcium chloride 10 mL in the ED. Repeat renal panel showed improving potassium, 5.6. PMH: A-fib, hypertension, CHF, cocci pneumonia PSH: Appendectomy SH: Quit smoking 50 years ago. Drinks 1 tallboy per day, quit 3 months ago. Denies recreational drug use. Allergies:?NKDA Medications: Eliquis, amiodarone, dapagliflozin, fluconazole, metoprolol succinate, Entresto, spironolactone Review of Systems Review of Systems Systems Reviewed: All systems reviewed, normal except as documented Past Medical History Past Medical History Comments PMH COMMENT: PMH: A-fib, hypertension, CHF, cocci pneumonia PSH: Appendectomy SH: Quit smoking 50 years ago. Drinks 1 tallboy per day, quit 3 months ago. Denies recreational drug use. Allergies:?NKDA Medications: Eliquis, amiodarone, dapagliflozin, fluconazole, metoprolol succinate, Entresto, spironolactone Exam Vital Signs Temp Pulse Resp BP Pulse Ox O2 Del Method 98 F 57 L 15 170/77 H 100 Oxy Mask 08/25/24 12:29 08/25/24 12:08/25/24 12:29 08/25/24 12:29 08/25/24 12:08/25/24 12:29 Narrative Exam PE: Gen: Well-developed and well-nourished. HEENT: NCAT, PERRLA, EOMI, MMM, anicteric conjunctivae. CVS: normal S1 and S2. RRR. No M/R/G. Resp: CTA B/L. No rhonchi, rales, crackles or wheezing. Abd: soft, non-tender, non-distended. MSK: Good ROM in BUE & BLE. No edema or rash. Neuro: CN II-XII grossly intact. Strength 5/5 in BUE & BLE. Alert and oriented x3. Psych: appropriate mood and affect. Results: Labs 08/26/24 05:35 08/26/24 05:35 Labs: Short CBC 08/25/24 Range/Units 10:46 WBC 8.2 (3.8-10.6) Thou/mm3 Hgb 15.5 (13.5-16.0) g/dL Hct 45.3 (41.0-53.0) % Plt Count 155 (140-440) Thou/mm3 BMP 08/25/24 08/25/24 10:46 14:25 Sodium 133 L 134 L Potassium 7.0 H* 5.6 H D Chloride 108 H 107 Carbon Dioxide 17.1 L 17.5 L BUN 42 H 42 H Creatinine 2.5 H 2.5 H Glucose 120 H 125 H Calcium 9.4 10.2 Cardiac Enzymes 08/25/24 Range/Units 10:46 Troponin I < 0.020 (0.0-0.045) ng/mL Liver Function 08/25/24 08/25/24 Range/Units 10:46 14:25 Total Bilirubin 1.2 (0.3-1.2) mg/dL AST 29 (0-34) U/L ALT 32 (10-49) U/L Alkaline Phosphatase 71 (46-116) U/L Albumin 4.3 4.2 (3.4-4.8) gm/dL Quality Measures Quality Measures VTE prophylaxis Medications Home Medications and Allergies Allergies Allergy/AdvReac Type Severity Reaction Status Date / Time No Known Allergies Allergy Verified 08/03/24 11:56 Visit Medications Acetaminophen (Acetaminophen 325 Mg Tablet) 650 mg PO Q6H PRN PRN Reason: Fever >100.4 or pain 1-3 Stop: 09/24/24 14:09 Amiodarone HCl (Amiodarone Hcl 200 Mg Tablet) 200 mg PO BID NANDO Stop: 09/24/24 20:59 Apixaban (Apixaban 2.5 Mg Tablet) 5 mg PO BID [facility] Stop: 09/24/24 20:59 Dextrose (Dextrose 50%-Water Inj 50 Ml Syringe) 25 ml IV Q15MIN PRN PRN Reason: BG 50-70 responsive npo pt Stop: 09/24/24 11:46 Dextrose (Dextrose 50%-Water Inj 50 Ml Syringe) 50 ml IV Q15MIN PRN PRN Reason: BG <50 OR BG <70 & pt unresponsive Stop: 09/24/24 11:46 Docusate Sodium (Docusate Sod 100 Mg Capsule) 100 mg PO QDAY PRN; Protocol PRN Reason: CONSTIPATION Stop: 09/24/24 14:09 Fluconazole (Fluconazole 100 Mg Tablet) 200 mg PO BID [facility] Stop: 09/01/24 20:59 Glucagon (Glucagon Inj 1 Mg Vial) 1 mg IM Q15MIN PRN PRN Reason: BG <70, and no IV access Sodium Bicarbonate 88.23 meq/ (Dextrose) 588.23 mls @ 100 mls/hr IV .Q5H53M [facility] Stop: 09/24/24 14:12 Ondansetron HCl (Ondansetron Inj 2 Mg/Ml Inj 2 Ml) 4 mg IV Q6H PRN; Protocol PRN Reason: NAUSEA OR VOMITING Stop: 09/24/24 14:09 Sennosides (Senna Tablet) 1 tab PO QDAY PRN; Protocol PRN Reason: constipation Stop: 09/24/24 14:09 Sodium Chloride (Sodium Chloride Rt Zulema 0.9% 3 Ml Nebu) 3 ml INH PRN PRN PRN Reason: SOLN Stop: 09/24/24 11:53 Last Admin: 08/25/24 12:11 Dose: 3 ml Discontinued Medications Albuterol (Albuterol Rt 2.5 Mg/0.5 Ml Nebu) 7.5 mg INH X1 ONE Stop: 08/25/24 11:55 Last Admin: 08/25/24 12:10 Dose: 7.5 mg Calcium Chloride (Calcium Chloride 10% Inj 10 Ml Syrg) 10 ml IV X1 ONE Stop: 08/25/24 11:48 Last Admin: 08/25/24 12:14 Dose: 10 ml Furosemide (Furosemide Inj 10 Mg/Ml Vial 2 Ml) 40 mg IVP X1 ONE Stop: 08/25/24 11:48 Last Admin: 08/25/24 12:13 Dose: 40 mg Heparin Sodium (Porcine) (Heparin Sod Inj 5000 Unit/Ml Vial) 5,000 unit SC Q12HR NANDO Stop: 09/08/24 20:59 Dextrose (D10w 1000 Ml) 1,000 mls @ 100 mls/hr IV .Q10H NANDO Stop: 08/25/24 21:59 Last Admin: 08/25/24 12:14 Dose: 100 mls/hr Insulin Human Regular (Insulin Hum Regular 1 Unit/0.01 Ml (Per Unit)) 10 unit IV X1 ONE Stop: 08/25/24 11:48 Last Admin: 08/25/24 12:13 Dose: 10 unit Sodium Polystyrene Sulfonate (Sod Polystyrene Sulfon Susp 15 Gm/60 Ml Btl) 30 gm PO X1 ONE Stop: 08/25/24 11:48 Last Admin: 08/25/24 12:05 Dose: 30 gm Assessment & Plan Plan 64 y/o M with PMHx significant for hypertension, A-fib, CHF, cocci pneumonia on 08/09 presented after being found to have hyperkalemia and CHRIS on outpatient labs, admitted for acute renal failure with hyperkalemia. #Acute renal failure #Hyperkalemia Patient presented after outpatient follow-up for recent hospitalization and labs which showed acute renal failure with hyperkalemia at 7.0. Patient is asymptomatic, EKG does not show T wave changes, sinus rhythm. Patient received albuterol, Lasix, insulin, dextrose, calcium chloride in the ED. Repeat renal panel showed appropriate decrease in potassium, down to 5.6. - Nephrology consulted, appreciate recommendations - Bicarb drip - Hold home spironolactone, Entresto, dapagliflozin - Avoid nephrotoxins - Renally dose meds - Monitor daily labs #Cocci pneumonia Patient diagnosed with COVID-pneumonia on recent hospital visit, discharged on 200 mg fluconazole twice daily. Denies respiratory symptoms at this time. Lungs clear on exam. -Resume home fluconazole 200 mg p.o. twice daily #CHF #Hypertension #A-fib Patient history as stated. After recent admission, discharged on 08/09/24 with spironolactone, amiodarone, Entresto, dapagliflozin. - Holding spironolactone, Entresto, dapagliflozin in setting of hyperkalemia and acute renal failure. - Resume home amiodarone, Eliquis - Consider resuming home Eliquis DVT prophylaxis: Eliquis GI prophylaxis: None Diet: Cardiac, renal, fluid restrict 2 L Lines: Peripheral IV Code status: Full code Plan of care discussed with attending Dr. Dickson. Jass Johnson MD PGY?1 Attending Provider Attestation/Addendum Joana Crenshaw, DO, attest that I was physically present for the patton portions of the service and evaluated the patient with the resident and I reviewed and discussed the case with the resident and agree with the resident's findings and plans of care as documented above Patient is a 64-year-old male with past medical history of hypertension, A-fib, CHF, valley fever who was brought to ED due to abnormal labs outpatient. Patient was found to have elevated potassium of 7 and a bicarbonate of 17. Patient was recently started on Aldactone as part of goal-directed medical therapy for reduced ejection fraction of 40%. Patient was started on Farxiga as well and Entresto. Patient is now found to have a creatinine of 2.5 from 1.1. Patient received calcium chloride, Kayexalate, insulin and albuterol on presentation. No T wave changes noted on EKG. Will admit patient to telemetry for further evaluation of hyperkalemia and CHRIS. Will place patient on a bicarb drip as he is noted to have metabolic acidosis due to acute renal failure. Will hold any nephrotoxic agents at this time. Will repeat renal panel this evening to ensure that potassium is downtrending appropriately.
--- NOTE | 2024-08-25 15:23 | PC.NURSE ---
TAKEN TO FLOOR BY BRANDON REICH CONNECTED TO TELE
[2024-08-25] MEDS: Sodium Bicarb 8.4% 50ml Vial* 88.23 MEQ in DEXTROSE 5%-WATER 500 ML 100 MEQ IV (18:44)
[2024-08-25] MEDS: FLUCONAZOLE 100 MG TABLET 200 MG PO (20:49)
[2024-08-25] MEDS: AMIODARONE HCL 200 MG TABLET PO (20:49)
[2024-08-25] MEDS: APIXABAN 2.5 MG TABLET 5 MG PO (20:49)
[2024-08-25 21:19] LABS: Albumin, Serum 4.1 gm/dL (3.4-4.8); Anion Gap 10 (7-16); BUN/Creatinine Ratio 17 Ratio (12-20); Blood Urea Nitrogen 47 mg/dL (9-23); Calcium 9.4 mg/dL (8.3-10.6); Calcium (Corrected) 9.4 mg/dL (8.5-10.1); Carbon Dioxide 19.3 mMol/L (20.0-31.0); Chloride 102 mMol/L (98-107); Creatinine (Component) 2.7 mg/dL (0.6-1.3); Estimated Creatinine Clearance 32.3 mL/min (>60); Glucose 118 mg/dL (74-106); Osmolality,Calculated 275 (275-295); Phosphorous 5.3 mg/dL (2.4-5.1); Potassium 4.9 mMol/L (3.4-5.1); Sodium 131 mMol/L (136-145); eGFR 26 See Note
[2024-08-26] VITALS: BP 129/74; PULSE 65; PULSE 66; RESP 15; TEMP 36.4; O2SAT 96
[2024-08-26] MEDS: Sodium Bicarb 8.4% 50ml Vial* 88.23 MEQ in DEXTROSE 5%-WATER 500 ML 100 MEQ IV ×2 (00:51→06:21)
[2024-08-26 04:00] VITALS: BP 129/75; PULSE 63; PULSE 66; RESP 11; TEMP 36.3; O2SAT 95
[2024-08-26 06:00] VITALS: BMI 31.1
--- NOTE | 2024-08-26 06:01 | XR_ITS ---
Examination: Retroperitoneal ultrasound, complete Technique: Multiple high resolution grayscale images of the retroperitoneum obtained, including kidneys and bladder. Exam date and time:August 26, 2024 0811 hours INDICATIONS: Acute renal insufficiency on laboratory examination this week FINDINGS: Right kidney 10.4 cm cortex 1.7 cm Multiple small cysts, the largest 10 mm Left kidney 10.2 cm in the cortex 2.1 cm Multiple cysts, the largest 4.0 cm and 2.3 cm Mild bilateral renal parenchyma scar formation No hydronephrosis No bladder mass or bladder calculi Bladder prevoid volume 209 cc No prostatomegaly IMPRESSION: Bilateral benign renal cysts Mild bilateral renal parenchymal scar formation No hydronephrosis or renal calculi
[2024-08-26 06:07] LABS: Basophils # (Auto) 0.1 Thou/mm3 (0.0-0.2); Basophils % (Auto) 1 % (0-2.5); Eosinophils # (Auto) 0.2 Thou/mm3 (0.0-0.5); Eosinophils % (Auto) 3 % (0-10); Hematocrit 38.4 % (41.0-53.0); Hemoglobin 13.4 g/dL (13.5-16.0); Immature Granulocytes % (Auto) 0 % (0-0); Immature Granulocytes Auto 0.03 Thou/mm3 (0.00-0.00); Lymphocytes # (Auto) 2.5 Thou/mm3 (1.0-4.8); Lymphocytes % (Auto) 32 % (10-50); Mean Corpuscular HGB Conc 34.9 g/dl (31.0-37.0); Mean Corpuscular Hemoglobin 31.6 pg (25.0-35.0); Mean Corpuscular Volume 91 fL (80-100); Monocytes # (Auto) 0.8 Thou/mm3 (0.0-0.8); Monocytes % (Auto) 10 % (0-12); Neutrophils # (Auto) 4.1 Thou/mm3 (1.8-7.7); Neutrophils % (Auto) 53 % (37-80); Nucleated Red Blood Cell % 0 /100 WBC (0); Platelet Count 119 Thou/mm3 (140-440); RDW Standard Deviation 41.9 fL (35.1-43.9); Red Blood Count 4.24 Miln/mm3 (4.50-5.90); White Blood Count 7.7 Thou/mm3 (3.8-10.6)
[2024-08-26 06:41] LABS: Alanine Aminotransferase 30 U/L (10-49); Albumin, Serum 3.9 gm/dL (3.4-4.8); Albumin/Globulin Ratio 1.3 (1.2-2.2); Alkaline Phosphatase 61 U/L (46-116); Anion Gap 10 (7-16); Aspartate Amino Transferase 21 U/L (0-34); BUN/Creatinine Ratio 18 Ratio (12-20); Bilirubin,Total 1.3 mg/dL (0.3-1.2); Blood Urea Nitrogen 46 mg/dL (9-23); Calcium 9.1 mg/dL (8.3-10.6); Calcium (Corrected) 9.2 mg/dL (8.5-10.1); Carbon Dioxide 20.3 mMol/L (20.0-31.0); Chloride 100 mMol/L (98-107); Creatinine (Component) 2.6 mg/dL (0.6-1.3); Estimated Creatinine Clearance 33.2 mL/min (>60); Glucose 107 mg/dL (74-106); Osmolality,Calculated 272 (275-295); Phosphorous 5.4 mg/dL (2.4-5.1); Potassium 4.5 mMol/L (3.4-5.1); Sodium 130 mMol/L (136-145); Total Protein 6.9 gm/dL (5.7-8.2); eGFR 27 See Note
[2024-08-26 08:00] VITALS: BP 153/86; PULSE 76; PULSE 88; RESP 16; TEMP 36.3; O2SAT 959
[2024-08-26] MEDS: FLUCONAZOLE 100 MG TABLET 200 MG PO (08:26)
[2024-08-26 08:27] VITALS: BP 152/56; PULSE 76
[2024-08-26] MEDS: AMIODARONE HCL 200 MG TABLET PO (08:27)
[2024-08-26] MEDS: APIXABAN 2.5 MG TABLET 5 MG PO (08:28)
--- NOTE | 2024-08-26 11:51 | PD.RESPRO ---
Documentation for date of: 08/26/24 Subjective Subjective Interval history: Patient seen today at the bedside found awake, alert, oriented x 3. No overnight events reported. Patient was complaining of some acid reflux, pantoprazole was added to her regimen. Vital sign and labs reviewed. Kidney function has remained stable given his kidney function Eliquis and fluconazole were adjusted renally. Family member was at bedside all questions and concerns were answered. Exam Vital Signs Temp Pulse Resp BP Pulse Ox O2 Del Method 97.4 F 76 16 152/56 H 959 H Room Air 08/26/24 08:00 08/26/24 08:27 08/26/24 08:00 08/26/24 08:27 08/26/24 08:00 08/26/24 08:00 Narrative Exam Physical Exam GENERAL: NAD, AAOx3 HEENT: Moist mucosa. Eyes open, symmetrical, & clear CARDIO: Heart RRR, no obvious murmurs PULM: No noted coughing/dyspnea CTA B/L, no R/W/R GI: Abdomen soft, nondistended, no pain on palpation. BSx4 SKIN/MSK/EXT: No wounds/rashes/edema/amputations, no pain on palpation. Pedal pulses present B/L NEURO: AAOx3, no focal neuro deficits, able to move all 4 extremities Objective Labs 08/26/24 05:35 08/26/24 05:35 Labs: Laboratory Results - last 24 hr 08/25/24 08/25/24 08/25/24 12:11 14:25 20:49 WBC RBC Hgb Hct MCV MCH MCHC RDW Std Deviation Plt Count Neut % (Auto) Lymph % (Auto) Sac % (Auto) Eos % (Auto) Baso % (Auto) Neut # (Auto) Lymph # (Auto) Sac # (Auto) Eos # (Auto) Baso # (Auto) Immature Gran # (Auto) Absolute Nucleated RBC Immature Gran % Nucleated RBC % Sodium 134 L 131 L Potassium 5.6 H D 4.9 D Chloride 107 102 Carbon Dioxide 17.5 L 19.3 L Anion Gap 10 10 BUN 42 H 47 H Creatinine 2.5 H 2.7 H Estim Creat Clear Calc 34.9 L 32.3 L eGFR 28 L 26 L BUN/Creatinine Ratio 17 17 Glucose 125 H 118 H Calculated Osmolality 279 275 Calcium 10.2 9.4 Corrected Calcium 10.2 H 9.4 Phosphorus 4.3 5.3 H Magnesium Total Bilirubin AST ALT Alkaline Phosphatase B-Natriuretic Peptide 38 Total Protein Albumin 4.2 4.1 Globulin Albumin/Globulin Ratio 08/26/24 05:35 WBC 7.7 RBC 4.24 L Hgb 13.4 L D Hct 38.4 L MCV 91 MCH 31.6 MCHC 34.9 RDW Std Deviation 41.9 Plt Count 119 L D Neut % (Auto) 53 Lymph % (Auto) 32 Sac % (Auto) 10 Eos % (Auto) 3 Baso % (Auto) 1 Neut # (Auto) 4.1 Lymph # (Auto) 2.5 Sac # (Auto) 0.8 Eos # (Auto) 0.2 Baso # (Auto) 0.1 Immature Gran # (Auto) 0.03 H Absolute Nucleated RBC 0.00 Immature Gran % 0 Nucleated RBC % 0 Sodium 130 L Potassium 4.5 Chloride 100 Carbon Dioxide 20.3 Anion Gap 10 BUN 46 H Creatinine 2.6 H Estim Creat Clear Calc 33.2 L eGFR 27 L BUN/Creatinine Ratio 18 Glucose 107 H Calculated Osmolality 272 L Calcium 9.1 Corrected Calcium 9.2 Phosphorus 5.4 H Magnesium 2.0 Total Bilirubin 1.3 H AST 21 ALT 30 Alkaline Phosphatase 61 B-Natriuretic Peptide Total Protein 6.9 Albumin 3.9 Globulin 3.0 Albumin/Globulin Ratio 1.3 Quality Measures Quality Measures VTE prophylaxis Assessment & Plan Assessment Current Active Medications: Generic Name Dose Route Start Last Admin Trade Name Freq PRN Reason Stop Dose Admin Acetaminophen 650 mg 08/25/24 14:10 Acetaminophen 325 Mg Tablet PO 09/24/24 14:09 Q6H PRN Fever >100.4 or pain 1-3 Amiodarone HCl 200 mg 08/25/24 21:00 08/26/24 08:27 Amiodarone Hcl 200 Mg Tablet PO 09/24/24 20:59 200 mg BID NANDO Administration Apixaban 2.5 mg 08/26/24 21:00 Apixaban 2.5 Mg Tablet PO 09/25/24 20:59 BID NANDO Dextrose 25 ml 08/25/24 11:47 Dextrose 50%-Water Inj 50 Ml Syringe IV 09/24/24 11:46 Q15MIN PRN BG 50-70 responsive npo pt Dextrose 50 ml 08/25/24 11:47 Dextrose 50%-Water Inj 50 Ml Syringe IV 09/24/24 11:46 Q15MIN PRN BG <50 OR BG <70 & pt unresponsive Docusate Sodium 100 mg 08/25/24 14:10 Docusate Sod 100 Mg Capsule PO 09/24/24 14:09 QDAY PRN CONSTIPATION Protocol Fluconazole 200 mg 08/27/24 09:00 Fluconazole 100 Mg Tablet PO 09/03/24 08:59 QDAY NANDO Glucagon 1 mg 08/25/24 11:47 Glucagon Inj 1 Mg Vial IM Q15MIN PRN BG <70, and no IV access Ondansetron HCl 4 mg 08/25/24 14:10 Ondansetron Inj 2 Mg/Ml Inj 2 Ml IV 09/24/24 14:09 Q6H PRN NAUSEA OR VOMITING Protocol Pantoprazole Sodium 40 mg 08/26/24 11:45 Pantoprazole 40 Mg Tablet PO 09/25/24 11:44 QDAY NANDO Sennosides 1 tab 08/25/24 14:10 Senna Tablet PO 09/24/24 14:09 QDAY PRN constipation Protocol Sodium Chloride 3 ml 08/25/24 11:54 08/25/24 12:11 Sodium Chloride Rt Zulema 0.9% 3 Ml Nebu INH 09/24/24 11:53 3 ml PRN PRN Administration SOLN Plan 64 y/o M with PMHx significant for hypertension, A-fib, CHF, cocci pneumonia on 08/09 presented after being found to have hyperkalemia and CHRIS on outpatient labs, admitted for acute renal failure with hyperkalemia. #Acute renal failure #Hyperkalemia? Resolved Patient presented after outpatient follow-up for recent hospitalization and labs which showed acute renal failure with hyperkalemia at 7.0. Patient is asymptomatic, EKG does not show T wave changes, sinus rhythm. Patient received albuterol, Lasix, insulin, dextrose, calcium chloride in the ED. Repeat renal panel showed appropriate decrease in potassium, down to 5.6. At time of discharge spironolactone will be discontinued due to concern for hyperkalemia and Entresto will be held patient can follow-up with nephrology in regards to resuming these medications. - Nephrology consulted, appreciate recommendations ? DC bicarb drip - Hold home spironolactone, Entresto, dapagliflozin - Avoid nephrotoxins - Renally dose meds - Monitor daily labs #Cocci pneumonia Patient diagnosed with Cocci-pneumonia on recent hospital visit, discharged on 200 mg fluconazole twice daily. Denies respiratory symptoms at this time. Lungs clear on exam. ? Fluconazole 200 mg twice daily adjusted to daily per renal function #CHF #Hypertension #Atrial fibrillation Patient history as stated. After recent admission, discharged on 08/09/24 with spironolactone, amiodarone, Entresto, dapagliflozin. CHADVASC:2 ;Stroke risk was 2.2% per year - Holding spironolactone, Entresto, dapagliflozin in setting of hyperkalemia and acute renal failure. - fluid restriction 2L ? Continue amiodarone 200 mg twice daily ? Eliquis adjusted to 2.5 mg twice daily Plan of care discussed with attending Dr. Dickson. Adriano Kennedy MD PGY-1 DVT prophylaxis: Eliquis GI prophylaxis: None Diet: Cardiac, renal, fluid restrict 2 L Lines: Peripheral IV Code status: Full code
[2024-08-26] MEDS: PANTOPRAZOLE 40 MG TABLET PO (11:58)
[2024-08-26 12:00] VITALS: BP 148/80; PULSE 74; PULSE 76; RESP 18; TEMP 36.4; O2SAT 96
--- NOTE | 2024-08-26 14:46 | ESDS_ITS ---
<Statement entered by Joana Dickson DO - 08/27/24 11:56> I, Joana Dickson DO, attest that I was physically present for the patton portions of the service and evaluated the patient with the resident and I reviewed and discussed the case with the resident and agree with the resident's findings and plans of care as documented above Planned Discharge Date 08/26/24 DS: Providers Provider Date of admission: 08/25/24 13:47 Primary care physician: Shayna Grimm PA-C Admitting Provider: Joana Dickson DO Attending Provider on Admission: Joana Dickson DO Consults: 08/25/24 11:57 Consult to Nephrology Stat Comment: chris, hyperkalemia Consulting Provider: Marcela Childress Attending Provider on DC: Joana Dickson DO Discharging Provider: Adriano Kennedy MD Anticipated date of discharge: 08/26/24 DS: Diagnosis Problem List Completed Was Problem List Reviewed/Reconciled?: Yes Hospital Course Hospital Course Hospital course: 64-year-old male with past medical history of hypertension, atrial fibrillation, congestive heart failure, cocci pneumonia presented to the ED after found to have abnormal labs with hyperkalemia and CHRIS. During hospital stay patient was managed with hyperkalemia cocktail, was started on bicarbonate drip. Fluconazole was resumed as taken at home and later adjusted renally for his cocci pneumonia. For CHF, hypertension, atrial fibrillation home medications amiodarone, Eliquis were resumed. At the time of discharge patient spironolactone, Entresto and dapagliflozin were held. Nephrology cleared the patient for discharge and will see the patient in 2 weeks with CBC and renal panel. At this time patient is medically stable for discharge. Patient should follow- up with PCP within 1 week of discharge. Follow-up with accountant systems Dr Childress within 2 weeks of discharge with CBC and renal panel. Continue medications as prescribed. Fluconazole 200 mg daily dose was adjusted for kidney function. Dapagliflozin, Entresto, spironolactone were held until cleared by cardiology and nephrology. Should any symptoms recur or worsen patient is instructed to return to the ED Problem list: #Acute renal failure #Hyperkalemia-resolved #Cocci pneumonia #CHF #Hypertension #A-fib Case discussed with my attending Dr. Yessi Kennedy MD PGY-1 Status at Discharge Functional status at discharge: independent ambulation Overall status at discharge: patient is progressing back to baseline Time Spent with Patient Time attestation: Total time spent providing and/or coordinating discharge services: Time spent: Greater than 30 minutes Exam Vital Signs Temp Pulse Resp BP Pulse Ox O2 Del Method 97.5 F 74 18 148/80 H 96 Room Air 08/26/24 12:00 08/26/24 12:08/26/24 12:00 08/26/24 12:08/26/24 12:08/26/24 12:00 Narrative Exam Physical Exam GENERAL: NAD, AAOx3 HEENT: Moist mucosa. Eyes open, symmetrical, & clear CARDIO: Heart RRR, no obvious murmurs PULM: No noted coughing/dyspnea CTA B/L, no R/W/R GI: Abdomen soft, nondistended, no pain on palpation. BSx4 SKIN/MSK/EXT: No wounds/rashes/edema/amputations, no pain on palpation. Pedal pulses present B/L NEURO: AAOx3, no focal neuro deficits, able to move all 4 extremities Discharge Plan Plan Patient Disposition: HOME (Self Care) Patient condition on transfer: Stable Care Plan Goals: Follow up with Nephrology Dr. Childress within 2 weeks of discharge Follow up with primary care physician within 1 week of discharge Entresto, spironolactone, dapagliflozin were held as this likely was because of hyperkalemia and CHRIS please follow-up with nephrology in 2 weeks with CBC, renal panel to monitor kidney function Fluconazole dose was adjusted to 200 mg daily due to kidney function Should any symptoms recur or worsen patient is instructed to return to the ED. Prescriptions/Referrals Prescriptions/Med Rec: New fluconazole 200 mg tablet 200 mg PO QDAY 30 Days Qty: 30 0RF Continued amiodarone 200 mg Tablet 200 mg PO BID Qty: 60 3RF metoprolol succinate 100 mg tablet extended release 24 hr 100 mg PO BID Qty: 60 3RF Patient Comments: 50 mg BID Eliquis 5 mg tablet 5 mg PO BID Qty: 60 3RF Held spironolactone 25 mg Tablet 12.5 mg PO BID Qty: 60 3RF Hold Instructions: Resume on 09/17/24. Hold until seen by Nephrology and Cardiology Entresto 24-26 mg Tablet 1 tab PO BID Qty: 60 3RF Hold Instructions: Resume on 09/17/24. Hold until seen by Cardiology and Nephrology dapagliflozin propanediol 10 mg tablet 10 mg PO QDAY Qty: 30 3RF Hold Instructions: Resume on 09/17/24. Hold until seen by Nephrology Discontinued fluconazole 200 mg tablet 400 mg PO QDAY Qty: 60 3RF Referrals: Shayna Grimm PA-C [Primary Care Provider] - Outpatient Orders (i.e. Home Health, Labs, Imaging): CBC (Routine) Location: None Selected Ordered By: Adriano Kennedy Renal Function Panel (Routine) Location: None Selected Ordered By: Adriano Kennedy Patient/Caregiver Discharge Instructions Education Materials: Hyperkalemia Dc Print Language: Burmese Stand Alone Forms: Radha Award Info., Patient Portal Info Letter Discharge Order Discharge Orders: Discharge (Routine); Ordered 08/26/24 Ordered By: Adriano Kennedy Quality Discharge Quality Measures VTE prophylaxis
[2024-08-26 16:00] VITALS: BP 154/84; PULSE 77; PULSE 80; RESP 17; TEMP 36.1; O2SAT 96
--- NOTE | 2024-08-27 00:17 | ESCONSULT_ITS ---
RE: CHANDAN MICHAELS : 1960 DATE OF CONSULTATION: 08/26/2024 REASON FOR REFERRAL: Acute kidney injury. REFERRING PHYSICIAN: Hospitalist. 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 The patient was seen initially by his primary care physician and was found to be hyperkalemic. He was sent immediately to emergency room and while in emergency room was found to have a potassium of 7, with anti-hyperkalemic medications, potassium improved but he was also found with an elevated creatinine level. About 2 weeks ago, the patient has a normal kidney function, but when he presented to the emergency room, he was found with an elevated creatinine level. His baseline serum creatinine was anywhere from 0.9 to 1.1. Upon admission yesterday, creatinine was noted at 2.5, which peaked at 2.7. Today, creatinine is at 2.6. Two weeks ago, the patient was also here in the hospital and during that time he had a chemistry done and creatinine was 1.1. The patient also was found with heart failure with reduced ejection fraction of 40% and he was started on Entresto, Dapagliflozin, and spironolactone. All were held during this hospitalization. He said that he noticed that he was urinating a lot after he was discharged 2 weeks ago from the hospital. Today, sodium continues to be low at 130, but creatinine started to improve to 2.6 from 2.7 yesterday. The patient also started to make urine. PAST MEDICAL HISTORY: As previously mentioned, atrial fibrillation, on Eliquis and amiodarone, hypertension, congestive heart failure, Diabetes, pneumonia, surgical history of appendectomy. SOCIAL HISTORY: Former smoker. History of alcohol abuse. ALLERGIES: NO KNOWN DRUG ALLERGIES. CURRENT MEDICATIONS: 1. Albuterol. 2. Calcium chloride. 3. Furosemide 4 mg IV x1. 4. Regular insulin sliding scale. 5 Kayexalate 30 g p.o. x1. PHYSICAL EXAMINATION: General: He is awake, alert and oriented. by the bedside. Vital Signs: Blood pressure of 154/84. Heart rate of 80. Temperature 97.0. HEENT: Anicteric sclerae. Normocephalic. Neck: Supple. No JVD. Chest and Lungs: Symmetrical expansion. Clear breath sounds. Cardiac: Without murmur. Abdomen: Soft. Nontender. Extremities: No edema. LABORATORY DATA: Sodium 130, potassium 4.5, chloride 120.3, BUN 46, creatinine 2.6, glucose 107, calcium 9.2, phosphorus 5.4, hemoglobin 13.4, WBC 7700, platelet count [id number]. ASSESSMENT: 1. Acute kidney injury most likely secondary to dehydration from dapagliflozin while on Entresto, which has valsartan and sacubitril. The patient was also on spironolactone upon admission. 2. Hyperkalemia secondary to acute kidney injury, Entresto and spironolactone. 3. Heart failure with reduced ejection fraction of 40%. 4. Hyponatremia, possibly volume overload. 5. Hyperkalemia, now resolved. 6. History of hypertension. PLAN: I agree withholding the dapagliflozin for now, spironolactone, and Entresto. However, continue amiodarone and Eliquis to address his atrial fibrillation. I suspect that the combination of those three medications, SGLT2 inhibitor, which can cause dehydration was complicated with a diuretic, which is spironolactone and Entresto. The patient started to make more urine now and kidney function also started to improve. I would like to stop dapagliflozin, spironolactone, and Entresto for the time being until kidney function started to improve much further. Once kidney function is near normal, then I will one by one integrate SGLT2 inhibitor in the management of his congestive heart failure. Entresto and spironolactone may be added later on. Continue monitoring urine output, kidney function, electrolytes on a daily basis. DT: 21:41:59 TT: 22:35:00 Ref: [id number] - TID: [id number] MTDD
== END 2024-08-26 16:55 | disposition home or self-care (01) | DRG 683 ==
LOC: SERX 12:16 → SERHOLD 13:53 → S2NX 15:25
PROVIDERS: Nurse Practitioner Primary Care; Admitting Provider Internal Medicine; Emergency Provider Emergency Medicine; PCP Physician Assistant; Visit Provider Internal Medicine
DX: N17.9 Acute kidney failure, unspecified (principal); B38.0 Acute pulmonary coccidioidomycosis; B38.2 Pulmonary coccidioidomycosis, unspecified; I48.20 Chronic atrial fibrillation, unspecified; E87.1 Hypo-osmolality and hyponatremia; I50.20 Unspecified systolic (congestive) heart failure; E87.20 Acidosis, unspecified; E87.5 Hyperkalemia; I11.0 Hypertensive heart disease with heart failure; Z87.891 Personal history of nicotine dependence; Z86.16 Personal history of COVID-19
CPT/HCPCS: 36415; 71046; 76770; 80053; 80069; 81001; 83735; 83880; 84100; 84484; 85025; 85610; 85730; 93005; 94644; 99285; J1815; J1940; J7060; A9270

== ENCOUNTER → 2024-09-15 | Outpatient (CLI) | payer BC, SELFPAY ==
[2024-09-15 08:03] LABS: Collection Type, Urine Clean Catch; Squamous Epithelial Cell,Urine 0 /hpf (0-5)
[2024-09-15 08:35] LABS: Basophils # (Auto) 0.1 Thou/mm3 (0.0-0.2); Basophils % (Auto) 1 % (0-2.5); Eosinophils # (Auto) 0.1 Thou/mm3 (0.0-0.5); Eosinophils % (Auto) 2 % (0-10); Hematocrit 39.4 % (41.0-53.0); Hemoglobin 13.6 g/dL (13.5-16.0); Immature Granulocytes % (Auto) 0 % (0-0); Immature Granulocytes Auto 0.03 Thou/mm3 (0.00-0.00); Lymphocytes # (Auto) 2.7 Thou/mm3 (1.0-4.8); Lymphocytes % (Auto) 36 % (10-50); Mean Corpuscular HGB Conc 34.5 g/dl (31.0-37.0); Mean Corpuscular Hemoglobin 31.1 pg (25.0-35.0); Mean Corpuscular Volume 90 fL (80-100); Monocytes # (Auto) 0.7 Thou/mm3 (0.0-0.8); Monocytes % (Auto) 10 % (0-12); Neutrophils # (Auto) 3.8 Thou/mm3 (1.8-7.7); Neutrophils % (Auto) 51 % (37-80); Nucleated Red Blood Cell % 0 /100 WBC (0); Platelet Count 152 Thou/mm3 (140-440); Red Blood Count 4.37 Miln/mm3 (4.50-5.90); White Blood Count 7.4 Thou/mm3 (3.8-10.6)
[2024-09-15 08:46] LABS: Albumin, Serum 4.4 gm/dL (3.4-4.8); Anion Gap 9 (7-16); BUN/Creatinine Ratio 17 Ratio (12-20); Blood Urea Nitrogen 31 mg/dL (9-23); Calcium 9.2 mg/dL (8.3-10.6); Calcium (Corrected) 9.2 mg/dL (8.5-10.1); Carbon Dioxide 25.4 mMol/L (20.0-31.0); Chloride 106 mMol/L (98-107); Creatinine (Component) 1.8 mg/dL (0.6-1.3); Glucose 104 mg/dL (74-106); Osmolality,Calculated 285 (275-295); Phosphorous 3.6 mg/dL (2.4-5.1); Potassium 4.6 mMol/L (3.4-5.1); Sodium 140 mMol/L (136-145); eGFR 42 See Note
[2024-09-15 08:56] LABS: Bilirubin,Urine Negative (Negative); Blood,Urine Negative (Negative); Clarity,Urine Clear (Clear/Hazy); Color,Urine Lt-Yellow (Lt Yel-Yel); Glucose, Urine Negative (Negative); Hyaline Casts,Urine < 1 /hpf (0-1); Ketones,Urine Negative (Negative); Leukocyte Esterase,Urine Negative (Negative); Nitrite,Urine Negative (Negative); PH,Urine 5.5 (5.0-7.0); Protein,Urine Negative (Neg - Trace); RBC,Urine 1 /hpf (0-3); Specific Gravity,Urine 1.018 (1.001-1.035); Urobilinogen,Urine Negative mg/dL (0.0-1.0); WBC,Urine < 1 /hpf (0-5)
== END | disposition home or self-care (01) ==
PROVIDERS: PCP Family Medicine; Referring Provider Internal Medicine Nephrology; Visit Provider Internal Medicine Nephrology
DX: I10 Essential (primary) hypertension (principal)
CPT/HCPCS: 36415; 80069; 81001; 85025

== ENCOUNTER → 2024-10-20 | Outpatient (CLI) | payer BC, SELFPAY ==
[2024-10-20 08:06] LABS: Collection Type, Urine Clean Catch; Squamous Epithelial Cell,Urine 0 /hpf (0-5)
[2024-10-20 08:40] LABS: Basophils # (Auto) 0.1 Thou/mm3 (0.0-0.2); Basophils % (Auto) 1 % (0-2.5); Eosinophils # (Auto) 0.2 Thou/mm3 (0.0-0.5); Eosinophils % (Auto) 2 % (0-10); Hematocrit 38.4 % (41.0-53.0); Hemoglobin 13.4 g/dL (13.5-16.0); Immature Granulocytes % (Auto) 1 % (0-0); Immature Granulocytes Auto 0.09 Thou/mm3 (0.00-0.00); Lymphocytes # (Auto) 3.1 Thou/mm3 (1.0-4.8); Lymphocytes % (Auto) 30 % (10-50); Mean Corpuscular HGB Conc 34.9 g/dl (31.0-37.0); Mean Corpuscular Hemoglobin 31.5 pg (25.0-35.0); Mean Corpuscular Volume 90 fL (80-100); Monocytes # (Auto) 0.9 Thou/mm3 (0.0-0.8); Monocytes % (Auto) 9 % (0-12); Neutrophils # (Auto) 5.9 Thou/mm3 (1.8-7.7); Neutrophils % (Auto) 57 % (37-80); Nucleated Red Blood Cell % 0 /100 WBC (0); Platelet Count 165 Thou/mm3 (140-440); RDW Standard Deviation 47.2 fL (35.1-43.9); Red Blood Count 4.25 Miln/mm3 (4.50-5.90); White Blood Count 10.3 Thou/mm3 (3.8-10.6)
[2024-10-20 08:55] LABS: Parathyroid Hormone Intact 81.7 pg/ml (18.5-88.0)
[2024-10-20 08:58] LABS: Vitamin D 25 Hydroxy Total 31.8 ng/mL (7.3-40.2)
[2024-10-20 09:12] LABS: Bilirubin,Urine Negative (Negative); Blood,Urine Negative (Negative); Clarity,Urine Clear (Clear/Hazy); Color,Urine Lt-Yellow (Lt Yel-Yel); Glucose, Urine Negative (Negative); Ketones,Urine Negative (Negative); Leukocyte Esterase,Urine Negative (Negative); Nitrite,Urine Negative (Negative); Protein,Urine Negative (Neg - Trace); RBC,Urine 2 /hpf (0-3); Urobilinogen,Urine Negative mg/dL (0.0-1.0); WBC,Urine 1 /hpf (0-5)
[2024-10-20 09:12] LABS: Alanine Aminotransferase 24 U/L (10-49); Albumin, Serum 4.2 gm/dL (3.4-4.8); Alkaline Phosphatase 74 U/L (46-116); Anion Gap 7 (7-16); Aspartate Amino Transferase 23 U/L (0-34); BUN/Creatinine Ratio 11 Ratio (12-20); Bilirubin,Direct 0.2 mg/dL (0.0-0.3); Bilirubin,Total 0.6 mg/dL (0.3-1.2); Blood Urea Nitrogen 17 mg/dL (9-23); Calcium 8.9 mg/dL (8.3-10.6); Carbon Dioxide 27.2 mMol/L (20.0-31.0); Chloride 104 mMol/L (98-107); Creatinine (Component) 1.6 mg/dL (0.6-1.3); Glucose 106 mg/dL (74-106); Osmolality,Calculated 277 (275-295); Phosphorous 3.2 mg/dL (2.4-5.1); Potassium 4.3 mMol/L (3.4-5.1); Sodium 138 mMol/L (136-145); Total Protein 6.8 gm/dL (5.7-8.2); eGFR 48 See Note
== END | disposition home or self-care (01) ==
PROVIDERS: PCP Family Medicine; Referring Provider Internal Medicine Nephrology; Visit Provider Internal Medicine Nephrology
DX: E55.9 Vitamin D deficiency, unspecified (principal); E78.5 Hyperlipidemia, unspecified
CPT/HCPCS: 36415; 80048; 80076; 81001; 82306; 83970; 84100; 85025

== ENCOUNTER → 2024-11-01 | Outpatient (CLI) | payer BC, SELFPAY ==
[2024-11-01 10:51] LABS: Alanine Aminotransferase 19 U/L (10-49); Albumin, Serum 4.1 gm/dL (3.4-4.8); Albumin/Globulin Ratio 1.5 (1.2-2.2); Alkaline Phosphatase 67 U/L (46-116); Anion Gap 11 (7-16); Aspartate Amino Transferase 19 U/L (0-34); BUN/Creatinine Ratio 14 Ratio (12-20); Bilirubin,Total 1.2 mg/dL (0.3-1.2); Blood Urea Nitrogen 18 mg/dL (9-23); Calcium 8.8 mg/dL (8.3-10.6); Calcium (Corrected) 8.8 mg/dL (8.5-10.1); Carbon Dioxide 27.5 mMol/L (20.0-31.0); Cardiac Risk Estimate 4.7 RATIO (4.0-6.7); Chloride 102 mMol/L (98-107); Cholesterol 121 mg/dL (132-200); Creatinine (Component) 1.3 mg/dL (0.6-1.3); Globulin 2.7 gm/dL (2.3-3.5); Glucose 107 mg/dL (74-106); HDL Cholesterol 26 mg/dL (40-60); LDL Cholesterol,Calculated 66 mg/dL (0-130); Osmolality,Calculated 281 (275-295); Potassium 4.1 mMol/L (3.4-5.1); Sodium 140 mMol/L (136-145); Total Protein 6.8 gm/dL (5.7-8.2); Triglycerides 144 mg/dL (30-150); eGFR > 60 See Note
== END | disposition home or self-care (01) ==
LOC: COPL 09:25
PROVIDERS: PCP Family Medicine; Referring Provider Internal Medicine Cardiovascular Disease; Visit Provider Internal Medicine Cardiovascular Disease
DX: I48.91 Unspecified atrial fibrillation (principal); I50.9 Heart failure, unspecified
CPT/HCPCS: 36415; 80053; 80061

== ENCOUNTER → 2025-01-20 | Outpatient (CLI) | payer BC, SELFPAY ==
[2025-01-20 07:54] LABS: Collection Type, Urine Clean Catch; Squamous Epithelial Cell,Urine 0 /hpf (0-5)
[2025-01-20 08:36] LABS: Basophils # (Auto) 0.1 Thou/mm3 (0.0-0.2); Basophils % (Auto) 1 % (0-2.5); Eosinophils # (Auto) 0.1 Thou/mm3 (0.0-0.5); Eosinophils % (Auto) 1 % (0-10); Hematocrit 38.9 % (41.0-53.0); Hemoglobin 13.0 g/dL (13.5-16.0); Immature Granulocytes Auto 0.05 Thou/mm3 (0.00-0.00); Lymphocytes # (Auto) 2.8 Thou/mm3 (1.0-4.8); Lymphocytes % (Auto) 28 % (10-50); Mean Corpuscular HGB Conc 33.4 g/dl (31.0-37.0); Mean Corpuscular Hemoglobin 32.2 pg (25.0-35.0); Mean Corpuscular Volume 96 fL (80-100); Monocytes # (Auto) 0.8 Thou/mm3 (0.0-0.8); Monocytes % (Auto) 8 % (0-12); Neutrophils # (Auto) 6.0 Thou/mm3 (1.8-7.7); Neutrophils % (Auto) 61 % (37-80); Nucleated Red Blood Cell # 0.00 Thou/mm3 (0.00-0.00); Nucleated Red Blood Cell % 0 /100 WBC (0); Platelet Count 207 Thou/mm3 (140-440); RDW Standard Deviation 43.6 fL (35.1-43.9); Red Blood Count 4.04 Miln/mm3 (4.50-5.90); White Blood Count 9.8 Thou/mm3 (3.8-10.6)
[2025-01-20 08:44] LABS: Bilirubin,Urine Negative (Negative); Blood,Urine Negative (Negative); Clarity,Urine Clear (Clear/Hazy); Color,Urine Lt-Yellow (Lt Yel-Yel); Glucose, Urine Negative (Negative); Ketones,Urine Negative (Negative); Leukocyte Esterase,Urine Negative (Negative); Nitrite,Urine Negative (Negative); PH,Urine 6.0 (5.0-7.0); Protein,Urine Negative (Neg - Trace); RBC,Urine 1 /hpf (0-3); Specific Gravity,Urine 1.015 (1.001-1.035); Urobilinogen,Urine Negative mg/dL (0.0-1.0); WBC,Urine 1 /hpf (0-5)
[2025-01-20 09:20] LABS: Alanine Aminotransferase 19 U/L (10-49); Albumin, Serum 4.4 gm/dL (3.4-4.8); Alkaline Phosphatase 66 U/L (46-116); Anion Gap 10 (7-16); Aspartate Amino Transferase 22 U/L (0-34); BUN/Creatinine Ratio 15 Ratio (12-20); Bilirubin,Direct 0.3 mg/dL (0.0-0.3); Bilirubin,Total 1.1 mg/dL (0.3-1.2); Blood Urea Nitrogen 19 mg/dL (9-23); Calcium 9.4 mg/dL (8.3-10.6); Carbon Dioxide 24.6 mMol/L (20.0-31.0); Chloride 102 mMol/L (98-107); Creatinine (Component) 1.3 mg/dL (0.6-1.3); Glucose 105 mg/dL (74-106); Osmolality,Calculated 276 (275-295); Phosphorous 3.5 mg/dL (2.4-5.1); Potassium 4.4 mMol/L (3.4-5.1); Sodium 137 mMol/L (136-145); Total Protein 7.4 gm/dL (5.7-8.2); eGFR > 60 See Note
[2025-01-20 09:45] LABS: Cardiac Risk Estimate 4.0 RATIO (4.0-6.7); Cholesterol 123 mg/dL (132-200); HDL Cholesterol 31 mg/dL (40-60); LDL Cholesterol,Calculated 64 mg/dL (0-130); Triglycerides 141 mg/dL (30-150)
== END | disposition home or self-care (01) ==
LOC: COPL 06:39
PROVIDERS: PCP Internal Medicine Nephrology; Referring Provider Internal Medicine Nephrology; Visit Provider Internal Medicine Nephrology
DX: E78.5 Hyperlipidemia, unspecified (principal)
CPT/HCPCS: 36415; 80048; 80061; 80076; 81001; 84100; 85025

== ENCOUNTER → 2025-04-26 | Outpatient (CLI) | payer MEDICAID, SELFPAY ==
--- NOTE | 2025-04-26 09:15 | XR_ITS ---
Study: Carotid Doppler. INDICATION:: Dizziness and giddiness. TECHNIQUE: Grayscale ultrasound with color flow Doppler. 54 images at 0912 hours 26 April 2025. FINDINGS: Right side: Velocities of the common, proximal, middle and distal internal and external carotid arteries are 0.7, 0.6, 0.6, 0.6 and 0.8 m/s. The JH/CCA ratio is 0.9. Vertebral artery flow is antegrade. Left side: The velocities of the common, proximal, middle and distal internal and external carotid arteries are 0.7, 0.7, 0.8, 0.8 and 1.1 m/s. The LICA/CCA ratio is 1.2. Vertebral artery flow is antegrade. IMPRESSION: No hemodynamically significant stenosis.
== END | disposition home or self-care (01) ==
PROVIDERS: PCP Physician Assistant; Referring Provider Physician Assistant; Visit Provider Physician Assistant
DX: R42 Dizziness and giddiness (principal)
CPT/HCPCS: 93880